=== PATIENT | male | born 1970 | race Caucasian/White ===

== ENCOUNTER 2016-09-19 15:25 | Emergency (ER) | payer SELFPAY ==
[2016-09-19 15:33] VITALS: BP 135/89; PULSE 105; RESP 18; TEMP 98.4
--- NOTE | 2016-09-19 15:42 | ED ---
General Adult HPI - General Chief complaint: Extremity Injury, Lower Stated complaint: Foot Pain Time Seen by Provider: 09/19/16 15:33 Source: patient, RN notes reviewed Mode of arrival: ambulatory Limitations: no limitations - History of Present Illness Initial comments: This is a 46-year-old male presents with right foot pain since yesterday. Patient states he was at work when a work lift ran over his right foot. Patient has been walking since the incident but states there is pain to the medial aspect of the right foot into the great toe. Patient denies any numbness /tingling or weakness. Patient is not on any anticoagulants.Patient denies any recent fever, chills, shortness breath, chest pain, abdominal pain, nausea/ vomiting/diarrhea, back pain,hematuria, headache, or visual changes, or any other complaints. - Related Data Previous Rx's Medication Instructions Recorded HYDROcodone/APAP 5-325MG [[place] 1 tab PO Q6HR #10 tab 09/19/16 5-325] Allergies Allergy/AdvReac Type Severity Reaction Status Date / Time No Known Allergies Allergy Verified 09/19/16 15:32 Review of Systems ROS Statement: Those systems with pertinent positive or pertinent negative responses have been documented in the HPI. ROS Other: All systems not noted in ROS Statement are negative. Past Medical History Past Medical History: No Reported History Additional Past Medical History / Comment(s): HEARING DIFFICULTY, alcohol abuse in the past, heart murmur History of Any Multi-Drug Resistant Organisms: None Reported Past Surgical History: Hernia Repair Additional Past Surgical History / Comment(s): MULTIPLE EAR SURGERIES Past Anesthesia/Blood Transfusion Reactions: No Reported Reaction Past Psychological History: No Psychological Hx Reported Smoking Status: Current every day smoker Past Alcohol Use History: Occasional Past Drug Use History: None Reported - Past Family History Son(s) Family Medical History: Diabetes Mellitus General Exam - General Exam Comments Initial Comments: General: The patient is awake and alert, in no distress, and does not appear acutely ill. Neck: The neck is supple, there is no tenderness or JVD. Cardiovascular: There is a regular rate and rhythm. No murmur, rub or gallop is appreciated. Respiratory: Lungs are clear to auscultation, respirations are non-labored, breath sounds are equal. No wheezes, stridor, rales, or rhonchi. Musculoskeletal: There is tenderness to palpation of the medial aspect of the right foot and over the MTP joint of the first digit on the right foot. There is mild swelling and mild erythema to these areas as well. No ecchymosis. Limited range of motion with flexion and extension of the right toes due to pain. No tenderness with palpation of the medial or lateral malleoli of the right ankle. Full range of motion of the right ankle. Strength 5/5 and Sensation intact. Posterior tibial and dorsalis pedis pulses 2+ bilaterally. Capillary refill is normal at less than 2 seconds. Neurological: A&O x 3. CN II-XII intact, There are no obvious motor or sensory deficits. Coordination appears grossly intact. Speech is normal. Skin: Skin is warm and dry and no rashes or lesions are noted. Psychiatric: Normal mood and affect. Limitations: no limitations Course Vital Signs 09/19/16 15:30 Temperature 98.4 F Pulse Rate 105 H Respiratory 18 Rate Blood Pressure 135/89 O2 Sat by Pulse 98 Oximetry Medical Decision Making - Medical Decision Making This is a 46-year-old male presents with right foot pain since yesterday after getting his foot run over by a forklift at work. On physical exam there is tenderness to palpation of the medial aspect of the right foot and over the MTP joint of the first digit on the right foot. There is mild swelling and mild erythema to these areas as well. No ecchymosis. Limited range of motion with flexion and extension of the right toes due to pain. Full range of motion of the right ankle. Strength 5/5 and Sensation intact. Posterior tibial and dorsalis pedis pulses 2+ bilaterally. Capillary refill is normal at less than 2 seconds. An x-ray of the right foot was done and reviewed showing: There is soft tissue swelling present. Bone mineralization, joint spaces and alignment are maintained. Lucency at medial first digit sesamoid bone could be indicative of fracture or normal variant, correlate for tenderness. No dislocation is evident. Follow-up is indicated. Report read by Dr. Wilkinson. I discussed the results with patient. A short leg posterior OCL splint to the right lower extremity was placed. Neurovascular was rechecked and is intact. Patient was instructed to stay non-weightbearing to the right lower extremity. Patient was instructed to rest, ice, elevate and keep splint on until follow-up with orthopedics. Patient has crutches at home. Discussed patient will be given a short course of [place] for breakthrough pain. Discussed over-the- counter Tylenol or Motrin as needed for pain as well. Discussed with patient to follow-up with orthopedics in the next 1-2 days. Discussed return parameters. Please return to the [facility] symptoms worsen or for any other concerns. Disposition Clinical Impression: Fracture of right foot Disposition: HOME SELF-CARE Condition: Good Instructions: Foot Fracture in Adults (ED) Additional Instructions: Please rest, ice, elevate, and use splint for support. Please stay nonweightbearing to the right lower extremity and use crutches. Please use over -the-counter Motrin and/or Tylenol for pain, may use norco for breakthrough pain. Please follow up with orthopedics tomorrow or as soon as possible. Please return to the [facility] for any worsening symptoms or for any further concerns. Prescriptions: HYDROcodone/APAP 5-325MG [[place] 5-325] 1 tab PO Q6HR #10 tab Referrals: Trino Ely MD [Primary Care Provider] - 1-2 days Logan Pickering MD [STAFF PHYSICIAN] - 1-2 days Time of Disposition: 16:22
--- NOTE | 2016-09-19 15:59 | XR ---
Right foot HISTORY: Trauma and pain 3 views of the right foot, no comparisons There is soft tissue swelling present. Bone mineralization, joint spaces and alignment are maintained . Lucency at medial first digit sesamoid bone could be indicative of fracture or normal variant, eliceo elate for tenderness. IMPRESSION: No dislocation is evident. Follow-up as indicated. Additional findings above.
== END 2016-09-19 16:32 | disposition home or self-care (01) ==
LOC: EC 15:25
DX: S92.901A Unspecified fracture of right foot, initial encounter for closed fracture (principal); V09.00XA Pedestrian injured in nontraffic accident involving unspecified motor vehicles, initial encounter; Y92.69 Other specified industrial and construction area as the place of occurrence of the external cause; Y99.0 Civilian activity done for income or pay; F17.200 Nicotine dependence, unspecified, uncomplicated
CPT/HCPCS: 29515; 99283

== ENCOUNTER 2016-11-28 14:02 | Emergency (ER) | payer OTHER ==
[2016-11-28 14:12] VITALS: RESP 18; TEMP 99.2
[2016-11-28] MEDS ORDERED: MORPHINE SULFATE 4 MG/ML SYRINGE IV STA (16:29)
[2016-11-28] MEDS ORDERED: SODIUM CHLORIDE 0.9% 500 ML IV STA (16:29)
[2016-11-28 17:00] LABS: Basophils # (A) 0.1 k/uL (0-0.2); Basophils % (A) 1 %; CH 32.3; CHCM 32.8; Eosinophils # (A) 0.1 k/uL (0-0.7); Eosinophils % (A) 2 %; HCT 47.3 % (39.0-53.0); HDW 2.17; HGB 15.5 gm/dL (13.0-17.5); Luc # (Auto) 0.23; Luc % (Auto) 3; Lymphocytes # (A) 1.4 k/uL (1.0-4.8); Lymphocytes % (A) 22 %; MCH 32.3 pg (25.0-35.0); MCHC 32.7 g/dL (31.0-37.0); MCV 98.9 fL (80.0-100.0); Monocytes # (A) 0.3 k/uL (0-1.0); Monocytes % (A) 5 %; Neutrophils # (A) 4.4 k/uL (1.3-7.7); Neutrophils % (A) 67 %; RBC 4.78 m/uL (4.30-5.90); RDW 13.1 % (11.5-15.5); WBC 6.6 k/uL (3.8-10.6); WBC (Perox) 6.67
--- NOTE | 2016-11-28 17:01 | XR ---
EXAMINATION TYPE: XR chest 2V DATE OF EXAM: 11/28/2016 4:58 PM COMPARISON: 05/19/2016 HISTORY: Chest pain TECHNIQUE: Frontal and lateral views of the chest are obtained. FINDINGS: There is no focal air space opacity. No evidence for pnuemothorax.No pleural effusion. The cardiac silhouette size is within normal limits. The osseous structures are grossly intact. IMPRESSION: 1. No acute cardiopulmonary process.
[2016-11-28 17:07] LABS: ALT 33 U/L (21-72); AST 29 U/L (17-59); Alkaline Phosphatase 92 U/L (38-126); Anion Gap 10 mmol/L; Blood Urea Nitrogen 10 mg/dL (9-20); Calcium 9.3 mg/dL (8.4-10.2); Carbon Dioxide 22 mmol/L (22-30); Chloride 104 mmol/L (98-107); Glucose 198 mg/dL (74-99); Non-African American GFR(MDRD) >60 (>60 ml/min/1.73 sqM); Potassium 4.2 mmol/L (3.5-5.1); Sodium 136 mmol/L (137-145); Total Bilirubin 0.7 mg/dL (0.2-1.3); Total Protein 7.7 g/dL (6.3-8.2)
[2016-11-28 17:17] LABS: Appearance,Urine Clear (Clear); Bilirubin,Urine Negative (Negative); Glucose,Urine (UA) 3+ (Negative); Ketones,Urine Negative (Negative); Leukocyte Esterase,Urine Negative (Negative); Nitrite,Urine Negative (Negative); Protein,Urine Negative (Negative); UA Billing (MACRO vs. MICRO) CHEM; Urobilinogen,Urine <2.0 mg/dL (<2.0)
--- NOTE | 2016-11-28 18:16 | CT ---
EXAMINATION TYPE: CT abdomen pelvis w con DATE OF EXAM: 11/28/2016 5:45 PM COMPARISON: 09/16/2015 HISTORY: Pt states of abdominal pain x1 week. CT DLP: 340.5 mGycm Automated exposure control for dose reduction was used. TECHNIQUE: Helical acquisition of images was performed from the lung bases through the pelvis. CONTRAST: Performed without Oral Contrast and with IV Contrast, patient injected with 100 mL of Omnipaque 300. FINDINGS: Lung bases are clear. There is no pleural effusion. Heart size is normal. Liver shows no focal defect . Spleen appears normal. There is no pancreatic mass. Gallbladder appears normal. Bile ducts are not dilated. There is no adrenal mass. Kidneys show satisfactory contrast opacification. There is no hydronephrosi s. There is no retroperitoneal adenopathy. There is no ascites. Bladder distends smoothly. There is n o sign of a pelvic mass. The bony structures appear intact. There are surgical clips at the gastroeso phageal junction. I see no intestinal wall thickening. There are some small bowel loops that measure up to 3.3 cm in diameter. I do not see evidence for a mechanical bowel obstruction however. There is fluid in the right colon. IMPRESSION: THERE IS EVIDENCE OF SMALL BOWEL ILEUS. THIS IS SIMILAR TO THE OLD CT SCAN OF 09/16/2015. NO EVIDENCE OF A BOWEL OBSTRUCTION.
--- NOTE | 2016-11-28 18:35 | ED ---
Abdominal Pain HPI - General Chief Complaint: Abdominal Pain Stated Complaint: chest & abdominal pain Time Seen by Provider: 11/28/16 15:56 Source: patient Mode of arrival: ambulatory Limitations: no limitations - History of Present Illness Initial Comments: Patient complains of belly pain, chest pain. The pain is in the left side. Nothing makes it better or worse. He has taken no medication for this. He was not doing anything when he began to feel this way. He has no lightheadedness or dizziness. He has no nausea or vomiting. He is tolerating oral intake. He has no neck pain or stiffness. He denies injuries. He has no pain or swelling the legs. He has no palpitations. - Related Data Home Medications Medication Instructions Recorded Confirmed Ibuprofen [Advil] 200 mg PO Q8HR PRN 11/28/16 11/28/16 Allergies Allergy/AdvReac Type Severity Reaction Status Date / Time No Known Allergies Allergy Verified 11/28/16 16:10 Review of Systems ROS Statement: Those systems with pertinent positive or pertinent negative responses have been documented in the HPI. ROS Other: All systems not noted in ROS Statement are negative. Past Medical History Past Medical History: No Reported History Additional Past Medical History / Comment(s): HEARING DIFFICULTY, alcohol abuse in the past, heart murmur History of Any Multi-Drug Resistant Organisms: None Reported Past Surgical History: Hernia Repair Additional Past Surgical History / Comment(s): MULTIPLE EAR SURGERIES Past Anesthesia/Blood Transfusion Reactions: No Reported Reaction Past Psychological History: No Psychological Hx Reported Smoking Status: Current every day smoker Past Alcohol Use History: Occasional Past Drug Use History: None Reported - Past Family History Son(s) Family Medical History: Diabetes Mellitus General Exam Limitations: no limitations General appearance: alert, in no apparent distress Head exam: Present: atraumatic, normocephalic, normal inspection Eye exam: Present: normal appearance, PERRL, EOMI. Absent: scleral icterus, conjunctival injection, periorbital swelling ENT exam: Present: normal exam, mucous membranes moist Neck exam: Present: normal inspection. Absent: tenderness, meningismus, lymphadenopathy Respiratory exam: Present: normal lung sounds bilaterally. Absent: respiratory distress, wheezes, rales, rhonchi, stridor Cardiovascular Exam: Present: regular rate, normal rhythm, normal heart sounds. Absent: systolic murmur, diastolic murmur, rubs, gallop, clicks GI/Abdominal exam: Present: soft, tenderness, normal bowel sounds. Absent: distended, guarding, rebound, rigid Extremities exam: Present: normal inspection, full ROM, normal capillary refill. Absent: tenderness, pedal edema, joint swelling, calf tenderness Back exam: Present: normal inspection Neurological exam: Present: alert, oriented X3, CN II-XII intact Psychiatric exam: Present: normal affect, normal mood Skin exam: Present: warm, dry, intact, normal color. Absent: rash Course Vital Signs 11/28/16 11/28/16 14:09 16:30 Temperature 99.2 F Pulse Rate 100 Pulse Rate [ 89 Apical] Respiratory 18 Rate Blood Pressure 138/88 O2 Sat by Pulse 97 Oximetry Medical Decision Making - Medical Decision Making Patient complains of abdominal pain and chest pain. His physical exam reveals abdominal tenderness. CAT scan reveals a mild ileus but no obstruction. He is tolerating oral intake. The rest of his labs are normal. There is no evidence of acute coronary syndrome. X-ray of the chest is negative. Patient is feeling better and is stable for discharge. - Lab Data Result diagrams: 11/28/16 16:46 11/28/16 16:46 Lab Results 11/28/16 11/28/16 11/28/16 Range/Units 16:46 16:46 16:46 WBC 6.6 (3.8-10.6) k/uL RBC 4.78 (4.30-5.90) m/uL Hgb 15.5 (13.0-17.5) gm/dL Hct 47.3 (39.0-53.0) % MCV 98.9 (80.0-100.0) fL MCH 32.3 (25.0-35.0) pg MCHC 32.7 (31.0-37.0) g/dL RDW 13.1 (11.5-15.5) % Plt Count 228 (150-450) k/uL Neutrophils % 67 % Lymphocytes % 22 % Monocytes % 5 % Eosinophils % 2 % Basophils % 1 % Neutrophils # 4.4 (1.3-7.7) k/uL Lymphocytes # 1.4 (1.0-4.8) k/uL Monocytes # 0.3 (0-1.0) k/uL Eosinophils # 0.1 (0-0.7) k/uL Basophils # 0.1 (0-0.2) k/uL Sodium 136 L (137-145) mmol/L Potassium 4.2 (3.5-5.1) mmol/L Chloride 104 (98-107) mmol/L Carbon Dioxide 22 (22-30) mmol/L Anion Gap 10 mmol/L BUN 10 (9-20) mg/dL Creatinine 0.60 L (0.66-1.25) mg/dL Est GFR (MDRD) Af Amer >60 (>60 ml/min/1.73 sqM) Est GFR (MDRD) Non-Af >60 (>60 ml/min/1.73 sqM) Glucose 198 H (74-99) mg/dL Calcium 9.3 (8.4-10.2) mg/dL Total Bilirubin 0.7 (0.2-1.3) mg/dL AST 29 (17-59) U/L ALT 33 (21-72) U/L Alkaline Phosphatase 92 (38-126) U/L Troponin I <0.012 (0.000-0.034) ng/mL Total Protein 7.7 (6.3-8.2) g/dL Albumin 3.9 (3.5-5.0) g/dL Lipase 105 (23-300) U/L Urine Color Urine Appearance (Clear) Urine pH (5.0-8.0) Ur Specific [place] (1.001-1.035) Urine Protein (Negative) Urine Glucose (UA) (Negative) Urine Ketones (Negative) Urine Blood (Negative) Urine Nitrite (Negative) Urine Bilirubin (Negative) Urine Urobilinogen (<2.0) mg/dL Ur Leukocyte Esterase (Negative) 11/28/16 Range/Units 17:02 WBC (3.8-10.6) k/uL RBC (4.30-5.90) m/uL Hgb (13.0-17.5) gm/dL Hct (39.0-53.0) % MCV (80.0-100.0) fL MCH (25.0-35.0) pg MCHC (31.0-37.0) g/dL RDW (11.5-15.5) % Plt Count (150-450) k/uL Neutrophils % % Lymphocytes % % Monocytes % % Eosinophils % % Basophils % % Neutrophils # (1.3-7.7) k/uL Lymphocytes # (1.0-4.8) k/uL Monocytes # (0-1.0) k/uL Eosinophils # (0-0.7) k/uL Basophils # (0-0.2) k/uL Sodium (137-145) mmol/L Potassium (3.5-5.1) mmol/L Chloride (98-107) mmol/L Carbon Dioxide (22-30) mmol/L Anion Gap mmol/L BUN (9-20) mg/dL Creatinine (0.66-1.25) mg/dL Est GFR (MDRD) Af Amer (>60 ml/min/1.73 sqM) Est GFR (MDRD) Non-Af (>60 ml/min/1.73 sqM) Glucose (74-99) mg/dL Calcium (8.4-10.2) mg/dL Total Bilirubin (0.2-1.3) mg/dL AST (17-59) U/L ALT (21-72) U/L Alkaline Phosphatase (38-126) U/L Troponin I (0.000-0.034) ng/mL Total Protein (6.3-8.2) g/dL Albumin (3.5-5.0) g/dL Lipase (23-300) U/L Urine Color Yellow Urine Appearance Clear (Clear) Urine pH 5.0 (5.0-8.0) Ur Specific [place] 1.010 (1.001-1.035) Urine Protein Negative (Negative) Urine Glucose (UA) 3+ H (Negative) Urine Ketones Negative (Negative) Urine Blood Negative (Negative) Urine Nitrite Negative (Negative) Urine Bilirubin Negative (Negative) Urine Urobilinogen <2.0 (<2.0) mg/dL Ur Leukocyte Esterase Negative (Negative) Disposition Clinical Impression: Chest pain Disposition: HOME SELF-CARE Condition: Good Instructions: Ileus (ED), Chest Pain (ED) Time of Disposition: 18:34
[2016-11-28 19:31] VITALS: BP 117/84; PULSE 67
== END 2016-11-28 19:31 | disposition home or self-care (01) ==
LOC: EC 14:02
DX: R07.9 Chest pain, unspecified (principal); K56.7 Ileus, unspecified; F17.200 Nicotine dependence, unspecified, uncomplicated
CPT/HCPCS: 36415; 93005; 80053; 83690; 84484; 85025; 81003; 71020; 74177; 99284; 96374; 96361 ×3; J2270; Q9967

== ENCOUNTER 2017-03-31 10:45 | Emergency (ER) | payer OTHER ==
[2017-03-31 10:55] VITALS: RESP 16
--- NOTE | 2017-03-31 11:07 | ED ---
Extremity Problem HPI - General Chief complaint: Extremity Problem,Nontraumatic Stated complaint: left middle finger infection Time Seen by Provider: 03/31/17 11:01 Source: patient, RN notes reviewed Mode of arrival: ambulatory Limitations: no limitations - History of Present Illness Initial comments: 46-year-old male presents emergency Department chief complaint of swelling to his left hand middle finger. Patient states that he started noticing or proximal one month ago but still much worse last week. Patient states it is painful and swollen. Patient complains of paresthesias of his hands states that is normal forearm that he uses hands quite often wakes up with them failure his hands are asleep. Denies any decreased function. Patient denies any fever or chills. He states his tetanus is up-to-date. Patient states he tried to poke a needle into the area swelling but nothing came out. - Related Data Home Medications Medication Instructions Recorded Confirmed Ibuprofen [Advil] 200 - 800 mg PO Q8HR PRN 11/28/16 03/31/17 Previous Rx's Medication Instructions Recorded Sulfamethox-Tmp 800-160Mg [Bactrim 1 each PO Q12HR #20 tab 03/31/17 Ds] Allergies Allergy/AdvReac Type Severity Reaction Status Date / Time No Known Allergies Allergy Verified 03/31/17 11:27 Review of Systems ROS Statement: Those systems with pertinent positive or pertinent negative responses have been documented in the HPI. ROS Other: All systems not noted in ROS Statement are negative. Past Medical History Past Medical History: No Reported History Additional Past Medical History / Comment(s): HEARING DIFFICULTY, alcohol abuse in the past, heart murmur hiatal hernia History of Any Multi-Drug Resistant Organisms: None Reported Past Surgical History: Hernia Repair Additional Past Surgical History / Comment(s): MULTIPLE EAR SURGERIES Past Anesthesia/Blood Transfusion Reactions: No Reported Reaction Past Psychological History: No Psychological Hx Reported Smoking Status: Current every day smoker Past Alcohol Use History: Occasional Past Drug Use History: None Reported - Past Family History Son(s) Family Medical History: Diabetes Mellitus General Exam Limitations: no limitations General appearance: alert, in no apparent distress Respiratory exam: Present: normal lung sounds bilaterally. Absent: respiratory distress, wheezes, rales, rhonchi, stridor Cardiovascular Exam: Present: regular rate, normal rhythm, normal heart sounds. Absent: systolic murmur, diastolic murmur, rubs, gallop, clicks Extremities exam: Present: other (Left hand third digit on medial aspect of the finger between the PIP and DIP there is a 2 cm area of swelling that is boggy or fluctuant slightly erythematous Refill less than 2 seconds patient's full range of motion) Skin exam: Present: warm, dry Course Vital Signs 03/31/17 10:52 Temperature 98.2 F Pulse Rate 87 Respiratory 16 Rate Blood Pressure 135/87 O2 Sat by Pulse 98 Oximetry Procedures - Incision & Drainage Consent Obtained: verbal consent Indication: Your abscess Site: hand (Left hand third digit) Size (cm): 2 Anesthetic Used: lidocaine 1%, without epi Amount (mLs): 3 I&D Cleaning Method: Alcohol Wipe Needle Aspiration Performed?: Yes I&D Drainage Obtained: Pus, Blood Patient Tolerated Procedure: well, no complications Medical Decision Making - Medical Decision Making 46-year-old male present emergency Department for finger swelling. Patient has no abscess which was open and drain. Wound culture was taken patient will be placed on antibiotics return parameters were discussed. Disposition Clinical Impression: Abscess of finger Disposition: HOME SELF-CARE Condition: Stable Instructions: Abscess (ED) Additional Instructions: Please return to the Emergency Department if symptoms worsen or any other concerns. Prescriptions: Sulfamethox-Tmp 800-160Mg [Bactrim Ds] 1 each PO Q12HR #20 tab Referrals: Trino Ely MD [Primary Care Provider] - 1-2 days Gildardo Alexander DO [Doctor of Osteopathic Medicine] - 1-2 days Time of Disposition: 11:49
--- NOTE | 2017-03-31 11:20 | XR ---
EXAMINATION TYPE: XR finger LT DATE OF EXAM: 03/31/2017 COMPARISON: NONE HISTORY: Third digit pain TECHNIQUE: 3 radiographic views of the left third digit were obtained. FINDINGS: There is asymmetric and eccentric swelling of the soft tissues overlying the ulnar aspect o f the middle phalanx of the third digit. No periosteal reaction or osseous fracture is identified. No erosions are seen. Osseous mineralization is unremarkable. Remainder the visualized left hand is als o unremarkable. IMPRESSION: Eccentric soft tissue swelling over the radial aspect of the mid third digit without unde rlying osseous abnormality.
[2017-03-31 12:15] VITALS: BP 142/97; PULSE 80; TEMP 98.8
== END 2017-03-31 12:15 | disposition home or self-care (01) ==
LOC: EC 10:45
DX: L02.512 Cutaneous abscess of left hand (principal); F17.200 Nicotine dependence, unspecified, uncomplicated
CPT/HCPCS: 10160; 87070; 87205; 99283

== ENCOUNTER 2017-10-14 17:04 | Emergency (ER) | payer SELFPAY ==
[2017-10-14] MEDS ORDERED: SODIUM CHLORIDE 0.9% 1,000 ML IV STA (20:05)
--- NOTE | 2017-10-14 20:29 | ED ---
Abdominal Pain HPI - General Chief Complaint: Abdominal Pain Stated Complaint: Chest pain Time Seen by Provider: 10/14/17 19:43 Source: patient, RN notes reviewed Mode of arrival: ambulatory Limitations: no limitations - History of Present Illness Initial Comments: This is a 47-year-old male who presents to the emergency department with chief complaint of chest and abdominal pain. Patient states that on Friday during work he began to have chest pain. He states the chest pain was central in location and "just hurt." He states that the pain is made worse when he takes a deep breath. He also complains of associated shortness of breath. Patient states he is a current every day smoker. He denies any recent surgeries or hospitalizations. Patient states that Friday morning he began having nausea and vomiting. He states that he is able to keep liquids down but cannot keep food down. He denies any sick contacts. He also complains of fevers and chills. Fevers have not been recorded. He did not receive the influenza vaccine this year. Patient states that yesterday he began to develop right- sided abdominal pain. This pain is intermittent, occurring every 2 hours and is sharp in nature. Patient denies any history of abdominal surgeries. - Related Data Home Medications Medication Instructions Recorded Confirmed Ibuprofen [Advil] 200 - 800 mg PO Q8HR PRN 11/28/16 10/14/17 Allergies Allergy/AdvReac Type Severity Reaction Status Date / Time No Known Allergies Allergy Verified 10/14/17 20:09 Review of Systems ROS Statement: Those systems with pertinent positive or pertinent negative responses have been documented in the HPI. ROS Other: All systems not noted in ROS Statement are negative. Past Medical History Past Medical History: No Reported History Additional Past Medical History / Comment(s): HEARING DIFFICULTY, alcohol abuse in the past, heart murmur hiatal hernia History of Any Multi-Drug Resistant Organisms: None Reported Past Surgical History: Hernia Repair Additional Past Surgical History / Comment(s): MULTIPLE EAR SURGERIES Past Anesthesia/Blood Transfusion Reactions: No Reported Reaction Past Psychological History: No Psychological Hx Reported Smoking Status: Current every day smoker Past Alcohol Use History: Occasional Past Drug Use History: None Reported - Past Family History Son(s) Family Medical History: Diabetes Mellitus General Exam - General Exam Comments Initial Comments: General: Awake and alert, well-developed; in no apparent distress. HEENT: Head atraumatic, normocephalic. Pupils are equal, round and reactive to light. Extraocular movements intact. Oropharynx moist without erythema or exudate. Neck: Supple. Normal ROM. Cardiovascular: Regular rate and rhythm. No murmurs, rubs or gallops. Chest symmetrical. Respiratory: Lungs clear to auscultation bilaterally. No wheezes, rales or rhonchi. Normal respiratory effort with no use of accessory muscles. Abdomen: Soft, non-tender, non-distended. No rigidity, rebound or guarding.Normal bowel sounds x 4 quadrants. Musculoskeletal: Normal ROM, no tenderness bilateral upper and lower extremities. Ambulating normally. Skin: [place], warm and dry without rashes or lesions. Neurological: Alert and oriented x3. CN II-XII grossly intact. Speech is fluent and answers are appropriate. No focal neuro deficits. Psychiatric: Normal mood and affect. No overt signs of depression or anxiety noted. Limitations: no limitations Course Vital Signs 10/14/17 10/14/17 17:48 22:34 Temperature 97.6 F 98.6 F Pulse Rate 92 88 Respiratory 20 18 Rate Blood Pressure 134/84 156/92 O2 Sat by Pulse 98 100 Oximetry Medical Decision Making - Medical Decision Making This is a 47-year-old male who presents to the emergency department for evaluation of chest pain and abdominal pain. CBC and CMP were within normal limits. UA was normal. Patient was given Pepcid and Zofran as well as GI cocktail in the emergency department. He states that he is no longer having abdominal or chest pain after receiving these medications. EKG revealed sinus rhythm with short HI. When compared to previous EKG there are no obvious changes. No ST elevation or depression noted. Troponin was negative. Discussed with patient admission as cardiac cause for his pain cannot be completely ruled out. Patient refuses, stating that he will follow up with his primary care physician tomorrow for treatment of acid reflux. Patient will be discharged home. Vital signs are stable and he is in no acute distress. Return parameters were discussed. All questions answered. - Lab Data Result diagrams: 10/14/17 20:19 10/14/17 20:19 Lab Results 10/14/17 10/14/17 10/14/17 Range/Units 20:19 20:19 20:19 WBC 6.4 (3.8-10.6) k/uL RBC 4.90 (4.30-5.90) m/uL Hgb 15.4 (13.0-17.5) gm/dL Hct 48.9 (39.0-53.0) % MCV 99.7 (80.0-100.0) fL MCH 31.4 (25.0-35.0) pg MCHC 31.5 (31.0-37.0) g/dL RDW 13.1 (11.5-15.5) % Plt Count 224 (150-450) k/uL Neutrophils % 55 % Lymphocytes % 31 % Monocytes % 6 % Eosinophils % 3 % Basophils % 1 % Neutrophils # 3.5 (1.3-7.7) k/uL Lymphocytes # 2.0 (1.0-4.8) k/uL Monocytes # 0.4 (0-1.0) k/uL Eosinophils # 0.2 (0-0.7) k/uL Basophils # 0.1 (0-0.2) k/uL PT (9.0-12.0) sec INR (<1.2) APTT (22.0-30.0) sec Sodium 140 (137-145) mmol/L Potassium 4.5 (3.5-5.1) mmol/L Chloride 105 (98-107) mmol/L Carbon Dioxide 22 (22-30) mmol/L Anion Gap 13 mmol/L BUN 6 L (9-20) mg/dL Creatinine 0.59 L (0.66-1.25) mg/dL Est GFR (MDRD) Af Amer >60 (>60 ml/min/1.73 sqM) Est GFR (MDRD) Non-Af >60 (>60 ml/min/1.73 sqM) Glucose 94 (74-99) mg/dL Calcium 9.6 (8.4-10.2) mg/dL Total Bilirubin 0.4 (0.2-1.3) mg/dL AST 30 (17-59) U/L ALT 29 (21-72) U/L Alkaline Phosphatase 104 (38-126) U/L Total Creatine Kinase 57 (55-170) U/L CK-MB (CK-2) 0.5 (0.0-2.4) ng/mL CK-MB (CK-2) Rel Index 0.9 Troponin I <0.012 (0.000-0.034) ng/mL Total Protein 8.2 (6.3-8.2) g/dL Albumin 4.3 (3.5-5.0) g/dL Amylase 96 (30-110) U/L Lipase 124 (23-300) U/L Urine Color Urine Appearance (Clear) Urine pH (5.0-8.0) Ur Specific Holden (1.001-1.035) Urine Protein (Negative) Urine Glucose (UA) (Negative) Urine Ketones (Negative) Urine Blood (Negative) Urine Nitrite (Negative) Urine Bilirubin (Negative) Urine Urobilinogen (<2.0) mg/dL Ur Leukocyte Esterase (Negative) 10/14/17 10/14/17 Range/Units 20:19 20:19 WBC (3.8-10.6) k/uL RBC (4.30-5.90) m/uL Hgb (13.0-17.5) gm/dL Hct (39.0-53.0) % MCV (80.0-100.0) fL MCH (25.0-35.0) pg MCHC (31.0-37.0) g/dL RDW (11.5-15.5) % Plt Count (150-450) k/uL Neutrophils % % Lymphocytes % % Monocytes % % Eosinophils % % Basophils % % Neutrophils # (1.3-7.7) k/uL Lymphocytes # (1.0-4.8) k/uL Monocytes # (0-1.0) k/uL Eosinophils # (0-0.7) k/uL Basophils # (0-0.2) k/uL PT 9.3 (9.0-12.0) sec INR 0.9 (<1.2) APTT 22.4 (22.0-30.0) sec Sodium (137-145) mmol/L Potassium (3.5-5.1) mmol/L Chloride (98-107) mmol/L Carbon Dioxide (22-30) mmol/L Anion Gap mmol/L BUN (9-20) mg/dL Creatinine (0.66-1.25) mg/dL Est GFR (MDRD) Af Amer (>60 ml/min/1.73 sqM) Est GFR (MDRD) Non-Af (>60 ml/min/1.73 sqM) Glucose (74-99) mg/dL Calcium (8.4-10.2) mg/dL Total Bilirubin (0.2-1.3) mg/dL AST (17-59) U/L ALT (21-72) U/L Alkaline Phosphatase (38-126) U/L Total Creatine Kinase (55-170) U/L CK-MB (CK-2) (0.0-2.4) ng/mL CK-MB (CK-2) Rel Index Troponin I (0.000-0.034) ng/mL Total Protein (6.3-8.2) g/dL Albumin (3.5-5.0) g/dL Amylase (30-110) U/L Lipase (23-300) U/L Urine Color Yellow Urine Appearance Clear (Clear) Urine pH 6.0 (5.0-8.0) Ur Specific Holden 1.006 (1.001-1.035) Urine Protein Negative (Negative) Urine Glucose (UA) Negative (Negative) Urine Ketones Negative (Negative) Urine Blood Negative (Negative) Urine Nitrite Negative (Negative) Urine Bilirubin Negative (Negative) Urine Urobilinogen <2.0 (<2.0) mg/dL Ur Leukocyte Esterase Negative (Negative) - EKG Data EKG Comments: EKG at 18:01:30. Sinus rhythm with short HI. Septal infarct, age undetermined. Ventricular rate 78 bpm, HI interval 110, QRS duration 86, QT/ QTC 356/405. No evidence of ST segment elevation or depression. - Radiology Data Radiology results: report reviewed X-ray KUB findings: There is no sign of intestinal instruction or pneumoperitoneum. Physical pattern is normal. There are no pathologic calcifications over the kidneys. Lung bases are clear consolidation. There is slight blunting of left costophrenic angle. Impression: Pleural diaphragmatic scarring of the left lung base without change. Nonacute abdomen. Disposition Clinical Impression: Atypical chest pain Disposition: HOME SELF-CARE Condition: Good Instructions: Chest Pain (ED), Gastroesophageal Reflux Disease (ED) Additional Instructions: Please follow up with your primary care physician tomorrow morning. Please follow up with primary care provider within 1-2 days. Return to emergency department if symptoms should worsen or any concerns arise. Referrals: Trino Ely MD [Primary Care Provider] - 1-2 days Time of Disposition: 22:15
[2017-10-14 20:36] LABS: Basophils # (A) 0.1 k/uL (0-0.2); Basophils % (A) 1 %; Eosinophils # (A) 0.2 k/uL (0-0.7); Eosinophils % (A) 3 %; HCT 48.9 % (39.0-53.0); HGB 15.4 gm/dL (13.0-17.5); Lymphocytes % (A) 31 %; MCH 31.4 pg (25.0-35.0); MCHC 31.5 g/dL (31.0-37.0); MCV 99.7 fL (80.0-100.0); Mean Platelet Volume 6.9; Monocytes # (A) 0.4 k/uL (0-1.0); Monocytes % (A) 6 %; Neutrophils # (A) 3.5 k/uL (1.3-7.7); Neutrophils % (A) 55 %; Platelet Count 224 k/uL (150-450); RDW 13.1 % (11.5-15.5); WBC 6.4 k/uL (3.8-10.6)
[2017-10-14] MEDS ORDERED: FAMOTIDINE 20 MG/2 ML VIAL IV STA (20:36)
[2017-10-14] MEDS ORDERED: ONDANSETRON 4 MG/2 ML VIAL IVP STA (20:36)
[2017-10-14 20:41] LABS: Appearance,Urine Clear (Clear); Bilirubin,Urine Negative (Negative); Blood,Urine Negative (Negative); Color,Urine Yellow; Glucose,Urine (UA) Negative (Negative); Ketones,Urine Negative (Negative); Leukocyte Esterase,Urine Negative (Negative); Nitrite,Urine Negative (Negative); Protein,Urine Negative (Negative); Specific Gravity,Urine 1.006 (1.001-1.035); Urobilinogen,Urine <2.0 mg/dL (<2.0)
[2017-10-14 20:48] LABS: INR 0.9 (<1.2); Partial Thromboplastin Time 22.4 sec (22.0-30.0); Prothrombin Time 9.3 sec (9.0-12.0)
--- NOTE | 2017-10-14 20:48 | XR ---
EXAMINATION TYPE: XR KUB DATE OF EXAM: 10/14/2017 COMPARISON: 09/17/2015 HISTORY: Abdominal pain TECHNIQUE: 2 views FINDINGS: There is no sign of intestinal obstruction or pneumoperitoneum. Fecal pattern is normal. Th ere are no pathologic calcifications over the kidneys. Lung bases are clear of consolidation. There i s slight blunting of left costophrenic angle. IMPRESSION: Pleural diaphragmatic scarring at the left lung base without change. Nonacute abdomen.
[2017-10-14 20:57] LABS: ALT 29 U/L (21-72); AST 30 U/L (17-59); Albumin 4.3 g/dL (3.5-5.0); Alkaline Phosphatase 104 U/L (38-126); Amylase 96 U/L (30-110); Anion Gap 13 mmol/L; Blood Urea Nitrogen 6 mg/dL (9-20); Calcium 9.6 mg/dL (8.4-10.2); Carbon Dioxide 22 mmol/L (22-30); Chloride 105 mmol/L (98-107); Glucose 94 mg/dL (74-99); Lipase 124 U/L (23-300); Potassium 4.5 mmol/L (3.5-5.1); Sodium 140 mmol/L (137-145); Total Bilirubin 0.4 mg/dL (0.2-1.3); Total Protein 8.2 g/dL (6.3-8.2)
[2017-10-14] MEDS ORDERED: MAG HYDROX/AL HYDROX/SIMETH 30 ML, HYOSCYAMINE ELIXIR 10 ML, CIMETIDINE HCL 300 MG, LID... PO STA ×4 (21:20)
[2017-10-14 21:33] LABS: Creatine Kinase 57 U/L (55-170)
[2017-10-14 21:46] LABS: Creatine Kinase MB 0.5 ng/mL (0.0-2.4); Troponin I <0.012 ng/mL (0.000-0.034)
[2017-10-14 22:35] VITALS: BP 156/92; PULSE 88; RESP 18; TEMP 98.6
== END 2017-10-14 22:34 | disposition home or self-care (01) ==
LOC: EC 17:04
DX: R07.89 Other chest pain (principal); R06.02 Shortness of breath; R11.2 Nausea with vomiting, unspecified; F17.200 Nicotine dependence, unspecified, uncomplicated
CPT/HCPCS: 99284; 96374; 96375; 96361; 36415; 93005; 80053; 82150; 82550; 82553; 83690; 84484; 85025; 85610; 85730; 81003; 87086; 74018; J2405

== ENCOUNTER 2017-10-21 15:06 | Emergency (ER) | payer SELFPAY ==
[2017-10-21 15:10] VITALS: RESP 18
[2017-10-21] MEDS ORDERED: SODIUM CHLORIDE 0.9% 1,000 ML IV STA (15:26)
[2017-10-21] MEDS ORDERED: methylPREDNISolone SOD SUCCI 125 MG/2 ML VIAL IV STA (15:26)
[2017-10-21] MEDS ORDERED: IPRATROPIUM-ALBUTEROL 3 ML NEB INHALATION STA (15:26)
[2017-10-21] MEDS ORDERED: LABETALOL 5 MG/ML VIAL MDV IVP STA (15:38)
--- NOTE | 2017-10-21 15:38 | ED ---
Chest Pain HPI - General Chief Complaint: Chest Pain Stated Complaint: chest pain Time Seen by Provider: 10/21/17 15:11 Source: patient, RN notes reviewed, old records reviewed Mode of arrival: ambulatory Limitations: no limitations - History of Present Illness Initial Comments: This patient is a 47-year-old male presents emergency department increased chest pain, shortness of breath and productive cough for the past few days. Patient reports that he was seen in the emergency department and was diagnosed with GERD and chest pain and was advised to follow-up with his primary care provider. Patient reports he has not followed up with primary care provider. He states that his symptoms are seeming to become worse. He reports that when he takes deep breath he has some pain on his right side of his lungs. Patient states that he is a smoker. Denies lower extremity swelling or pain. Patient also reports he's had intermittent fevers for the past 2 days. Patient denies any recent fever, chills, , back pain, abdominal pain, nausea vomiting, numbness or tingling, dysuria or hematuria, constipation or diarrhea, headaches or visual changes, or any other current symptoms - Related Data Home Medications Medication Instructions Recorded Confirmed Omeprazole 20 mg PO DAILY 10/21/17 10/21/17 Previous Rx's Medication Instructions Recorded Albuterol Inhaler [Ventolin Hfa 1 - 2 puff INHALATION Q6HR PRN #1 10/21/17 Inhaler] inhaler Levofloxacin [Levaquin] 750 mg PO DAILY #5 tab 10/21/17 predniSONE 50 mg PO DAILY #5 tablet 10/21/17 Allergies Allergy/AdvReac Type Severity Reaction Status Date / Time No Known Allergies Allergy Verified 10/21/17 15:54 Review of Systems ROS Statement: Those systems with pertinent positive or pertinent negative responses have been documented in the HPI. ROS Other: All systems not noted in ROS Statement are negative. EKG Findings - EKG Comments: EKG Findings:: EKG performed at 1517 shows sinus rhythm with short HI. Septal infarct age undetermined. Patient's is evidence of abnormal EKG. Ventricular rate of 77 bpm. HI interval 108 ms. QRS duration 84 ms. QT QTc is 354/400 ms. Past Medical History Past Medical History: GERD/Reflux Additional Past Medical History / Comment(s): HEARING DIFFICULTY, alcohol abuse in the past, heart murmur History of Any Multi-Drug Resistant Organisms: None Reported Past Surgical History: Hernia Repair Additional Past Surgical History / Comment(s): MULTIPLE EAR SURGERIES Past Anesthesia/Blood Transfusion Reactions: No Reported Reaction Past Psychological History: No Psychological Hx Reported Smoking Status: Current every day smoker Past Alcohol Use History: Occasional Past Drug Use History: None Reported - Past Family History Son(s) Family Medical History: Diabetes Mellitus General Exam - General Exam Comments Initial Comments: 47-year-old male. No acute distress. Limitations: no limitations General appearance: alert, in no apparent distress Head exam: Present: atraumatic, normocephalic, normal inspection Eye exam: Present: normal appearance, PERRL, EOMI. Absent: scleral icterus, conjunctival injection, periorbital swelling ENT exam: Present: normal exam, mucous membranes moist Neck exam: Present: normal inspection. Absent: tenderness, meningismus, lymphadenopathy Respiratory exam: Present: normal lung sounds bilaterally. Absent: respiratory distress, wheezes, rales, rhonchi, stridor Cardiovascular Exam: Present: regular rate, normal rhythm, normal heart sounds. Absent: systolic murmur, diastolic murmur, rubs, gallop, clicks GI/Abdominal exam: Present: soft, normal bowel sounds. Absent: distended, tenderness, guarding, rebound, rigid Neurological exam: Present: alert, oriented X3, CN II-XII intact Psychiatric exam: Present: normal affect, normal mood Course Vital Signs 10/21/17 10/21/17 10/21/17 15:07 15:52 15:54 Temperature 98.1 F Pulse Rate 83 74 Respiratory 18 Rate Blood Pressure 171/93 157/70 O2 Sat by Pulse 97 Oximetry 10/21/17 10/21/17 16:04 17:38 Temperature 97.9 F Pulse Rate 74 78 Respiratory 18 Rate Blood Pressure 160/86 O2 Sat by Pulse 97 Oximetry Chest Pain MDM - [facility] 47-year-old male with extensive smoking history and poor compliance presents with shortness of breath and cough. Low-grade fever's. He reports he's been having some chest pain as well. Patient's EKG was reviewed and she has no cute changes. Troponins are negative. Patient's lab work was reviewed and negative for any significant abnormalities. Just x-ray shows no events of pneumonia. Patient did have some wheezing have Surekha. He was given a breathing treatment IV steroids. Treated as COPD exacerbation. At this time patient reports that he feels well and would like to go home. I did discuss that he will be starting on steroids anabiotic's for COPD exacerbation. I discussed that he needs have very close follow up with primary care fighter. Also seems to have an a component of Gerd reflecting hisPain. Patient ports that has a very poorly compliant patient continues to smoke and will not follow the diet for Gerd. I just got a genius to do these things. I just got returned trailers. Patient agrees to treatment plan and will comply. Disposition Clinical Impression: COPD (chronic obstructive pulmonary disease) Disposition: HOME SELF-CARE Condition: Good Instructions: COPD (Chronic Obstructive Pulmonary Disease) (ED) Additional Instructions: Patient advised to follow-up with primary care physician. Take the medications as prescribed. Return to emergency department if any alarming signs or symptoms occur. Monitor diet and avoid any foods associated with GERD including acidic foods. Prescriptions: Albuterol Inhaler [Ventolin Hfa Inhaler] 1 - 2 puff INHALATION Q6HR PRN #1 inhaler PRN Reason: Shortness Of Breath Levofloxacin [Levaquin] 750 mg PO DAILY #5 tab predniSONE 50 mg PO DAILY #5 tablet Referrals: Trino Ely MD [Primary Care Provider] - 1-2 days Time of Disposition: 17:29
[2017-10-21 15:54] LABS: Basophils % (A) 1 %; Eosinophils # (A) 0.1 k/uL (0-0.7); Eosinophils % (A) 1 %; HCT 47.8 % (39.0-53.0); HGB 15.2 gm/dL (13.0-17.5); Lymphocytes # (A) 1.5 k/uL (1.0-4.8); Lymphocytes % (A) 26 %; MCH 31.6 pg (25.0-35.0); MCHC 31.8 g/dL (31.0-37.0); MCV 99.1 fL (80.0-100.0); Mean Platelet Volume 7.2; Monocytes # (A) 0.5 k/uL (0-1.0); Monocytes % (A) 10 %; Neutrophils # (A) 3.4 k/uL (1.3-7.7); Neutrophils % (A) 58 %; Platelet Count 211 k/uL (150-450); RBC 4.82 m/uL (4.30-5.90); RDW 13.1 % (11.5-15.5); WBC 5.8 k/uL (3.8-10.6)
[2017-10-21 15:59] LABS: ALT 17 U/L (21-72); AST 26 U/L (17-59); Albumin 4.1 g/dL (3.5-5.0); Alkaline Phosphatase 130 U/L (38-126); Anion Gap 10 mmol/L; Blood Urea Nitrogen 9 mg/dL (9-20); Calcium 9.5 mg/dL (8.4-10.2); Carbon Dioxide 24 mmol/L (22-30); Chloride 103 mmol/L (98-107); Glucose 149 mg/dL (74-99); Magnesium 2.1 mg/dL (1.6-2.3); Potassium 4.6 mmol/L (3.5-5.1); Sodium 137 mmol/L (137-145); Total Bilirubin 0.5 mg/dL (0.2-1.3); Total Protein 7.9 g/dL (6.3-8.2)
[2017-10-21 16:01] LABS: D-Dimer 0.5 mg/L FEU (<0.60); INR 0.9 (<1.2); Partial Thromboplastin Time 22.9 sec (22.0-30.0); Prothrombin Time 9.4 sec (9.0-12.0)
[2017-10-21 16:12] LABS: Creatine Kinase 50 U/L (55-170)
--- NOTE | 2017-10-21 16:24 | XR ---
EXAMINATION TYPE: XR chest 2V DATE OF EXAM: 10/21/2017 COMPARISON: Prior chest x-ray 11/28/2016 HISTORY: Difficulty breathing, shortness of breath TECHNIQUE: Frontal and lateral views of the chest are obtained. FINDINGS: There is no focal air space opacity, pleural effusion, or pneumothorax seen. The cardiac silhouette size is within normal limits. Prominent lung volumes again noted suggesting underlying [employer] D. Patient is rotated. The osseous structures are intact. IMPRESSION: No acute cardiopulmonary process.
[2017-10-21 16:25] LABS: Creatine Kinase MB 0.3 ng/mL (0.0-2.4); Troponin I <0.012 ng/mL (0.000-0.034)
[2017-10-21 17:40] VITALS: BP 160/86; PULSE 78; TEMP 97.9
== END 2017-10-21 17:40 | disposition home or self-care (01) ==
LOC: EC 15:06
DX: J44.9 Chronic obstructive pulmonary disease, unspecified (principal); K21.9 Gastro-esophageal reflux disease without esophagitis; F17.200 Nicotine dependence, unspecified, uncomplicated; Z79.899 Other long term (current) drug therapy
CPT/HCPCS: 99285; 96374; 96361; 36415; 94640; 93005; 85379; 83880; 80053; 82550; 82553; 83735; 84484; 85025; 85610; 85730; 87040; 71046; J2930

== ENCOUNTER 2018-03-15 12:06 | Emergency (ER) | payer BC ==
[2018-03-15 12:24] VITALS: BP 110/77; PULSE 88; RESP 18; TEMP 98.3
--- NOTE | 2018-03-15 12:37 | ED ---
ENT HPI - General Chief complaint: ENT Stated complaint: Ear laceration Time Seen by Provider: 03/15/18 12:25 Source: patient, RN notes reviewed Mode of arrival: ambulatory Limitations: no limitations - History of Present Illness Initial comments: This a 47-year-old male presents emergency Department with chief complaint of right ear laceration. He states that he was dismantling a pop-up camper and states that there was a spring holding the one site on states that when he removed it it shot off the campers striking his ear. He states that he did not lose consciousness that he complains of a headache at this time. Patient has a laceration of the top of his right ear and states he did not realize the extent of it until this morning. Patient had reconstructive surgery on his right TM in the past. Patient states his tetanus was updated 2 years ago denies any bleeding from his ear canal. - Related Data Previous Rx's Medication Instructions Recorded Albuterol Inhaler [Ventolin Hfa 1 - 2 puff INHALATION Q6HR PRN #1 10/21/17 Inhaler] inhaler Cephalexin [Keflex] 500 mg PO Q6HR #40 cap 03/15/18 Allergies Allergy/AdvReac Type Severity Reaction Status Date / Time No Known Allergies Allergy Verified 03/15/18 12:23 Review of Systems ROS Statement: Those systems with pertinent positive or pertinent negative responses have been documented in the HPI. ROS Other: All systems not noted in ROS Statement are negative. Past Medical History Past Medical History: GERD/Reflux Additional Past Medical History / Comment(s): HEARING DIFFICULTY, alcohol abuse in the past, heart murmur History of Any Multi-Drug Resistant Organisms: None Reported Past Surgical History: Hernia Repair Additional Past Surgical History / Comment(s): MULTIPLE EAR SURGERIES Past Anesthesia/Blood Transfusion Reactions: No Reported Reaction Past Psychological History: No Psychological Hx Reported Smoking Status: Current every day smoker Past Alcohol Use History: Occasional Past Drug Use History: Marijuana - Past Family History Son(s) Family Medical History: Diabetes Mellitus General Exam Limitations: no limitations General appearance: alert, in no apparent distress Head exam: Present: atraumatic, normocephalic, normal inspection Eye exam: Present: normal appearance, PERRL, EOMI. Absent: scleral icterus, conjunctival injection, periorbital swelling ENT exam: Present: normal oropharynx, mucous membranes moist, TM's normal bilaterally. Absent: normal external ear exam (There is a laceration at the helix of the right ear it is through and through no active bleeding) Neck exam: Present: normal inspection, full ROM. Absent: tenderness, meningismus, lymphadenopathy Respiratory exam: Present: normal lung sounds bilaterally. Absent: respiratory distress, wheezes, rales, rhonchi, stridor Cardiovascular Exam: Present: regular rate, normal rhythm, normal heart sounds. Absent: systolic murmur, diastolic murmur, rubs, gallop, clicks Neurological exam: Present: alert, oriented X3, CN II-XII intact, reflexes normal. Absent: motor sensory deficit Skin exam: Present: warm, dry, intact, normal color. Absent: rash Course Vital Signs 03/15/18 12:21 Temperature 98.3 F Pulse Rate 88 Respiratory 18 Rate Blood Pressure 110/77 O2 Sat by Pulse 97 Oximetry Medical Decision Making - Medical Decision Making 47-year-old male presented from for right ear laceration. Patient's laceration is over 18 hours old. There will be no closure at this time he'll be started on antibiotics. He did have a CT of his brain which showed no abnormality. Patient will follow-up with on-call ENT Dr. Murillo. Return parameters were discussed. Disposition Clinical Impression: Head injury, Laceration of ear Disposition: HOME SELF-CARE Condition: Stable Instructions: Laceration (ED) Additional Instructions: Please return to the Emergency Department if symptoms worsen or any other concerns. Prescriptions: Cephalexin [Keflex] 500 mg PO Q6HR #40 cap Is patient prescribed a controlled substance at d/c from ED?: No Referrals: Trino Ely MD [Primary Care Provider] - 1-2 days Cole Murillo MD [STAFF PHYSICIAN] - 1-2 days Time of Disposition: 13:19
--- NOTE | 2018-03-15 13:13 | CT ---
EXAMINATION TYPE: CT brain wo con DATE OF EXAM: 03/15/2018 COMPARISON: Previous study dated 05/19/2016. HISTORY: Hit in right ear with pipe CT DLP: 1121 mGycm Automated exposure control for dose reduction was used. FINDINGS: Central structures are midline. There is no evidence of hydrocephalus. No acute focal lesion, mass ef fect or midline shift is seen. I do not see evidence of intracranial blood. There is chronic mucoperiosteal thickening involving the ethmoid sinuses bilaterally. There is undera eration of the mastoid air cells. This may be due to chronic mastoiditis. IMPRESSION: 1. NO ACUTE INTRACRANIAL ABNORMALITY. 2. CHRONIC ETHMOIDAL SINUS MUCOSAL DISEASE. 3. UNDERAERATION OF THE MASTOIDS MAY BE DUE TO CHRONIC MASTOID DISEASE.
[2018-03-15] MEDS ORDERED: KETOROLAC 60 MG/2 ML VIAL IM STA (13:21)
== END 2018-03-15 13:41 | disposition home or self-care (01) ==
LOC: EC 12:06
DX: S01.311A Laceration without foreign body of right ear, initial encounter (principal); S09.90XA Unspecified injury of head, initial encounter; F17.200 Nicotine dependence, unspecified, uncomplicated; W22.8XXA Striking against or struck by other objects, initial encounter
CPT/HCPCS: 70450; 99283; 96372; J1885

== ENCOUNTER 2018-03-23 09:16 | Day surgery (SDC) | payer BC ==
[2018-03-20 08:58] VITALS: BMI 20.3
--- NOTE | 2018-03-22 19:07 | HP ---
HISTORY AND PHYSICAL CHIEF COMPLAINT: Right ear trauma. HISTORY OF PRESENT ILLNESS: This patient is a 47-year-old male who was recently referred to my office via the [facility] Emergency Room for evaluation following trauma to the right ear. The patient presented to the emergency room on 03/15/2018 with a complaint of having been struck on the right side of his head while trying to assemble a pop-up camper. The patient states that he did not lose consciousness. However, there was significant bleeding. He was seen in the emergency room and a CT scan of the head and brain did not reveal any evidence of any concussion or intracranial lesions. However, the patient sustained a significant laceration to the right ear. I was notified of the patient's injury and advised them to refer him to my office and also placed him on oral antibiotics. At the time that the patient was seen in my office the patient stated that he smokes approximately a pack of cigarettes per day and was advised to quit for obvious health reasons. In addition, this clinical examination of the ear revealed that there was a significant laceration through the skin and cartilage located at the superior helix of the patient's right ear. In addition to this, there appeared to be some excoriation of some of the skin at the superior helix of the right ear. There was a question whether or not there was a small island of skin present. The ear was extremely tender and therefore was extremely difficult to examine the patient in the office. It was recommended the patient undergo repair of traumatic laceration to the right ear under general anesthetic. It was advised to the patient at that time that the decision would be made whether or not a skin graft from the right postauricular area would be appropriate for his injury. PAST MEDICAL HISTORY: Reveals he has no known allergies to medications. He is generally not on any prescription medications. His only current medication is Keflex 500 mg p.o. b.i.d., which was prescribed by the [facility] Emergency Room. There is no history of asthma, diabetes mellitus or hypertension. REVIEW OF SYSTEMS: Completely unremarkable. PHYSICAL EXAMINATION: The patient is a pleasant 47-year-old male who was alert and cooperative. HEENT EXAMINATION: Patient is normocephalic. Tympanic membrane, middle ear spaces are free of any fluid or blood. Examination of the right ear/auricle reveals a through and through laceration of the skin and cartilage located at the superior helix of the right ear. In addition to this, in an area adjacent to the laceration, there appears to be excoriation of some of the skin from the superior helix. It is difficult at this time to determine whether or not bare cartilage is exposed. Examination of the left ear is unremarkable. No other suspicious lesions are noted of the patient's scalp. Pupils are equal, round, reactive to light and accommodation. Extraocular movements within normal limits. Intranasal examination reveals moderate to severe septal deviation with compensatory hypertrophy of the inferior turbinates and a moderate amount of mucus on the mucous membranes draining down the posterior pharynx. Examination of oropharynx, cranial nerves 2 through 12 and remainder of the head and neck exam all within normal limits. CHEST/CARDIOVASCULAR: Both lung judd are clear to percussion and auscultation. Lung sounds are somewhat distant. The patient does admit that he apparently has updraft treatment machine at home which uses albuterol on a p.r.n. basis. The patient states he uses it rarely. The patient is in regular sinus rhythm. S1 and S2 are present. No murmurs S3s or S4s. Peripheral pulses are bilaterally symmetrical. ABDOMEN: There is no evidence the masses, megaly or tenderness. The abdomen is soft. Skin is unremarkable. Musculoskeletal and neurological are within normal limits. The rectal exam is deferred at this time because the patient has done on a regular basis at his family physician's office. The remainder of physical exam is essentially unremarkable. DIAGNOSTIC IMPRESSION: Trauma to the left ear/auricle including excoriation of skin and laceration of the superior helix. PLAN: The patient is scheduled undergo repair/reconstruction of the laceration of the superior helix of the right ear and also a possible postauricular skin graft to an area of excoriation of skin of the superior helix of the right ear under general anesthesia. Attention RNs: I have ordered the following medications with this patient to receive in the pre-surgical area, namely, Ancef 2 grams IV x1 and also 1000 mg of Ofirmev IV, both of these medications are to be given once an intravenous line has been established. I have not ordered any other pre surgical prophylactic antibiotics for this patient. If the pharmacy department sends any other pre-surgical prophylactic antibiotics to the pre-surgical area for this patient, that order should be cancelled and the medication returned to the Pharmacy Department. Also please make sure that the patient's account is credited appropriately. I have discussed the risks, benefits and alternative therapies for the above-mentioned procedure and for both sedation/analgesia as well as necessary blood product administration, if indicated, as they pertain to this patient. The patient has indicated his or her understanding and acceptance of the risks and procedures discussed. SUSHMA / SAVANNA: [id number] /
[~2018-03-23 09:16] MED LIST: DEXAMETHASONE SOD PHOSPHATE 10 MG/ML 1 ML VIAL IV ONE; LACTATED RINGERS 1,000 ML IV SCH; LIDOCAINE 1% 20 ML VIAL (10MG/ML) FOR IV START INTRADERMA PRN; MIDAZOLAM 2 MG/2 ML VIAL IV PRN; ONDANSETRON 4 MG/2 ML VIAL IVP ONE; fentaNYL (PF) 50 MCG/ML 2 ML AMP IV PRN
[2018-03-23 09:52] VITALS: RESP 16
[2018-03-23] MEDS ORDERED: ceFAZolin IN SWFI 2 GM/20 ML SYRINGE IVP ONE (10:00)
[2018-03-23] MEDS ORDERED: ACETAMINOPHEN IV (For NPO) 1,000 MG in EMPTY BAG 1 BAG IVPB ONE (10:35)
[2018-03-23] MEDS ORDERED: LIDOCAINE 1% INJ 10MG/ML (20 ML MDV) ONE (11:25)
[2018-03-23] MEDS ORDERED: fentaNYL (PF) 50 MCG/ML 2 ML AMP ONE (11:25)
[2018-03-23] MEDS ORDERED: ePHEDrine SULFATE/0.9% NACL/PF 50 MG/5 ML SYRINGE IV ONE (11:25)
[2018-03-23] MEDS ORDERED: SUCCINYLCHOLINE CHLORIDE 100 MG/5 ML SYR IV ONE (11:25)
[2018-03-23] MEDS ORDERED: MIDAZOLAM 2 MG/2 ML VIAL ONE (11:25)
[2018-03-23] MEDS ORDERED: PROPOFOL 10 MG/ML 20 ML VIAL IV ONE (11:25)
[2018-03-23] MEDS ORDERED: BACITRACIN 500 UNIT/GM OINT 28.4 GM TUBE TOPICAL ONE (11:58)
[2018-03-23 12:54] VITALS: TEMP 98.8
[2018-03-23] MEDS ORDERED: LACTATED RINGERS 1,000 ML IV ONE (13:15)
[2018-03-23 14:07] VITALS: BP 110/70; PULSE 75
--- NOTE | 2018-03-23 17:29 | OP ---
OPERATIVE REPORT DATE OF SURGERY: 03/23/2018 PREOPERATIVE DIAGNOSES: Through and through laceration of the superior helix of the right auricle/ear with excoriation of approximately 7 mm of skin of the superior helix of the right ear. POSTOPERATIVE DIAGNOSES: Through and through laceration of the superior helix of the right auricle/ear with excoriation of approximately 7 mm of the skin of the superior helix of the right ear. ANESTHESIA: General anesthesia. OPERATIVE PROCEDURE: Wedge excision of laceration of the right ear along with area of skin that was excoriated and complex closure using burrows triangle. Size of area excised was approximately 1.5 cm. SURGEON: Dr. Murillo. COMPLICATIONS: None. ESTIMATED BLOOD LOSS: Less than less than 15 mL. OPERATIVE PROCEDURE: The patient was placed on the operating table in supine position. After uneventful induction and endotracheal intubation, satisfactory general anesthesia was obtained. Next, the patient's right ear was prepped and draped in the usual and customary fashion. Closer examination of the patient's right ear while on anesthesia revealed that not only was there a through and through laceration encompassing the superior helix and extending down towards the antihelix of the right ear, there was also approximately a 7 mm area of excoriation of the skin with exposed cartilage at the superior helix of the right ear. Therefore, it was decided that the best way to repair this area would be to do a wedge excision, which included the area of the laceration along with area of excoriated skin. This was done in the usual fashion by outlining the proposed wedge excision using a Codman marking pen with care being taken to save as much of the normal tissue as possible. Areas where the skin was excoriated were included and the wedged that was excised. Next, using a #11 scalpel blade, the wedge area was excised in the usual and customary fashion. Hemostasis was obtained using electrocautery. Next, josh's triangles were made at the inferior aspect of the wedge in an effort to relieve some of the tension caused by the cartilage on the wound defect. The wound defect was closed in 3 layers using 5-0 rapid absorbing Vicryl suture in an interrupted fashion to approximate the edges of the cartilage, beginning at the apex and working superiorly working towards the superior aspect of the ear. Next, the subcutaneous tissue was carefully approximated using 5-0 interrupted suture in a buried fashion. Finally, the skin edges were carefully approximated using 4-0 rapid absorbing Vicryl and interrupted buried and also in an interrupted simple fashion beginning anteriorly and working posteriorly on the ear. The ear was closed with minimal tension on the wound by using the josh's triangles to complete this complex closure. At this point, the procedure was terminated. There were no intraoperative complications. A small dab of Dermabond was applied at 1 area of the skin edges posteriorly to further approximate and hold the skin edges together. At this point, the procedure was terminated. There were no intraoperative complications. Patient tolerated procedure well. Estimated blood loss less than 15 mL. The patient was returned to the recovery room in satisfactory condition. MMODL / IJN: [id number] /
== END 2018-03-23 14:28 | disposition home or self-care (01) ==
LOC: OR 09:16
PROVIDERS: ATTEND Otolaryngology
DX: S01.311A Laceration without foreign body of right ear, initial encounter (principal); W22.8XXA Striking against or struck by other objects, initial encounter; Y93.89 Activity, other specified; K21.9 Gastro-esophageal reflux disease without esophagitis; F17.210 Nicotine dependence, cigarettes, uncomplicated; Z79.891 Long term (current) use of opiate analgesic; Z79.51 Long term (current) use of inhaled steroids
CPT/HCPCS: 13151; J2250; J1100; J2405; J2001; J3010; J0131; J0330; J2704; J0690

== ENCOUNTER 2018-08-26 11:41 | Observation (INO) | payer BC ==
[2018-08-26] MEDS ORDERED: IPRATROPIUM-ALBUTEROL 3 ML NEB INHALATION STA (12:08)
--- NOTE | 2018-08-26 12:10 | ED ---
Chest Pain HPI - General Chief Complaint: Chest Pain Stated Complaint: chest pain Time Seen by Provider: 08/26/18 11:55 Source: patient, family, RN notes reviewed Mode of arrival: wheelchair Limitations: no limitations - History of Present Illness Initial Comments: This is a 48-year-old male with a history of COPD who does still smoke who states he's had 4 days of right-sided chest pain sharp in nature which gets worse with breathing and movement and now is radiating to the left side. He has had a cough with yellow phlegm he's had 2 days of fever no overt chills or sweats no other modifying factors at this time. MD Complaint: chest pain, other - Related Data Home Medications Medication Instructions Recorded Confirmed Ibuprofen [Motrin Ib] 800 mg PO Q6H PRN 08/26/18 08/26/18 Allergies Allergy/AdvReac Type Severity Reaction Status Date / Time No Known Allergies Allergy Verified 08/26/18 11:55 Review of Systems ROS Statement: Those systems with pertinent positive or pertinent negative responses have been documented in the HPI. ROS Other: All systems not noted in ROS Statement are negative. EKG Findings - EKG Results: EKG: interpreted by RAYMUNDO, sinus rhythm (Sinus rhythm with short AZ interval the rate was 88 AZ interval 110 QRS duration 70 QT since QTC 346/418 nonspecific septal changes.) Past Medical History Past Medical History: COPD, GERD/Reflux Additional Past Medical History / Comment(s): traumatic tear rt ear(seen in ER for injury on 03-15-18 stated. " was hit on side of head with steel pipe from tearing down a trailer")stated "was told by had a concussion",HEARING DIFFICULTY,heart murmur,left ear-[place] hearing aid,rt ear [place] History of Any Multi-Drug Resistant Organisms: None Reported Past Surgical History: Hernia Repair Additional Past Surgical History / Comment(s): MULTIPLE EAR SURGERIES Past Anesthesia/Blood Transfusion Reactions: No Reported Reaction Additional Past Anesthesia/Blood Transfusion Reaction / Comment(s): no hx blood transfusion Past Psychological History: No Psychological Hx Reported Smoking Status: Current every day smoker Past Alcohol Use History: Daily Past Drug Use History: Marijuana - Past Family History Son(s) Family Medical History: Diabetes Mellitus General Exam - General Exam Comments Initial Comments: This is a well-developed asthenic appearing awake alert oriented times female Limitations: no limitations General appearance: alert, in no apparent distress Head exam: Present: atraumatic, normocephalic, normal inspection Eye exam: Present: normal appearance, PERRL, EOMI. Absent: scleral icterus, conjunctival injection, periorbital swelling ENT exam: Present: mucous membranes dry Neck exam: Present: normal inspection, other. Absent: tenderness, meningismus, lymphadenopathy Respiratory exam: Present: wheezes, decreased breath sounds. Absent: respiratory distress, rales, rhonchi, stridor Cardiovascular Exam: Present: regular rate, normal rhythm, normal heart sounds. Absent: systolic murmur, diastolic murmur, rubs, gallop, clicks GI/Abdominal exam: Present: soft, normal bowel sounds. Absent: distended, tenderness, guarding, rebound, rigid, bruit, pulsatile mass Extremities exam: Present: normal inspection, full ROM, normal capillary refill. Absent: tenderness, pedal edema, joint swelling, calf tenderness Back exam: Present: normal inspection Neurological exam: Present: alert, oriented X3, CN II-XII intact Psychiatric exam: Present: normal affect, normal mood Skin exam: Present: warm, dry, intact, normal color. Absent: rash Course Vital Signs 08/26/18 08/26/18 08/26/18 11:46 12:17 12:26 Temperature 98.2 F Pulse Rate 96 82 Respiratory 18 20 Rate Blood Pressure 140/92 O2 Sat by Pulse 99 Oximetry 08/26/18 08/26/18 08/26/18 12:36 13:57 14:27 Temperature Pulse Rate 80 80 96 Respiratory 16 16 Rate Blood Pressure 141/76 125/88 O2 Sat by Pulse 98 97 Oximetry 08/26/18 08/26/18 15:39 16:10 Temperature Pulse Rate 82 79 Respiratory 15 16 Rate Blood Pressure 139/92 121/89 O2 Sat by Pulse 98 96 Oximetry Chest Pain MDM - MDM Patient had some recurrence of his chest pain. He did have a CAT scan done which showed no evidence of pulmonary embolism. I did discuss the findings with patient family as well as Dr. Ely. Patient be admitted consultation Dr. Caity Palacios Clinical Impression: Chest pain, Elevated d-dimer Disposition: ADMITTED IP TO THIS [facility] Condition: Stable Referrals: Trino Ely MD [Primary Care Provider] - 1-2 days
[2018-08-26 13:05] LABS: Basophils % (A) 0 %; Eosinophils # (A) 0.1 k/uL (0-0.7); Eosinophils % (A) 2 %; HCT 51.6 % (39.0-53.0); HGB 16.7 gm/dL (13.0-17.5); Lymphocytes # (A) 1.4 k/uL (1.0-4.8); Lymphocytes % (A) 19 %; MCH 31.7 pg (25.0-35.0); MCHC 32.3 g/dL (31.0-37.0); Mean Platelet Volume 7.2; Monocytes # (A) 0.6 k/uL (0-1.0); Monocytes % (A) 7 %; Neutrophils # (A) 5.3 k/uL (1.3-7.7); Neutrophils % (A) 70 %; Platelet Count 240 k/uL (150-450); RBC 5.26 m/uL (4.30-5.90); RDW 13.3 % (11.5-15.5); WBC 7.6 k/uL (3.8-10.6)
[2018-08-26 13:24] LABS: INR 0.8 (<1.2); Partial Thromboplastin Time 23.9 sec (22.0-30.0); Prothrombin Time 9.4 sec (9.0-12.0)
[2018-08-26 13:33] LABS: ALT 40 U/L (21-72); AST 60 U/L (17-59); Albumin 4.5 g/dL (3.5-5.0); Alkaline Phosphatase 102 U/L (38-126); Anion Gap 9 mmol/L; Blood Urea Nitrogen 12 mg/dL (9-20); Calcium 9.7 mg/dL (8.4-10.2); Carbon Dioxide 26 mmol/L (22-30); Chloride 102 mmol/L (98-107); Glucose 84 mg/dL (74-99); Magnesium 2.2 mg/dL (1.6-2.3); Potassium 5.4 mmol/L (3.5-5.1); Sodium 137 mmol/L (137-145); Total Bilirubin 0.7 mg/dL (0.2-1.3); Total Protein 9.1 g/dL (6.3-8.2)
--- NOTE | 2018-08-26 13:35 | XR ---
EXAMINATION TYPE: XR chest 2V DATE OF EXAM: 08/26/2018 COMPARISON: Chest x-ray October 21, 2017 HISTORY: Chest pain for 4 days. TECHNIQUE: Frontal and lateral views of the chest are obtained. FINDINGS: Overlying EKG leads are seen. Background chronic emphysematous changes redemonstrated. The re is stable small left pleural effusion or pleural thickening. Right lung is clear. The cardiac quinten houette size is within normal limits. The osseous structures are intact. IMPRESSION: Chronic emphysematous change without new acute pulmonary process.
[2018-08-26 13:36] LABS: D-Dimer 1.21 mg/L FEU (<0.60)
[2018-08-26 13:37] LABS: Creatine Kinase 49 U/L (55-170)
[2018-08-26 13:50] LABS: Creatine Kinase MB 0.5 ng/mL (0.0-2.4); Troponin I <0.012 ng/mL (0.000-0.034)
[2018-08-26] MEDS ORDERED: ASPIRIN 81 MG PO STA (14:01)
[2018-08-26] MEDS ORDERED: NITROGLYCERIN SL TABS 0.4 MG TAB SUBLINGUAL STA (14:02)
--- NOTE | 2018-08-26 15:18 | CT ---
EXAMINATION TYPE: CT angio chest DATE OF EXAM: 08/26/2018 COMPARISON: None HISTORY: Diffuse chest pain and difficulty breathing. CT DLP: 221.3 mGycm CONTRAST: CT chest with contrast and 3D reconstruction with MIP imaging is performed with IV Contrast, patient injected with 70 mL of Isovue 370. Contrast-enhanced CT of the chest was performed through the course of the pulmonary arteries with angelique g and mediastinal window settings submitted. 3D reconstruction with MIP imaging was also performed. PULMONARY ARTERIES: The pulmonary arteries and their major tributaries are patent. I do not see juanito dence for sizable filling defect to suggest pulmonary embolic process. LUNGS: Upper lobe emphysematous changes noted. The lungs are clear and free of infiltrate. No evidenc e for atelectasis. No pulmonary nodule or mass is detected. No pleural effusion. MEDIASTINUM: Thoracic aorta is of normal caliber,however, evaluation is limited given timing of the contrast bolus. If there is concern for thoracic aortic pathology consider KIMBERLY. Correlate clinicall y . The heart is not enlarged. No evidence for mediastinal mass. No mediastinal lymph nodes greater than 1cm. HILAR STRUCTURES: No evidence for mass. No hilar lymph nodes greater than 1 cm. UPPER ABDOMEN: No significant abnormality is seen. IMPRESSION: 1. No evidence for Pulmonary embolism at this time.
[2018-08-26] MEDS ORDERED: NITROGLYCERIN SL TABS 0.4 MG TAB SUBLINGUAL PRN (16:23)
[2018-08-26] MEDS ORDERED: HEPARIN SODIUM,PORCINE 5,000 UNIT/ML 1 ML VIAL IV ONE (16:23)
--- NOTE | 2018-08-26 16:23 | ED ---
Medical Decision Making - Lab Data Result diagrams: 08/26/18 12:10 08/26/18 12:10 Lab Results 08/26/18 08/26/18 08/26/18 Range/Units 12:10 12:10 12:10 WBC 7.6 (3.8-10.6) k/uL RBC 5.26 (4.30-5.90) m/uL Hgb 16.7 (13.0-17.5) gm/dL Hct 51.6 (39.0-53.0) % MCV 98.0 (80.0-100.0) fL MCH 31.7 (25.0-35.0) pg MCHC 32.3 (31.0-37.0) g/dL RDW 13.3 (11.5-15.5) % Plt Count 240 (150-450) k/uL Neutrophils % 70 % Lymphocytes % 19 % Monocytes % 7 % Eosinophils % 2 % Basophils % 0 % Neutrophils # 5.3 (1.3-7.7) k/uL Lymphocytes # 1.4 (1.0-4.8) k/uL Monocytes # 0.6 (0-1.0) k/uL Eosinophils # 0.1 (0-0.7) k/uL Basophils # 0.0 (0-0.2) k/uL PT (9.0-12.0) sec INR (<1.2) APTT (22.0-30.0) sec D-Dimer (<0.60) mg/L FEU Sodium 137 (137-145) mmol/L Potassium 5.4 H (3.5-5.1) mmol/L Chloride 102 (98-107) mmol/L Carbon Dioxide 26 (22-30) mmol/L Anion Gap 9 mmol/L BUN 12 (9-20) mg/dL Creatinine 0.62 L (0.66-1.25) mg/dL Est GFR (CKD-EPI)AfAm >90 (>60 ml/min/1.73 sqM) Est GFR (CKD-EPI)NonAf >90 (>60 ml/min/1.73 sqM) Glucose 84 (74-99) mg/dL Calcium 9.7 (8.4-10.2) mg/dL Magnesium 2.2 (1.6-2.3) mg/dL Total Bilirubin 0.7 (0.2-1.3) mg/dL AST 60 H (17-59) U/L ALT 40 (21-72) U/L Alkaline Phosphatase 102 (38-126) U/L Total Creatine Kinase 49 L (55-170) U/L CK-MB (CK-2) 0.5 (0.0-2.4) ng/mL CK-MB (CK-2) Rel Index 1.0 Troponin I <0.012 (0.000-0.034) ng/mL NT-Pro-B Natriuret Pep pg/mL Total Protein 9.1 H (6.3-8.2) g/dL Albumin 4.5 (3.5-5.0) g/dL 08/26/18 08/26/18 Range/Units 12:10 12:10 WBC (3.8-10.6) k/uL RBC (4.30-5.90) m/uL Hgb (13.0-17.5) gm/dL Hct (39.0-53.0) % MCV (80.0-100.0) fL MCH (25.0-35.0) pg MCHC (31.0-37.0) g/dL RDW (11.5-15.5) % Plt Count (150-450) k/uL Neutrophils % % Lymphocytes % % Monocytes % % Eosinophils % % Basophils % % Neutrophils # (1.3-7.7) k/uL Lymphocytes # (1.0-4.8) k/uL Monocytes # (0-1.0) k/uL Eosinophils # (0-0.7) k/uL Basophils # (0-0.2) k/uL PT 9.4 (9.0-12.0) sec INR 0.8 (<1.2) APTT 23.9 (22.0-30.0) sec D-Dimer 1.21 H (<0.60) mg/L FEU Sodium (137-145) mmol/L Potassium (3.5-5.1) mmol/L Chloride (98-107) mmol/L Carbon Dioxide (22-30) mmol/L Anion Gap mmol/L BUN (9-20) mg/dL Creatinine (0.66-1.25) mg/dL Est GFR (CKD-EPI)AfAm (>60 ml/min/1.73 sqM) Est GFR (CKD-EPI)NonAf (>60 ml/min/1.73 sqM) Glucose (74-99) mg/dL Calcium (8.4-10.2) mg/dL Magnesium (1.6-2.3) mg/dL Total Bilirubin (0.2-1.3) mg/dL AST (17-59) U/L ALT (21-72) U/L Alkaline Phosphatase (38-126) U/L Total Creatine Kinase (55-170) U/L CK-MB (CK-2) (0.0-2.4) ng/mL CK-MB (CK-2) Rel Index Troponin I (0.000-0.034) ng/mL NT-Pro-B Natriuret Pep 58 pg/mL Total Protein (6.3-8.2) g/dL Albumin (3.5-5.0) g/dL Disposition Clinical Impression: Chest pain, Elevated d-dimer, Bronchitis Disposition: ADMITTED IP TO THIS HOSP Condition: Stable Referrals: Trino Ely MD [Primary Care Provider] - 1-2 days
[2018-08-26] MEDS ORDERED: HEPARIN SOD,PORK IN 0.45% NACL 25,000 UNIT in 0.45% NACL 1 250ML.BAG IV SCH (16:30)
[2018-08-26 18:57] LABS: Creatine Kinase 36 U/L (55-170)
[2018-08-26 19:11] LABS: Creatine Kinase MB 0.3 ng/mL (0.0-2.4); Troponin I <0.012 ng/mL (0.000-0.034)
[2018-08-26] MEDS: IPRATROPIUM-ALBUTEROL 3 ML NEB INHALATION SCH (19:48)
[2018-08-26 20:52] VITALS: BMI 20.9
[2018-08-26] MEDS: NITROGLYCERIN OINT 1 INCH/GM PACKET TOPICAL SCH (20:53)
[2018-08-26] MEDS: NICOTINE 21MG/24HR PATCH TRANSDERM SCH (22:03)
[2018-08-27] MEDS: NITROGLYCERIN OINT 1 INCH/GM PACKET TOPICAL SCH ×3 (00:20→11:49)
[2018-08-27] MEDS ORDERED: ACETAMINOPHEN TAB 325 MG TAB PO PRN (00:31)
[2018-08-27] MEDS: IPRATROPIUM-ALBUTEROL 3 ML NEB INHALATION SCH ×4 (00:52→18:48)
[2018-08-27 01:19] LABS: Cholesterol 184 mg/dL (<200); HDL Cholesterol 110 mg/dL (40-60); LDL Cholesterol,Calculated 62 mg/dL (0-99); Triglycerides 60 mg/dL (<150)
[2018-08-27 01:46] LABS: Creatine Kinase 36 U/L (55-170)
[2018-08-27 02:00] LABS: Creatine Kinase MB 0.3 ng/mL (0.0-2.4); Troponin I <0.012 ng/mL (0.000-0.034)
[2018-08-27] MEDS: ASPIRIN 325 MG TAB PO SCH (09:01)
[2018-08-27] MEDS: NICOTINE 21MG/24HR PATCH TRANSDERM SCH (09:01)
--- NOTE | 2018-08-27 15:07 | P.CRDCN ---
History of Present Illness History of present illness: This is a pleasant 48-year-old male past medical history significant for chronic nicotine dependence. He denies history of coronary artery disease, diabetes mellitus or dyslipidemia. He states in the past he was told he has high blood pressure however he was unable to tolerate the medication due to causing dizziness so he stopped taking it. He is currently not on any anti- hypertensive medications. We have been asked to see him in consultation for chest pain. He states for the past week he has been having intermittent symptoms of pain in his chest. Sometimes the pain is on the right anterior chest wall, sometimes on the left. It moves around frequently. There is some radiation through to the back at times as well. The pain is worse when he is moving around his torso, coughing or when he takes a deep breath. He also has some associated shortness of breath, however he states he always has a level of exertional shortness of breath. He denies dizziness, nausea, vomiting, diaphoresis or palpitations. He has been started on heparin infusion, breathing treatments and nitropaste. EKG reveals sinus mechanism with peaked T waves anteriorly, poor R-wave progression and short MD interval. Chest x-ray reveals chronic emphysematous changes with no acute cardiopulmonary process. CT angiogram chest negative for pulmonary embolism normal thoracic aorta. Laboratory data reviewed, WBC 7.6, hemoglobin 16.7, platelets 240, d-dimer 1.21 , sodium 137, potassium 5.4, creatinine 0.62, magnesium 2.2, cardiac enzymes negative 3, LDL 62, HDL 110, and T proBNP 58. He takes no daily cardiac medications. At the time of my exam: CONSTITUTIONAL: Denies fever. Denies chills. EYES: Denies blurred vision. Denies vision changes. Denies eye pain. EARS, NOSE, MOUTH & THROAT: Denies headache. Denies sore throat. Denies ear pain. CARDIOVASCULAR: Denies chest pain. Denies shortness of breath. Denies orthopnea. Denies PND. Denies palpitations. RESPIRATORY: Complains of chronic cough. GASTROINTESTINAL: Denies abdominal pain. Denies diarrhea. Denies constipation. Denies nausea. Denies vomiting. MUSCULOSKELETAL: Denies myalgias. INTEGUMENTARY: Denies pruitis. Denies rash. NEUROLOGIC: Denies numbness. Denies tingling. Denies weakness. PSYCHIATRIC: Denies anxiety. Denies depression. ENDOCRINE: Denies fatigue. Denies weight change. Denies polydipsia. Denies polyurina. GENITOURINARY: Denies burning, hematuria or urgency with micturation. HEMATOLOGIC: Denies history of anemia. Denies bleeding. Blood pressure 119/86 heart rate 74 afebrile maintaining oxygen saturation on room air GENERAL: This is a 48-year-old male in no apparent distress at the time of my examination. HEENT: Head is atraumatic, normocephalic. Pupils are equal, round. Sclerae anicteric. Conjunctivae are clear. Mucous membranes of the mouth are moist. Neck is supple. There is no jugular venous distention. No carotid bruit is heard. LUNGS: Clear to auscultation no wheezes, rales or rhonchi. No chest wall tenderness is noted on palpation or with deep breathing. HEART: Regular rate and rhythm without murmurs, rubs or gallops. S1 and S2 heard. ABDOMEN: Soft, nontender. Bowel sounds are heard. No organomegaly noted. EXTREMITIES: No evidence of peripheral edema and no calf tenderness noted. VASCULAR: Radial and dorsalis pedis pulses palpated, no evidence of clubbing. NEUROLOGIC: Patient is awake, alert and oriented x3. ASSESSMENT Chest pain, atypical. Patient is very pleuritic and most likely related to musculoskeletal strain due to coughing. COPD Chronic nicotine dependence Chronic daily alcohol use PLAN An acute coronary event has been ruled out with no EKG evidence of ischemia and negative cardiac enzymes. Obtain 2-D echocardiogram and Doppler study to assess cardiac structure and function. Increase activity and assess for ongoing symptoms of exertional chest discomfort. Continue to observe for another 24 hours and will consider possible stress testing if warranted. Tobacco cessation discussed and recommended. Thank you kindly for this consultation. Nurse Practitioner note has been reviewed, I agree with a documented findings and plan of care. Patient was seen and examined. Past Medical History Past Medical History: COPD, GERD/Reflux Additional Past Medical History / Comment(s): traumatic tear rt ear(seen in ER for injury on 03-15-18 stated. " was hit on side of head with steel pipe from tearing down a trailer")stated "was told by Dr had a concussion",heart murmur, left ear-[place]- hearing aid,rt ear elem History of Any Multi-Drug Resistant Organisms: None Reported Past Surgical History: Hernia Repair Additional Past Surgical History / Comment(s): MULTIPLE EAR SURGERIES Past Anesthesia/Blood Transfusion Reactions: No Reported Reaction Additional Past Anesthesia/Blood Transfusion Reaction / Comment(s): no hx blood transfusion Past Psychological History: No Psychological Hx Reported Smoking Status: Current every day smoker Past Alcohol Use History: Daily Additional Past Alcohol Use History / Comment(s): started smoking at age 16,1 ppd. pt states he drinks 2 beers a day after work. denies ever going thru with withdrawl. last drink 08/26 Past Drug Use History: Marijuana Additional Drug Use History / Comment(s): uses marijuana every 6 mos - Past Family History Son(s) Family Medical History: Diabetes Mellitus Medications and Allergies Home Medications Medication Instructions Recorded Confirmed Type Ibuprofen [Motrin Ib] 800 mg PO Q6H PRN 08/26/18 08/26/18 History Allergies Allergy/AdvReac Type Severity Reaction Status Date / Time No Known Allergies Allergy Verified 08/26/18 11:55 Physical Exam Vitals: Vital Signs Temp Pulse Pulse Resp BP BP Pulse Ox 08/27/18 14:23 72 08/27/18 14:11 76 08/27/18 11:33 98.1 F 80 18 116/79 98 08/27/18 07:25 74 08/27/18 07:20 98.1 F 74 18 119/86 98 08/27/18 07:12 72 08/27/18 04:00 97.9 F 92 18 129/84 98 08/27/18 01:02 72 08/27/18 00:53 69 08/27/18 00:00 18 08/26/18 23:07 98.2 F 85 18 134/83 97 08/26/18 20:02 98.6 F 91 18 125/98 100 08/26/18 20:00 98.2 F 74 71 18 154/89 96 08/26/18 19:48 72 08/26/18 19:00 90 16 142/98 97 08/26/18 18:00 76 16 126/79 98 08/26/18 17:00 70 18 139/92 98 08/26/18 16:10 79 16 121/89 96 08/26/18 16:01 66 11 L 139/92 98 08/26/18 15:39 82 15 139/92 98 08/26/18 15:00 132/88 Intake and Output 08/26/18 08/27/18 08/27/18 22:59 06:59 14:59 Intake Total 351.499 Balance 351.499 Intake: Intake, IV Titration 129.499 Amount Heparin Sod,Pork in 0.45% 129.499 NaCl 25,000 unit In 0.45 % NaCl 1 250ml.bag @ 12 UNITS/KG/HR 7.07 mls/hr IV .Q24H [facility] Rx#: [id number] Oral 222 Other: # Voids 2 Weight 58.967 kg Results 08/26/18 12:10 08/26/18 12:10 Cardiac Enzymes 08/26/18 08/27/18 Range/Units 18:10 00:20 CK-MB (CK-2) 0.3 0.3 (0.0-2.4) ng/mL Troponin I <0.012 <0.012 (0.000-0.034) ng/mL Coagulation 08/27/18 08/27/18 Range/Units 00:20 11:22 APTT 29.7 27.7 (22.0-30.0) sec Lipids 08/27/18 Range/Units 00:20 Triglycerides 60 (<150) mg/dL Cholesterol 184 (<200) mg/dL HDL Cholesterol 110 H (40-60) mg/dL Current Medications Generic Name Dose Route Start Last Admin Trade Name Freq PRN Reason Stop Dose Admin Acetaminophen 650 mg 08/27/18 00:31 08/27/18 00:41 Tylenol Tab PO 650 mg Q4HR PRN Administration Fever and/ or Pain Albuterol/Ipratropium 3 ml 08/26/18 20:00 08/27/18 14:11 Duoneb 0.5 Mg-3 Mg/3 Ml Soln INHALATION 3 ml RT-Q6H RACHNA Administration Aspirin 325 mg 08/27/18 09:00 08/27/18 09:01 Aspirin PO 325 mg DAILY [facility] Administration Nicotine 1 patch 08/26/18 21:00 08/27/18 09:01 Habitrol 21mg/24hr Patch TRANSDERM 1 patch DAILY RACHNA Administration Nitroglycerin 1 inch 08/26/18 18:00 08/27/18 11:49 Nitro-Bid Oint TOPICAL Not Given Q6HR [facility] Nitroglycerin 0.4 mg 08/26/18 16:23 Nitrostat SUBLINGUAL Q5M PRN Chest Pain Intake and Output 08/26/18 08/27/18 08/27/18 22:59 06:59 14:59 Intake Total 351.499 Balance 351.499 Intake: Intake, IV Titration 129.499 Amount Heparin Sod,Pork in 0.45% 129.499 NaCl 25,000 unit In 0.45 % NaCl 1 250ml.bag @ 12 UNITS/KG/HR 7.07 mls/hr IV .Q24H [facility] Rx#: [id number] Oral 222 Other: # Voids 2 Weight 58.967 kg 08/26/18 12:10 08/26/18 12:10
--- NOTE | 2018-08-27 18:23 | P.HPIM ---
History of Present Illness H&P Date: 08/27/18 Chief Complaint: Right-sided chest pain going on for 1 week no shifting towards left 48-year-old male active history of smoking and nicotine use extremely hard of hearing patient presented into the hospital with problems associated with one- week history of chest pain predominantly on the right side [facility] [place] however lately shifting towards the left side came into the hospital for further evaluation has been evaluated by cardiovascular services, patient had mildly elevated d-dimer however computed tomography scan of the chest and have been negative for pulmonary embolism patient the is been scheduled for a stress test tomorrow, patient does have ongoing history of intermittent dry cough but denies any sputum production patient to denies any nocturnal awakening does have cough mostly in the morning, denies any seizure-like activity loss of consciousness), denies any bowel or bladder problem, patient does carry risk factors for coronary artery disease extensive smoking however denies any problems associated with prior episode diabetes or dyslipidemia he does have a issues related to blood pressure however Review of Systems All systems: negative Past Medical History Past Medical History: COPD, GERD/Reflux Additional Past Medical History / Comment(s): traumatic tear rt ear(seen in ER for injury on 03-15-18 stated. " was hit on side of head with steel pipe from tearing down a trailer")stated "was told by had a concussion",heart murmur, [place] ear[place] hearing aid[place] ear [place] History of Any Multi-Drug Resistant Organisms: None Reported Past Surgical History: Hernia Repair Additional Past Surgical History / Comment(s): MULTIPLE EAR SURGERIES Past Anesthesia/Blood Transfusion Reactions: No Reported Reaction Additional Past Anesthesia/Blood Transfusion Reaction / Comment(s): no hx blood transfusion Past Psychological History: No Psychological Hx Reported Smoking Status: Current every day smoker Past Alcohol Use History: Daily Additional Past Alcohol Use History / Comment(s): started smoking at age 16,1 ppd. pt states he drinks 2 beers a day after work. denies ever going thru with withdrawl. last drink 08/26 Past Drug Use History: Marijuana Additional Drug Use History / Comment(s): uses marijuana every 6 mos - Past Family History Son(s) Family Medical History: Diabetes Mellitus Medications and Allergies Home Medications Medication Instructions Recorded Confirmed Type Ibuprofen [Motrin Ib] 800 mg PO Q6H PRN 08/26/18 08/26/18 History Allergies Allergy/AdvReac Type Severity Reaction Status Date / Time No Known Allergies Allergy Verified 08/26/18 11:55 Physical Exam Vitals: Vital Signs Temp Pulse Pulse Resp BP BP Pulse Ox 08/27/18 15:53 98.5 F 76 18 112/73 98 08/27/18 14:23 72 08/27/18 14:11 76 08/27/18 11:33 98.1 F 80 18 116/79 98 08/27/18 07:25 74 08/27/18 07:20 98.1 F 74 18 119/86 98 08/27/18 07:12 72 08/27/18 04:00 97.9 F 92 18 129/84 98 08/27/18 01:02 72 08/27/18 00:53 69 08/27/18 00:00 18 08/26/18 23:07 98.2 F 85 18 134/83 97 08/26/18 20:02 98.6 F 91 18 125/98 100 08/26/18 20:00 98.2 F 74 71 18 154/89 96 08/26/18 19:48 72 08/26/18 19:00 90 16 142/98 97 Intake and Output 08/27/18 08/27/18 08/27/18 06:59 14:59 22:59 Intake Total 351.499 200 Balance 351.499 200 Intake: Intake, IV Titration 129.499 Amount Heparin Sod,Pork in 0.45% 129.499 NaCl 25,000 unit In 0.45 % NaCl 1 250ml.bag @ 12 UNITS/KG/HR 7.07 mls/hr IV .Q24H [facility] Rx#: [id number] Oral 222 200 Other: # Voids 2 2 GENERAL: This is a 48-year-old male in no apparent distress at the time of my examination. HEENT: Head is atraumatic, normocephalic. Pupils are equal, round. Sclerae anicteric. Conjunctivae are clear. Mucous membranes of the mouth are moist. Neck is supple. There is no jugular venous distention. No carotid bruit is heard. LUNGS: Clear to auscultation no wheezes, rales or rhonchi. No chest wall tenderness is noted on palpation or with deep breathing. HEART: Regular rate and rhythm without murmurs, rubs or gallops. S1 and S2 heard. ABDOMEN: Soft, nontender. Bowel sounds are heard. No organomegaly noted. EXTREMITIES: No evidence of peripheral edema and no calf tenderness noted. VASCULAR: Radial and dorsalis pedis pulses palpated, no evidence of clubbing. NEUROLOGIC: Patient is awake, alert and oriented x3. Results CBC & Chem 7: 08/26/18 12:10 08/26/18 12:10 Labs: Abnormal Lab Results - Last 24 Hours (Table) 08/26/18 08/27/18 08/27/18 Range/Units 18:10 00:20 00:20 Total Creatine Kinase 36 L 36 L (55-170) U/L HDL Cholesterol 110 H (40-60) mg/dL Microbiology - Last 24 Hours (Table) 08/26/18 12:30 Blood Culture - Preliminary Blood No Growth after 24 hours Abdominal x-ray: report reviewed, image reviewed (Chest x-ray as well as CAT scan consistent with COPD and emphysema) CT scan - chest: report reviewed, image reviewed Thrombosis Risk Factor Assmnt - Choose All That Apply Each Factor Represents 1 point: Abnormal pulmonary function (COPD), Age 41-60 years Thrombosis Risk Factor Assessment Total Risk Factor Score: 2 Thrombosis Risk Factor Assessment Level: Low Risk Assessment and Plan Assessment: Chest pain possible coronary artery disease cannot be excluded with rest factors smoking Extensive smoking and nicotine use possible baseline COPD cannot be excluded Suspect component of COPD exacerbation will put patient on IV steroids and breathing treatments
[2018-08-27] MEDS: BUDESONIDE 0.5 MG/2 ML NEBU INHALATION SCH (18:47)
--- NOTE | 2018-08-27 19:40 | ECHOF ---
Referral Reason:cp MEASUREMENTS -------- HEIGHT: 165.1 cm WEIGHT: 5.9 kg BP: IVSd: 1.0 cm (0.6 - 1.1) LVIDd: 3.7 cm (3.9 - 5.3) LVPWd: 1.2 cm (0.6 - 1.1) IVSs: 1.4 cm LVIDs: 2.6 cm LVPWs: 1.1 cm Ao Diam: 3.5 cm (2.0 - 3.7) AV Cusp: 1.6 cm (1.5 - 2.6) LA Diam: 3.3 cm (2.7 - 3.8) MV EXCURSION: 16.312 mm (> 18.000) MV EF SLOPE: 90 mm/s (70 - 150) EPSS: 1.0 cm MV E Paul: 0.60 m/s MV DecT: 237 ms MV A Paul: 0.71 m/s MV E/A Ratio: 0.85 RAP: 5.00 mmHg FINDINGS -------- Sinus rhythm. This was a technically adequate study. LV size, wall thickness and systolic function are normal, with an EF greater than 55%. The left balwinder tricular size is normal. The right ventricle is normal in size. The left atrial size is normal. The right atrial size is normal. The aortic valve is trileaflet, and appears structurally normal. No aortic stenosis or regurgitation. Mild mitral regurgitation is present. Mild tricuspid regurgitation present. There is no evidence of pulmonary hypertension. The right v entricular systolic pressure, as measured by Doppler, is {RVSP}. There is no pulmonic regurgitation present. The aortic root size is normal. Echo free space represents a pericardial fat pad. CONCLUSIONS -------- 1. LV size, wall thickness and systolic function are normal, with an EF greater than 55%. 2. The left ventricular size is normal. 3. The right ventricle is normal in size. 4. The left atrial size is normal. 5. The right atrial size is normal. 6. The aortic valve is trileaflet, and appears structurally normal. No aortic stenosis or regurgitati on. 7. Mild mitral regurgitation is present. 8. Mild tricuspid regurgitation present. 9. There is no evidence of pulmonary hypertension. 10. The right ventricular systolic pressure, as measured by Doppler, is {RVSP}. 11. There is no pulmonic regurgitation present. 12. The aortic root size is normal. 13. Echo free space represents a pericardial fat pad. PSYCHOLOGIST RESEARCH ASSISTANT: Junie Lenz RDCS
[2018-08-27] MEDS: methylPREDNISolone SOD SUCCI 40 MG/ML 1 ML VIAL IV SCH (20:21)
[2018-08-28] MEDS: IPRATROPIUM-ALBUTEROL 3 ML NEB INHALATION SCH ×2 (07:09→12:51)
[2018-08-28] MEDS: BUDESONIDE 0.5 MG/2 ML NEBU INHALATION SCH (07:09)
[2018-08-28 08:01] VITALS: RESP 18
[2018-08-28] MEDS ORDERED: DOBUTamine DRIP for NUC MED 500 MG in DEXTROSE/WATER 1 250ML.BAG IV ONE (09:20)
--- NOTE | 2018-08-28 10:25 | P.PN ---
Subjective This is a pleasant 48-year-old male past medical history significant for chronic nicotine dependence. He denies history of coronary artery disease, diabetes mellitus or dyslipidemia. He states in the past he was told he has high blood pressure however he was unable to tolerate the medication due to causing dizziness so he stopped taking it. He is currently not on any anti- hypertensive medications. We have been asked to see him in consultation for chest pain. Echocardiogram obtained yesterday revealed preserved LV systolic function. He states he has been up and walking around with no further symptoms of chest discomfort. Blood pressure 133/90 herat rate 95 afebrile and maintaining oxygen saturation on room air. GENERAL: This is a 48-year-old male in no apparent distress at the time of my examination. HEENT: Head is atraumatic, normocephalic. Pupils are equal, round. Sclerae anicteric. Conjunctivae are clear. Mucous membranes of the mouth are moist. Neck is supple. There is no jugular venous distention. No carotid bruit is heard. LUNGS: Clear to auscultation no wheezes, rales or rhonchi. No chest wall tenderness is noted on palpation or with deep breathing. HEART: Regular rate and rhythm without murmurs, rubs or gallops. S1 and S2 heard. EXTREMITIES: No evidence of peripheral edema and no calf tenderness noted. ASSESSMENT Chest pain, atypical. Patient is very pleuritic and most likely related to musculoskeletal strain due to coughing. COPD Chronic nicotine dependence Chronic daily alcohol use PLAN Perform dobutamine stress echocardiogram to assess for stress induced ischemia. If stress test is normal he is stable from a cardiac perspective. Smoke cessation discussed and recommended. Follow up with Dr. Burnett in 2-3 weeks. Nurse Practitioner note has been reviewed, I agree with a documented findings and plan of care. Patient was seen and examined. Objective - Vital Signs Vital signs: Vital Signs Temp 97.8 F 08/28/18 07:20 Pulse 96 08/28/18 07:25 Resp 18 08/28/18 07:20 BP 133/90 08/28/18 07:20 Pulse Ox 99 08/28/18 07:20 Intake & Output 08/27/18 08/28/18 08/28/18 18:59 06:59 18:59 Intake Total 551.499 Balance 551.499 Intake: Intake, IV Titration 129.499 Amount Heparin Sod,Pork in 0.45% 129.499 NaCl 25,000 unit In 0.45 % NaCl 1 250ml.bag @ 12 UNITS/KG/HR 7.07 mls/hr IV .Q24H [facility] Rx#: [id number] Oral 422 Other: Voiding Method Toilet Toilet # Voids 2 - Labs CBC & Chem 7: 08/26/18 12:10 08/26/18 12:10 Labs: Microbiology - Last 24 Hours (Table) 08/26/18 12:30 Blood Culture - Preliminary Blood No Growth after 24 hours
[2018-08-28 11:35] VITALS: BP 126/81; TEMP 98
[2018-08-28] MEDS: methylPREDNISolone SOD SUCCI 40 MG/ML 1 ML VIAL IV SCH (12:27)
[2018-08-28] MEDS: NICOTINE 21MG/24HR PATCH TRANSDERM SCH (12:27)
[2018-08-28] MEDS: ASPIRIN 325 MG TAB PO SCH (12:27)
--- NOTE | 2018-08-28 12:44 | P.STRESS ---
- Stress Test Note Stress Test Results/Findings: Exam Performed: dobutamine stress echo Exam Date: 08/28/18 Reason for Exam: CHEST PAIN Height: 5 ft 6 in Weight: 58.967 kg Protocol: DOBUTAMINE Stage: na Duration of Exercise: na Resting Heart Rate: 75 Resting Blood Pressure: 115/69 Maximum Achieved Heart Rate: 149 Maximum Achieved Blood Pressure: 154/65 85% PMHR: 145 100% PMHR: 171 METS: NA Technologist Comment: Stress Test Results/Findings: This is a 48-year-old gentleman was admitted to the hospital with chest pain. Patient has history of hypertension and also smoking and COPD. Stress data Baseline EKG showed sinus rhythm with normal SC interval and QRS duration. Blood pressure at rest is 115/69, pulse rate of 75. A standard dose of dobutamine was initiated at 10 mics and was titrated to 30 mics, achieving a maximum heart rate of 149 with a blood pressure of 148/69. Patient did not express any chest pain. This then EKG showed sinus rhythm. EKGs taken during and after the dobutamine infusion did not reveal any changes of ischemia. Echo data Echo data: Baseline echo images show normal wall motion and thickening. Exercise echo images showed augmentation of wall motion and thickening in all the segments. Final impression: #1. Negative dobutamine stress test #2. Negative dobutamine stress echo
[2018-08-28 12:55] VITALS: PULSE 84
--- NOTE | 2018-08-28 14:34 | P.PN ---
Subjective Progress Note Date: 08/28/18 Principal diagnosis: Acute COPD exacerbation, chest pain, atypical in nature, history of stents extensive smoking and nicotine use alcohol consumption, 08/28/2018, patient seen eval examined during the rounds clinically has been doing slightly better cough congestion shortness breath is improved, patient is status post stress test which is negative, patient feels better after breathing treatments and IV steroids prescription has been provided for tapering steroids as well as antibiotics likely will be discharged later on today, patient has been consult educated about smoking cessation and alcohol consumption 48-year-old male active history of smoking and nicotine use extremely hard of hearing patient presented into the hospital with problems associated with one- week history of chest pain predominantly on the right side [place] however lately shifting towards the left side came into the hospital for further evaluation has been evaluated by cardiovascular services, patient had mildly elevated d-dimer however computed tomography scan of the chest and have been negative for pulmonary embolism patient the is been scheduled for a stress test tomorrow, patient does have ongoing history of intermittent dry cough but denies any sputum production patient to denies any nocturnal awakening does have cough mostly in the morning, denies any seizure-like activity loss of consciousness), denies any bowel or bladder problem, patient does carry risk factors for coronary artery disease extensive smoking however denies any problems associated with prior episode diabetes or dyslipidemia he does have a issues related to blood pressure however Objective - Vital Signs Vital signs: Vital Signs Temp 98.0 F 08/28/18 11:35 Pulse 84 08/28/18 13:03 Resp 18 08/28/18 11:35 BP 126/81 08/28/18 11:35 Pulse Ox 97 08/28/18 11:35 Intake & Output 08/27/18 08/28/18 08/28/18 18:59 06:59 18:59 Intake Total 551.499 200 Balance 551.499 200 Weight 58.967 kg Intake: Intake, IV Titration 129.499 Amount Heparin Sod,Pork in 0.45% 129.499 NaCl 25,000 unit In 0.45 % NaCl 1 250ml.bag @ 12 UNITS/KG/HR 7.07 mls/hr IV .Q24H [facility] Rx#: [id number] Oral 422 200 Other: Voiding Method Toilet Toilet # Voids 2 - Exam GENERAL: This is a 48-year-old male in no apparent distress at the time of my examination. HEENT: Head is atraumatic, normocephalic. Pupils are equal, round. Sclerae anicteric. Conjunctivae are clear. Mucous membranes of the mouth are moist. Neck is supple. There is no jugular venous distention. No carotid bruit is heard. LUNGS: Clear to auscultation no wheezes, rales or rhonchi. No chest wall tenderness is noted on palpation or with deep breathing. HEART: Regular rate and rhythm without murmurs, rubs or gallops. S1 and S2 heard. ABDOMEN: Soft, nontender. Bowel sounds are heard. No organomegaly noted. EXTREMITIES: No evidence of peripheral edema and no calf tenderness noted. VASCULAR: Radial and dorsalis pedis pulses palpated, no evidence of clubbing. NEUROLOGIC: Patient is awake, alert and oriented x3. - Labs CBC & Chem 7: 08/26/18 12:10 08/26/18 12:10 Labs: Microbiology - Last 24 Hours (Table) 08/26/18 12:30 Blood Culture - Preliminary Blood No Growth after 24 hours Assessment and Plan Assessment: Chest pain possible coronary artery disease cannot be excluded with rest factors smoking Extensive smoking and nicotine use possible baseline COPD cannot be excluded Suspect component of COPD exacerbation will put patient on IV steroids and breathing treatments Plan: Care plan discussed with cardiovascular services likely will be discharged later on today his prescription for oral tapering steroids as well as antibiotics have been provided patient has been also counseled and educated about alcohol and smoking cessation Time with Patient: Greater than 30
--- NOTE | 2018-08-28 14:44 | P.DS ---
Providers Date of admission: 08/26/18 16:28 Expected date of discharge: 08/28/18 Attending physician: Trino Ely Consults: 08/26/18 16:23 Consult Physician Routine Consulting Provider: Memo Carolina Consult Reason/Comments: Chest pain, cough and fever Do you want consulting provider notified?: Yes 08/27/18 10:48 Consult Physician Routine Consulting Provider: Marjan Burnett Consult Reason/Comments: chest pain Do you want consulting provider notified?: Yes Primary care physician: [facility] Course: Acute COPD exacerbation, chest pain, atypical in nature, history of stents extensive smoking and nicotine use alcohol consumption, 08/28/2018, patient seen eval examined during the rounds clinically has been doing slightly better cough congestion shortness breath is improved, patient is status post stress test which is negative, patient feels better after breathing treatments and IV steroids prescription has been provided for tapering steroids as well as antibiotics likely will be discharged later on today, patient has been consult educated about smoking cessation and alcohol consumption 48-year-old male active history of smoking and nicotine use extremely hard of hearing patient presented into the hospital with problems associated with one- week history of chest pain predominantly on the right side major in Center however lately shifting towards the left side came into the hospital for further evaluation has been evaluated by cardiovascular services, patient had mildly elevated d-dimer however computed tomography scan of the chest and have been negative for pulmonary embolism patient the is been scheduled for a stress test tomorrow, patient does have ongoing history of intermittent dry cough but denies any sputum production patient to denies any nocturnal awakening does have cough mostly in the morning, denies any seizure-like activity loss of consciousness), denies any bowel or bladder problem, patient does carry risk factors for coronary artery disease extensive smoking however denies any problems associated with prior episode diabetes or dyslipidemia he does have a issues related to blood pressure however Objective - Vital Signs Vital signs: Vital Signs Temp 98.0 F 08/28/18 11:35 Pulse 84 08/28/18 13:03 Resp 18 08/28/18 11:35 BP 126/81 08/28/18 11:35 Pulse Ox 97 08/28/18 11:35 Intake & Output 08/27/18 08/28/18 08/28/18 18:59 06:59 18:59 Intake Total 551.499 200 Balance 551.499 200 Weight 58.967 kg Intake: Intake, IV Titration 129.499 Amount Heparin Sod,Pork in 0.45% 129.499 NaCl 25,000 unit In 0.45 % NaCl 1 250ml.bag @ 12 UNITS/KG/HR 7.07 mls/hr IV .Q24H RACHNA Rx#: [id number] Oral 422 200 Other: Voiding Method Toilet Toilet # Voids 2 - Exam GENERAL: This is a 48-year-old male in no apparent distress at the time of my examination. HEENT: Head is atraumatic, normocephalic. Pupils are equal, round. Sclerae anicteric. Conjunctivae are clear. Mucous membranes of the mouth are moist. Neck is supple. There is no jugular venous distention. No carotid bruit is heard. LUNGS: Clear to auscultation no wheezes, rales or rhonchi. No chest wall tenderness is noted on palpation or with deep breathing. HEART: Regular rate and rhythm without murmurs, rubs or gallops. S1 and S2 heard. ABDOMEN: Soft, nontender. Bowel sounds are heard. No organomegaly noted. EXTREMITIES: No evidence of peripheral edema and no calf tenderness noted. VASCULAR: Radial and dorsalis pedis pulses palpated, no evidence of clubbing. NEUROLOGIC: Patient is awake, alert and oriented x3. - Labs CBC & Chem 7: 08/26/18 12:10 08/26/18 12:10 Labs: Microbiology - Last 24 Hours (Table) 08/26/18 12:30 Blood Culture - Preliminary Blood No Growth after 24 hours Assessment and Plan Assessment: Chest pain possible coronary artery disease cannot be excluded with rest factors smoking Extensive smoking and nicotine use possible baseline COPD cannot be excluded Suspect component of COPD exacerbation will put patient on IV steroids and breathing treatments Plan: Care plan discussed with cardiovascular services likely will be discharged later on today his prescription for oral tapering steroids as well as antibiotics have been provided patient has been also counseled and educated about alcohol and smoking cessation Pertinent Studies: Stress test Patient Condition at Discharge: Good Plan - Discharge Summary New Discharge Prescriptions: No Action Ibuprofen [Motrin Ib] 800 mg PO Q6H PRN PRN Reason: Pain Discharge Medication List Ibuprofen [Motrin Ib] 800 mg PO Q6H PRN 08/26/18 [History] Follow up Appointment(s)/Referral(s): Trino Ely MD [Primary Care Provider] - 1-2 days Memo Carolina MD [STAFF PHYSICIAN] - 1 Week
--- NOTE | 2018-09-03 16:29 | ECHOS ---
Stress Test Results/Findings: Exam Performed: dobutamine stress echo Exam Date: 08/28/18 Reason for Exam: CHEST PAIN Height: 5 ft 6 in Weight: 58.967 kg Protocol: DOBUTAMINE Stage: na Duration of Exercise: na Resting Heart Rate: 75 Resting Blood Pressure: 115/69 Maximum Achieved Heart Rate: 149 Maximum Achieved Blood Pressure: 154/65 85% PMHR: 145 100% PMHR: 171 METS: NA Technologist Comment: Stress Test Results/Findings: This is a 48-year-old gentleman was admitted to the hospital with chest pain. Patient has history of hypertension and also smoking and COPD. Stress data Baseline EKG showed sinus rhythm with normal CT interval and QRS duration. Blood pressure at rest is 115/69, pulse rate of 75. A standard dose of dobutamine was initiated at 10 mics and was titrated to 30 mics, achieving a maximum heart rate of 149 with a blood pressure of 148/69. Patient did not express any chest pain. This then EKG showed sinus rhythm. EKGs taken during and after the dobutamine infusion did not reveal any changes of ischemia. Echo data Echo data: Baseline echo images show normal wall motion and thickening. Exercise echo images showed augmentation of wall motion and thickening in all the segments. Final impression: #1. Negative dobutamine stress test #2. Negative dobutamine stress echo MTDD
== END 2018-08-28 15:15 | disposition home or self-care (01) ==
LOC: EC 11:41 → 1SOBS 16:28
PROVIDERS: ADMIT Family Medicine; ATTEND Family Medicine
DX: J44.1 Chronic obstructive pulmonary disease with (acute) exacerbation (principal); R07.89 Other chest pain; R79.1 Abnormal coagulation profile; K21.9 Gastro-esophageal reflux disease without esophagitis; Z72.89 Other problems related to lifestyle; F17.210 Nicotine dependence, cigarettes, uncomplicated; H91.90 Unspecified hearing loss, unspecified ear; Z71.41 Alcohol abuse counseling and surveillance of alcoholic; Z71.6 Tobacco abuse counseling; Z97.4 Presence of external hearing-aid; Z83.3 Family history of diabetes mellitus
CPT/HCPCS: 96366 ×3; 96375; 96376; 96365; 99285; 36415; 94640 ×4; 94760; 93005; 93306; 93351; 85379; 83880; 80061; 80053; 82550 ×2; 82553 ×2; 83735; 84484 ×2; 85025; 85610; 85730 ×2; 87040; 71046; 71275; G0378 ×3; S4990 ×2; J1250; J1644 ×2; J2920 ×2; Q9967

== ENCOUNTER 2018-12-16 13:38 | Emergency (ER) | payer BC, OTHER ==
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
--- NOTE | 2018-12-16 14:43 | XR ---
EXAMINATION TYPE: XR foot complete RT DATE OF EXAM: 12/16/2018 COMPARISON: 09/19/2016 HISTORY: Crush injury TECHNIQUE: Three-view right foot FINDINGS: No acute fractures are evident. Joint spaces are preserved. Soft tissues are normal. Mild h allux valgus deformity is present. IMPRESSION: 1. Normal three-view right foot
[2018-12-16 16:17] VITALS: BP 117/85; PULSE 76; RESP 20; TEMP 97.3
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
== END 2018-12-16 16:25 | disposition home or self-care (01) ==
LOC: EC 13:38
DX: S93.601A Unspecified sprain of right foot, initial encounter (principal); F17.200 Nicotine dependence, unspecified, uncomplicated; Z98.890 Other specified postprocedural states; W23.0XXA Caught, crushed, jammed, or pinched between moving objects, initial encounter; Y92.69 Other specified industrial and construction area as the place of occurrence of the external cause; Y99.0 Civilian activity done for income or pay
CPT/HCPCS: 29515; 99284

== ENCOUNTER 2019-02-03 21:38 | Emergency (ER) | payer OTHER ==
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
--- NOTE | 2019-02-03 23:12 | XR ---
EXAM: XR Left Wrist Complete, 3 or More Views CLINICAL HISTORY: ITS.REASON XR Reason: Pain TECHNIQUE: Frontal, lateral and oblique views of the left wrist. COMPARISON: No relevant prior studies available. FINDINGS: Bones/joints: Unremarkable. No acute fracture. No dislocation. Soft tissues: Unremarkable. No radiopaque foreign body. IMPRESSION: Normal left wrist x-rays.
--- NOTE | 2019-02-03 23:19 | XR ---
EXAM: XR Left Hand Complete, 3 or More Views CLINICAL HISTORY: ITS.REASON XR Reason: Pain TECHNIQUE: Frontal, lateral and oblique views of the left hand. COMPARISON: No relevant prior studies available. FINDINGS: Bones/joints: Unremarkable. No acute fracture. No dislocation. Soft tissues: Unremarkable. No radiopaque foreign body. IMPRESSION: Normal left hand x-rays.
--- NOTE | 2019-02-03 23:32 | XR ---
EXAM: XR Chest, 2 Views CLINICAL HISTORY: ITS.REASON XR Reason: Pain TECHNIQUE: Frontal and lateral views of the chest. COMPARISON: 08/26/18 chest radiography FINDINGS: Lungs: Unremarkable. No consolidation. Pleural space: Left pleural-parenchymal scarring. No pneumothorax. Heart: Unremarkable. No cardiomegaly. Mediastinum: Unremarkable. Bones/joints: Unremarkable. IMPRESSION: No acute cardiopulmonary disease.
[2019-02-03] MEDS ORDERED: ACET/COD 300 MG/30 MG STARTER PACK 6 TAB BTL PO STA (23:51)
[2019-02-04 00:01] VITALS: BP 121/80; PULSE 75; RESP 18; TEMP 97.5
== END 2019-02-04 00:05 | disposition home or self-care (01) ==
LOC: EC 21:38
DX: S52.502A Unspecified fracture of the lower end of left radius, initial encounter for closed fracture (principal); F17.200 Nicotine dependence, unspecified, uncomplicated; W11.XXXA Fall on and from ladder, initial encounter
CPT/HCPCS: 29125; 71046; 82075; 99283

== ENCOUNTER 2019-05-13 21:30 | Emergency (ER) | payer OTHER ==
[2019-05-13 21:54] VITALS: BP 116/74; PULSE 77; RESP 16; TEMP 98.9
[2019-05-13] MEDS ORDERED: LIDOCAINE 1% INJ 10MG/ML (20 ML MDV) SQ ONE (22:21)
[2019-05-13] MEDS ORDERED: SULFAMETH-TMP DS STARTER PACK 2 TAB BTL PO STA (23:21)
--- NOTE | 2019-05-13 23:24 | ED ---
General Adult HPI - General Chief complaint: Skin/Abscess/Foreign Body Stated complaint: Swollen finger, needs to be drained Time Seen by Provider: 05/13/19 21:40 Source: patient, RN notes reviewed Mode of arrival: ambulatory Limitations: no limitations - History of Present Illness Initial comments: 49-year-old male presents to the emergency department for swelling of the left third digit. Patient states this has been ongoing intermittently for years. States he has been seen here several times to have this drained. States it started swelling again over a month ago. Patient states he was told to follow- up with primary care because they may need to remove a capsule but he has not done so. Denies fevers or chills. Denies streaking redness up the finger. Denies difficulty bending his finger.Patient has no other complaints at this time including shortness of breath, chest pain, abdominal pain, nausea or vomiting, headache, or visual changes. - Related Data Home Medications Medication Instructions Recorded Confirmed Ibuprofen [Motrin Ib] 800 mg PO Q6H PRN 08/26/18 08/26/18 Previous Rx's Medication Instructions Recorded Sulfamethoxazole/Trimethoprim 1 each PO BID 7 Days #14 tablet 05/13/19 [Bactrim DS 800-160 mg] Allergies Allergy/AdvReac Type Severity Reaction Status Date / Time No Known Allergies Allergy Verified 05/13/19 21:54 Review of Systems ROS Statement: Those systems with pertinent positive or pertinent negative responses have been documented in the HPI. ROS Other: All systems not noted in ROS Statement are negative. Past Medical History Past Medical History: COPD, GERD/Reflux Additional Past Medical History / Comment(s): traumatic tear rt ear(seen in ER for injury on 03-15-18 stated. " was hit on side of head with steel pipe from tearing down a trailer")stated "was told by had a concussion",heart murmur,left ear-[place]- hearing aid,rt ear [place], History of Any Multi-Drug Resistant Organisms: None Reported Past Surgical History: Hernia Repair Additional Past Surgical History / Comment(s): MULTIPLE EAR SURGERIES, Past Anesthesia/Blood Transfusion Reactions: No Reported Reaction Additional Past Anesthesia/Blood Transfusion Reaction / Comment(s): no hx blood transfusion Past Psychological History: No Psychological Hx Reported Smoking Status: Current every day smoker Past Alcohol Use History: Daily Past Drug Use History: None Reported - Past Family History Son(s) Family Medical History: Diabetes Mellitus General Exam Limitations: no limitations General appearance: alert, in no apparent distress Head exam: Present: atraumatic, normocephalic, normal inspection Eye exam: Present: normal appearance, PERRL, EOMI. Absent: scleral icterus, conjunctival injection, periorbital swelling ENT exam: Present: normal exam, mucous membranes moist Neck exam: Present: normal inspection, full ROM. Absent: tenderness, meningis mus, lymphadenopathy Respiratory exam: Present: normal lung sounds bilaterally. Absent: respiratory distress, wheezes, rales, rhonchi, stridor Cardiovascular Exam: Present: regular rate, normal rhythm, normal heart sounds. Absent: systolic murmur, diastolic murmur, rubs, gallop, clicks Extremities exam: Present: full ROM (Full range motion of the left third digit.), tenderness (Tenderness noted to the swollen area of the left third digit.), normal capillary refill (Capillary refill less than for no fingers of the left upper extremity.), other (Patient has edema noted to the ulnar aspect of the left third digit middle phalanx that is fluctuant and likely sebaceous cyst abscess.) Course Vital Signs 05/13/19 05/13/19 21:51 23:26 Temperature 98.9 F 98.9 F Pulse Rate 77 77 Respiratory 16 16 Rate Blood Pressure 116/74 116/74 O2 Sat by Pulse 98 98 Oximetry Procedures - Incision & Drainage Consent Obtained: verbal consent Size (cm): 1 Anesthetic Used: lidocaine 1% Amount (mLs): 4 I&D Cleaning Method: Chloroprep Sterile Field Used?: Yes I&D Drainage Obtained: Pus Medical Decision Making - Medical Decision Making 49-year-old male presents to the emergency department for swelling of the left third digit. Patient has edema noted along the ulnar aspect of the middle phalanx of the left third digit. This is fluctuant in nature. Nonerythematous. Likely an infected sebaceous cyst. Patient refuses to remove rings from left fourth digit and is aware that if swollen this could be due to loss of circulation and loss of finger. I&D was performed and. Material was expelled. Patient was started on Bactrim. Patient recommended to return if he has any worsening symptoms or develops pain with flexion of the finger. Recommended he follow up with primary care as he will likely need this cyst removed or will likely be recurrent. Disposition Clinical Impression: Abscess Disposition: HOME SELF-CARE Condition: Good Instructions (If sedation given, give patient instructions): Abscess Incision and Drainage (ED), Abscess (ED) Additional Instructions: Please do warm soapy soaks. Take antibiotics as directed. Return to the emergency department if you have any worsening symptoms Prescriptions: Sulfamethoxazole/Trimethoprim [Bactrim DS 800-160 mg] 1 each PO BID 7 Days #14 tablet Is patient prescribed a controlled substance at d/c from ED?: No Referrals: Trino Ely MD [Primary Care Provider] - 1-2 days Time of Disposition: 23:22
== END 2019-05-13 23:27 | disposition home or self-care (01) ==
LOC: EC 21:30
DX: L02.512 Cutaneous abscess of left hand (principal); H91.93 Unspecified hearing loss, bilateral; F17.200 Nicotine dependence, unspecified, uncomplicated; Z97.4 Presence of external hearing-aid
CPT/HCPCS: 99283; 10060; J2001

== ENCOUNTER 2019-07-05 05:19 | Observation (INO) | payer OTHER ==
[2019-07-05] MEDS ORDERED: IPRATROPIUM-ALBUTEROL 3 ML NEB INHALATION STA (05:49)
[2019-07-05] MEDS ORDERED: predniSONE 20 MG TAB PO STA (05:49)
[2019-07-05] MEDS ORDERED: ALBUTEROL NEBULIZED 2.5 MG/3 ML INHALATION STA (05:49)
--- NOTE | 2019-07-05 05:51 | ED ---
SOB HPI - General Chief Complaint: Shortness of Breath Stated Complaint: SOB Time Seen by Provider: 07/05/19 05:43 Source: patient Mode of arrival: ambulatory Limitations: no limitations - History of Present Illness Initial Comments: This patient is a 49-year-old man with history of COPD who presents with complaint that he feels more short of breath than his usual going on for about the past day. Patient also has a cough, stating that it is a chronic cough but is having a little more yellow sputum and then usually. Patient denies chest pain. No change in urination or bowel movements. In relation to bowel movements, patient states that he does occasionally have blood with bowel movements that he thinks may be related to hemorrhoids. This issue has been going on intermittently for approximately 2 years. No dark tarry stools. No abdominal pain. MD Complaint: shortness of breath, cough Onset/Timin -: days(s) Consistency: constant Improves With: nothing Worsens With: nothing Known History Of: COPD Associated Symptoms: cough, sputum production Treatments Prior to Arrival: bronchodilator - Related Data Home Oxygen Therapy: No Allergies Allergy/AdvReac Type Severity Reaction Status Date / Time No Known Allergies Allergy Verified 05/13/19 21:54 Review of Systems ROS Statement: Those systems with pertinent positive or pertinent negative responses have been documented in the HPI. ROS Other: All systems not noted in ROS Statement are negative. Constitutional: Denies: fever, chills Respiratory: Reports: as per HPI, cough, dyspnea, wheezes. Denies: hemoptysis Cardiovascular: Reports: dyspnea on exertion. Denies: chest pain, palpitations, orthopnea, edema, syncope Gastrointestinal: Reports: as per HPI. Denies: abdominal pain, nausea, vomiting, diarrhea, constipation, hematemesis, melena, hematochezia Genitourinary: Denies: dysuria, hematuria Musculoskeletal: Denies: back pain Skin: Denies: rash Neurological: Denies: headache, weakness, numbness Past Medical History Past Medical History: COPD, GERD/Reflux Additional Past Medical History / Comment(s): traumatic tear rt ear(seen in ER for injury on 03-15-18 stated. " was hit on side of head with steel pipe from tearing down a trailer")stated "was told by Dr had a concussion",heart murmur,left ear[place]- hearing aid,rt ear [place], History of Any Multi-Drug Resistant Organisms: None Reported Past Surgical History: Hernia Repair Additional Past Surgical History / Comment(s): MULTIPLE EAR SURGERIES, Past Anesthesia/Blood Transfusion Reactions: No Reported Reaction Additional Past Anesthesia/Blood Transfusion Reaction / Comment(s): no hx blood transfusion Past Psychological History: No Psychological Hx Reported Smoking Status: Current every day smoker Past Alcohol Use History: Daily Past Drug Use History: Marijuana - Past Family History Son(s) Family Medical History: Diabetes Mellitus General Exam Limitations: no limitations General appearance: alert, in no apparent distress Head exam: Present: atraumatic, normocephalic Eye exam: Present: normal appearance. Absent: scleral icterus, conjunctival injection ENT exam: Present: normal oropharynx Neck exam: Present: normal inspection Respiratory exam: Present: wheezes. Absent: respiratory distress, rales, rhonc hi, stridor, accessory muscle use, decreased breath sounds, prolonged expiratory Cardiovascular Exam: Present: regular rate, normal rhythm, normal heart sounds. Absent: systolic murmur, diastolic murmur, rubs, gallop GI/Abdominal exam: Present: soft. Absent: distended, tenderness, guarding, rebound, rigid, mass Extremities exam: Present: normal inspection, normal capillary refill. Absent: pedal edema, calf tenderness Back exam: Present: normal inspection. Absent: CVA tenderness (R), CVA tend erness (L) Neurological exam: Present: alert Skin exam: Present: warm, dry, intact, normal color. Absent: rash Course Vital Signs 07/05/19 07/05/19 07/05/19 05:24 06:06 06:20 Temperature 97.7 F Pulse Rate 86 81 82 Respiratory 20 Rate O2 Sat by Pulse 97 Oximetry Medical Decision Making - Lab Data Result diagrams: 07/05/19 06:08 07/05/19 06:08 Lab Results 07/05/19 07/05/19 07/05/19 Range/Units 06:08 06:08 06:08 WBC 7.5 (3.8-10.6) k/uL RBC 4.49 (4.30-5.90) m/uL Hgb 14.7 (13.0-17.5) gm/dL Hct 43.7 (39.0-53.0) % MCV 97.4 (80.0-100.0) fL MCH 32.8 (25.0-35.0) pg MCHC 33.7 (31.0-37.0) g/dL RDW 13.1 (11.5-15.5) % Plt Count 238 (150-450) k/uL Neutrophils % (Manual) 48 % Lymphocytes % (Manual) 25 % Monocytes % (Manual) 20 % Eosinophils % (Manual) 7 % Neutrophils # (Manual) 3.60 (1.3-7.7) k/uL Lymphocytes # (Manual) 1.88 (1.0-4.8) k/uL Monocytes # (Manual) 1.50 H (0-1.0) k/uL Eosinophils # (Manual) 0.53 (0-0.7) k/uL Nucleated RBCs 0 (0-0) /100 WBC Manual Slide Review Performed PT 9.4 (9.0-12.0) sec INR 0.9 (<1.2) APTT 23.4 (22.0-30.0) sec Sodium 145 (137-145) mmol/L Potassium 4.4 (3.5-5.1) mmol/L Chloride 111 H (98-107) mmol/L Carbon Dioxide 23 (22-30) mmol/L Anion Gap 11 mmol/L BUN 9 (9-20) mg/dL Creatinine 0.51 L (0.66-1.25) mg/dL Est GFR (CKD-EPI)AfAm >90 (>60 ml/min/1.73 sqM) Est GFR (CKD-EPI)NonAf >90 (>60 ml/min/1.73 sqM) Glucose 112 H (74-99) mg/dL Calcium 9.3 (8.4-10.2) mg/dL Total Bilirubin 0.2 (0.2-1.3) mg/dL AST 26 (17-59) U/L ALT 21 (21-72) U/L Alkaline Phosphatase 117 (38-126) U/L Troponin I (0.000-0.034) ng/mL Total Protein 7.8 (6.3-8.2) g/dL Albumin 4.2 (3.5-5.0) g/dL 07/05/19 Range/Units 06:08 WBC (3.8-10.6) k/uL RBC (4.30-5.90) m/uL Hgb (13.0-17.5) gm/dL Hct (39.0-53.0) % MCV (80.0-100.0) fL MCH (25.0-35.0) pg MCHC (31.0-37.0) g/dL RDW (11.5-15.5) % Plt Count (150-450) k/uL Neutrophils % (Manual) % Lymphocytes % (Manual) % Monocytes % (Manual) % Eosinophils % (Manual) % Neutrophils # (Manual) (1.3-7.7) k/uL Lymphocytes # (Manual) (1.0-4.8) k/uL Monocytes # (Manual) (0-1.0) k/uL Eosinophils # (Manual) (0-0.7) k/uL Nucleated RBCs (0-0) /100 WBC Manual Slide Review PT (9.0-12.0) sec INR (<1.2) APTT (22.0-30.0) sec Sodium (137-145) mmol/L Potassium (3.5-5.1) mmol/L Chloride (98-107) mmol/L Carbon Dioxide (22-30) mmol/L Anion Gap mmol/L BUN (9-20) mg/dL Creatinine (0.66-1.25) mg/dL Est GFR (CKD-EPI)AfAm (>60 ml/min/1.73 sqM) Est GFR (CKD-EPI)NonAf (>60 ml/min/1.73 sqM) Glucose (74-99) mg/dL Calcium (8.4-10.2) mg/dL Total Bilirubin (0.2-1.3) mg/dL AST (17-59) U/L ALT (21-72) U/L Alkaline Phosphatase (38-126) U/L Troponin I <0.012 (0.000-0.034) ng/mL Total Protein (6.3-8.2) g/dL Albumin (3.5-5.0) g/dL - EKG Data -: EKG Interpreted by Ct EKG shows normal: sinus rhythm, axis (Normal), intervals (ER interval 112 ms, QTC 446 ms, both normal. QRS duration 124 ms, prolonged consistent with the bundle-branch block.), QRS complexes (Right bundle-branch block.), ST-T waves ( Normal) Rate: normal (Rate 82 bpm) Disposition Clinical Impression: COPD exacerbation Disposition: ADMITTED IP TO THIS HOSP Condition: Good Referrals: Trino Ely MD [Primary Care Provider] - 1-2 days
[2019-07-05 06:26] LABS: HCT 43.7 % (39.0-53.0); HGB 14.7 gm/dL (13.0-17.5); MCH 32.8 pg (25.0-35.0); MCHC 33.7 g/dL (31.0-37.0); MCV 97.4 fL (80.0-100.0); Mean Platelet Volume 5.8; Platelet Count 238 k/uL (150-450); RBC 4.49 m/uL (4.30-5.90); RDW 13.1 % (11.5-15.5); WBC 7.5 k/uL (3.8-10.6)
[2019-07-05 06:32] LABS: ALT 21 U/L (21-72); AST 26 U/L (17-59); African American GFR (CKD) >90 (>60 ml/min/1.73 sqM); Albumin 4.2 g/dL (3.5-5.0); Alkaline Phosphatase 117 U/L (38-126); Anion Gap 11 mmol/L; Blood Urea Nitrogen 9 mg/dL (9-20); Calcium 9.3 mg/dL (8.4-10.2); Carbon Dioxide 23 mmol/L (22-30); Chloride 111 mmol/L (98-107); Glucose 112 mg/dL (74-99); Non-African American GFR(CKD) >90 (>60 ml/min/1.73 sqM); Potassium 4.4 mmol/L (3.5-5.1); Sodium 145 mmol/L (137-145); Total Bilirubin 0.2 mg/dL (0.2-1.3); Total Protein 7.8 g/dL (6.3-8.2)
[2019-07-05 06:39] LABS: INR 0.9 (<1.2); Partial Thromboplastin Time 23.4 sec (22.0-30.0); Prothrombin Time 9.4 sec (9.0-12.0)
[2019-07-05 06:48] LABS: Eosinophils # (M) 0.53 k/uL (0-0.7); Lymphocytes # (M) 1.88 k/uL (1.0-4.8); Neutrophils % (M) 48 %; Nucleated Red Blood Cells 0 /100 WBC (0-0); Total Cells Counted 100
--- NOTE | 2019-07-05 06:54 | XR ---
EXAMINATION TYPE: XR chest 2V DATE OF EXAM: 07/05/2019 COMPARISON: NONE HISTORY: Difficulty breathing TECHNIQUE: Frontal and lateral views of the chest are obtained. FINDINGS: Heart is normal. Lungs are clear of consolidation. There is slight blunting left costophre carlos a angle. There are no hilar masses. Bony thorax is intact. IMPRESSION: Minimal pleural diaphragmatic scarring left lung base. No change. Normal heart.
[2019-07-05] MEDS ORDERED: ALBUTEROL NEBULIZED 2.5 MG/3 ML INHALATION PRN (07:17)
[2019-07-05] MEDS: AZITHROMYCIN 500 MG TAB PO SCH (09:23)
[2019-07-05] MEDS: IPRATROPIUM-ALBUTEROL 3 ML NEB INHALATION SCH ×3 (11:02→20:09)
[2019-07-05] MEDS: BUDESONIDE 0.5 MG/2 ML NEBU INHALATION SCH ×2 (11:02→20:12)
--- NOTE | 2019-07-05 13:25 | P.GSCN ---
History of Present Illness Consult date: 07/05/19 Reason for Consult: rectal bleeding Requesting physician: Irena Vyas History of present illness: CHIEF COMPLAINT: Rectal bleeding HISTORY OF PRESENT ILLNESS: 49-year-old male who was admitted to the hospital secondary to COPD exacerbation. General surgery was consulted to evaluate rectal bleeding. Patient states he has been having episodes of rectal bleeding when he has a bowel movement approximately twice a month. He states this has been going on for the past few years. He reports having a colonoscopy approximately 5 years ago and believes it was normal to his knowledge. He denies abdominal pain. Denies nausea or vomiting. PAST MEDICAL HISTORY: See list. PAST SURGICAL HISTORY: See list. SOCIAL HISTORY: No illicit drug use. REVIEW OF SYSTEMS: CONSTITUTIONAL: Denies fever or chills. HEENT: Denies blurred vision, vision changes, or eye pain. Denies hemoptysis CARDIOVASCULAR: Denies chest pain or pressure. RESPIRATORY: No shortness of breath. GASTROINTESTINAL: Refer to HPI for pertinent findings HEMATOLOGIC: Denies bleeding disorders. GENITOURINARY: Denies any blood in urine. SKIN: Denies pruitis. Denies rash. PHYSICAL EXAM: VITAL SIGNS: Reviewed. GENERAL: Well-developed in no acute distress. HEENT: No sclera icterus. Extraocular movements grossly intact. Moist buccal mucosa. Head is atraumatic, normocephalic. ABDOMEN: Soft. Nondistended. Nontender. NEUROLOGIC: Alert and oriented. Cranial nerves II through XII grossly intact. LABORATORY DATA: WBC 7.5. Hemoglobin 14.7. ASSESSMENT: 1. Intermittent rectal bleeding 2 years PLAN: No need for inpatient endoscopy at this time. Continue to monitor hemoglobin Patient may follow up outpatient with Dr. Centeno post discharge to schedule outpatient colonoscopy Nurse practitioner note has been reviewed by physician. Signing provider agrees with the documented findings, assessment, and plan of care. Past Medical History Past Medical History: Chest Pain / Angina, COPD, GERD/Reflux, Hearing Disorder / Deafness, Hypertension Additional Past Medical History / Comment(s): Heart murmur, frequent diarrhea, daily gerd, bilateral [place]-wears L hearing aide. History of Any Multi-Drug Resistant Organisms: None Reported Past Surgical History: Ear Surgery, Hernia Repair Additional Past Surgical History / Comment(s): Isac fundloplication, EGD, colonoscopy, multiple bilateral ear surgeries/tubes and eardrum reconstructions. Past Anesthesia/Blood Transfusion Reactions: No Reported Reaction Additional Past Anesthesia/Blood Transfusion Reaction / Comm: no hx blood transfusion Smoking Status: Current every day smoker - Past Family History Son(s) Family Medical History: Diabetes Mellitus Father Family Medical History: COPD, Pneumonia Medications and Allergies Home Medications Medication Instructions Recorded Confirmed Type Ibuprofen [Advil] 800 mg PO Q6HR PRN 07/05/19 07/05/19 History Allergies Allergy/AdvReac Type Severity Reaction Status Date / Time No Known Allergies Allergy Verified 07/05/19 07:34 Surgical - Exam Vital Signs Temp Pulse Resp Pulse Ox 97.7 F 86 20 97 07/05/19 05:24 07/05/19 05:24 07/05/19 05:24 07/05/19 05:24 Results - Labs 07/05/19 06:08 07/05/19 06:08 Abnormal Lab Results - Last 24 Hours (Table) 07/05/19 07/05/19 Range/Units 06:08 06:08 Monocytes # (Manual) 1.50 H (0-1.0) k/uL Chloride 111 H (98-107) mmol/L Creatinine 0.51 L (0.66-1.25) mg/dL Glucose 112 H (74-99) mg/dL Diabetes panel 07/05/19 Range/Units 06:08 Sodium 145 (137-145) mmol/L Potassium 4.4 (3.5-5.1) mmol/L Chloride 111 H (98-107) mmol/L Carbon Dioxide 23 (22-30) mmol/L BUN 9 (9-20) mg/dL Creatinine 0.51 L (0.66-1.25) mg/dL Glucose 112 H (74-99) mg/dL Calcium 9.3 (8.4-10.2) mg/dL AST 26 (17-59) U/L ALT 21 (21-72) U/L Alkaline Phosphatase 117 (38-126) U/L Total Protein 7.8 (6.3-8.2) g/dL Albumin 4.2 (3.5-5.0) g/dL Calcium panel 07/05/19 Range/Units 06:08 Calcium 9.3 (8.4-10.2) mg/dL Albumin 4.2 (3.5-5.0) g/dL Pituitary panel 07/05/19 Range/Units 06:08 Sodium 145 (137-145) mmol/L Potassium 4.4 (3.5-5.1) mmol/L Chloride 111 H (98-107) mmol/L Carbon Dioxide 23 (22-30) mmol/L BUN 9 (9-20) mg/dL Creatinine 0.51 L (0.66-1.25) mg/dL Glucose 112 H (74-99) mg/dL Calcium 9.3 (8.4-10.2) mg/dL Adrenal panel 07/05/19 Range/Units 06:08 Sodium 145 (137-145) mmol/L Potassium 4.4 (3.5-5.1) mmol/L Chloride 111 H (98-107) mmol/L Carbon Dioxide 23 (22-30) mmol/L BUN 9 (9-20) mg/dL Creatinine 0.51 L (0.66-1.25) mg/dL Glucose 112 H (74-99) mg/dL Calcium 9.3 (8.4-10.2) mg/dL Total Bilirubin 0.2 (0.2-1.3) mg/dL AST 26 (17-59) U/L ALT 21 (21-72) U/L Alkaline Phosphatase 117 (38-126) U/L Total Protein 7.8 (6.3-8.2) g/dL Albumin 4.2 (3.5-5.0) g/dL
--- NOTE | 2019-07-05 15:55 | P.HPIM ---
History of Present Illness H&P Date: 07/05/19 This is a 49-year-old gentleman with history of ongoing nicotine and alcohol dependence, occasional marijuana use, chest pain, COPD, gastroesophageal reflux disease, hypertension, hard of hearingwears hearing aid and multiple other medical issues. Presented to the ER with difficulty breathing, increased shortness of breath with accompanying cough ,occasional pale yellow sputum production. Patient also reports that for the last 2 years he has been having blood with bowel movements twice weekly-reports bright red when he has diarrhea. Denies black stools. Denies abdominal pain. Denies nausea, vomiting. Reports he had a normal EGD /colonoscopy approximately 4-[address] Robert ambrose.hemoglobin 14.7 .Denies chest pain, palpitations, lightheadedness, dizziness. Chest x-ray reporting minimal pleural diaphragmatic scarring left lung base, no change. EKG reporting normal sinus rhythm, sinus arrhythmia, right bundle branch block. Troponin negative 1 Afebrile, normal WBC. Review of Systems ROS Statement: Those systems with pertinent positive or pertinent negative responses have been documented in the HPI. ROS Other: All systems not noted in ROS Statement are negative. Past Medical History Past Medical History: Chest Pain / Angina, COPD, GERD/Reflux, Hearing Disorder / Deafness, Hypertension Additional Past Medical History / Comment(s): Heart murmur, frequent diarrhea, daily gerd, bilateral [place]-wears L hearing aide. History of Any Multi-Drug Resistant Organisms: None Reported Past Surgical History: Ear Surgery, Hernia Repair Additional Past Surgical History / Comment(s): Isac fundloplication, EGD, colonoscopy, multiple bilateral ear surgeries/tubes and eardrum reconstructions. Past Anesthesia/Blood Transfusion Reactions: No Reported Reaction Additional Past Anesthesia/Blood Transfusion Reaction / Comment(s): no hx blood transfusion Smoking Status: Current every day smoker - Past Family History Son(s) Family Medical History: Diabetes Mellitus Father Family Medical History: COPD, Pneumonia Medications and Allergies Home Medications Medication Instructions Recorded Confirmed Type Ibuprofen [Advil] 800 mg PO Q6HR PRN 07/05/19 07/05/19 History Allergies Allergy/AdvReac Type Severity Reaction Status Date / Time No Known Allergies Allergy Verified 07/05/19 07:34 Physical Exam Vitals: Vital Signs Temp Pulse Pulse Resp BP BP Pulse Ox 07/05/19 11:05 89 99 07/05/19 08:51 98.3 F 74 16 131/83 98 07/05/19 07:33 98.6 F 83 18 126/95 94 L 07/05/19 06:20 82 07/05/19 06:06 81 07/05/19 05:24 97.7 F 86 20 97 Intake and Output 07/04/19 07/05/19 07/05/19 22:59 06:59 14:59 Other: Weight 58.967 kg GENERAL: Sitting up in bed, alert and oriented 3, no acute distress HEENT: Head is atraumatic, normocephalic. Pupils are equal, round. Sclerae anicteric. Conjunctivae are clear. Oral Mucous membranes moist ,Neck is supple. There is no jugular venous distention. No carotid bruit. LUNGS: Clear to auscultation no rhonchi, or crackles. Positive expiratory wheezing. HEART: Regular rate and rhythm without murmurs, rubs or gallops. S1 and S2 heard. ABDOMEN: Soft, nontender. Nondistended. Positive Bowel sounds. No organomegaly noted. No guarding. EXTREMITIES: No peripheral edema, no calf tenderness. No clubbing, no cyanosis. NEUROLOGIC: No focal deficits Results CBC & Chem 7: 07/05/19 06:08 07/05/19 06:08 Labs: Abnormal Lab Results - Last 24 Hours (Table) 07/05/19 07/05/19 Range/Units 06:08 06:08 Monocytes # (Manual) 1.50 H (0-1.0) k/uL Chloride 111 H (98-107) mmol/L Creatinine 0.51 L (0.66-1.25) mg/dL Glucose 112 H (74-99) mg/dL Thrombosis Risk Factor Assmnt - Choose All That Apply Any of the Below Risk Factors Present?: Yes Each Factor Represents 1 point: Abnormal pulmonary function (COPD), Age 41-60 years Other Risk Factors: No Other congenital or acquired thrombophilia - If yes, enter type in comment: No Thrombosis Risk Factor Assessment Total Risk Factor Score: 2 Thrombosis Risk Factor Assessment Level: Low Risk Assessment and Plan Assessment: -Acute COPD exacerbation -Chronic intermittent, painless Rectal bleeding reported, twice weekly 2 years, in a patient who states normal colonoscopy 4-5 years ago. -Unclean nicotine dependence -Ongoing alcohol abuse Plan: Continue on current medication regime ,monitoring and symptomatic treatment. Maintain nebulized bronchodilators, steroids, antibiotics. Surgery consulted regarding potential GI bleed. Close monitoring of hemoglobin with repeat labs ordered. Smoking and alcohol cessation reinforced. Home meds have been reviewed and resumed accordingly. Further recommendations to follow. The impression and plan of care has been dictated as directed. : I performed a history and examination of this patient, discussed the same with the dictator. I agree with the dictator's note ,documented as a scribe. Any additional findings or plans will be noted.
[2019-07-05] MEDS ORDERED: IBUPROFEN 800 MG TAB PO PRN (16:09)
[2019-07-05 23:28] VITALS: TEMP 97.9
[2019-07-06 05:28] VITALS: BP 144/88; RESP 20
[2019-07-06] MEDS: BUDESONIDE 0.5 MG/2 ML NEBU INHALATION SCH (08:45)
[2019-07-06] MEDS: IPRATROPIUM-ALBUTEROL 3 ML NEB INHALATION SCH (08:45)
[2019-07-06 09:00] VITALS: PULSE 74
[2019-07-06] MEDS ORDERED: predniSONE 20 MG TAB PO SCH (09:00)
[2019-07-06] MEDS: AZITHROMYCIN 500 MG TAB PO SCH (09:04)
[2019-07-06 09:12] LABS: Basophils # (A) 0.1 k/uL (0-0.2); Basophils % (A) 1 %; Eosinophils # (A) 0.1 k/uL (0-0.7); Eosinophils % (A) 2 %; HCT 44.2 % (39.0-53.0); HGB 14.5 gm/dL (13.0-17.5); Lymphocytes # (A) 1.7 k/uL (1.0-4.8); Lymphocytes % (A) 24 %; MCH 32.4 pg (25.0-35.0); MCHC 32.9 g/dL (31.0-37.0); MCV 98.5 fL (80.0-100.0); Mean Platelet Volume 6.3; Monocytes # (A) 0.4 k/uL (0-1.0); Monocytes % (A) 6 %; Neutrophils # (A) 4.4 k/uL (1.3-7.7); Neutrophils % (A) 64 %; Platelet Count 246 k/uL (150-450); RBC 4.49 m/uL (4.30-5.90); RDW 13.1 % (11.5-15.5); WBC 6.9 k/uL (3.8-10.6)
[2019-07-06 09:22] LABS: African American GFR (CKD) >90 (>60 ml/min/1.73 sqM); Anion Gap 7 mmol/L; Blood Urea Nitrogen 17 mg/dL (9-20); Calcium 9.4 mg/dL (8.4-10.2); Carbon Dioxide 25 mmol/L (22-30); Chloride 105 mmol/L (98-107); Glucose 150 mg/dL (74-99); Non-African American GFR(CKD) >90 (>60 ml/min/1.73 sqM); Potassium 4.7 mmol/L (3.5-5.1); Sodium 137 mmol/L (137-145)
--- NOTE | 2019-07-06 15:08 | P.DS ---
Providers Date of admission: 07/05/19 07:17 Expected date of discharge: 07/06/19 Attending physician: Trino Ely Consults: 07/05/19 11:08 Consult Physician Routine Consulting Provider: Jhon Centeno Consult Reason/Comments: rectal bleeding Do you want consulting provider notified?: Yes Primary care physician: Trino [facility] Course: Final Diagnoses: -Acute COPD exacerbation -Chronic intermittent, painless Rectal bleeding reported, twice weekly 2 years, in a patient who states normal colonoscopy 4-5 years ago. Follow up outpatient with Dr. Centeno. -Ongoing nicotine dependence -Ongoing alcohol abuse Hospital course:This is a 49-year-old gentleman with history of ongoing nicotine and alcohol dependence, occasional marijuana use, chest pain, COPD, gastr oesophageal reflux disease, hypertension, hard of hearingwears hearing aid and multiple other medical issues. Presented to the ER with difficulty breathing, increased shortness of breath with accompanying cough ,occasional pale yellow sputum production. Patient also reports that for the last 2 years he has been having blood with bowel movements twice weekly-reports bright red when he has diarrhea. Denies black stools. Denies abdominal pain. Denies nausea, vomiting. Reports he had a normal EGD /colonoscopy approximately 4-[address] Centeno.hemoglobin 14.7 .Denies chest pain, palpitations, lightheadedness, dizziness. Chest x-ray reporting minimal pleural diaphragmatic scarring left lung base, no change. EKG reporting normal sinus rhythm, sinus arrhythmia, right bundle branch block. Troponin negative 1 Afebrile, normal WBC. Significant clinical improvement. Patient is being discharged home in a stable condition with fair prognosis. Hemoglobin stable, 14.5. Evaluated by surgery no endoscopy procedure recommended at this time but patient is advised to follow up outpatient. Patient is being discharged home in stable condition with guarded prognosis. GENERAL: alert and oriented 3, no acute distress LUNGS: Clear to auscultation no rhonchi, or crackles. HEART: Regular rate and rhythm without murmurs, rubs or gallops. S1 and S2 heard. ABDOMEN: Soft, nontender. Nondistended. Positive Bowel sounds. No organomegaly noted. No guarding. NEUROLOGIC: No focal deficits The impression and plan of care has been dictated as directed. : I performed a history and examination of this patient, discussed the same with the dictator. I agree with the dictator's note ,documented as a scribe. Any additional findings or plans will be noted. Patient Condition at Discharge: Stable Plan - Discharge Summary Discharge Rx Participant: No New Discharge Prescriptions: New predniSONE 10 mg PO DIRECTED #30 tab Azithromycin [Zithromax] 500 mg PO DAILY #5 tab Albuterol Sulfate [Ventolin HFA] 2 puff INHALATION QID #1 inhaler Mometasone/Formoterol [Dulera 100 Mcg/5 Mcg Inhaler] 2 puff INHALATION BID #1 inhaler Omeprazole [PriLOSEC] 20 mg PO AC-BRKFST #15 cap Continue Ibuprofen [Advil] 800 mg PO Q6HR PRN PRN Reason: Pain Discharge Medication List Ibuprofen [Advil] 800 mg PO Q6HR PRN 07/05/19 [History] Albuterol Sulfate [Ventolin HFA] 2 puff INHALATION QID #1 inhaler 07/06/19 [Rx] Azithromycin [Zithromax] 500 mg PO DAILY #5 tab 07/06/19 [Rx] Mometasone/Formoterol [Dulera 100 Mcg/5 Mcg Inhaler] 2 puff INHALATION BID #1 inhaler 07/06/19 [Rx] Omeprazole [PriLOSEC] 20 mg PO AC-BRKFST #15 cap 07/06/19 [Rx] predniSONE 10 mg PO DIRECTED #30 tab 07/06/19 [Rx] Follow up Appointment(s)/Referral(s): Trino Ely MD [Primary Care Provider] - 07/08/19 2:30 pm Jhon Centeno MD [STAFF PHYSICIAN] - 07/13/19 2:00 pm () Ambulatory/Diagnostic Orders: Complete Blood Count w/diff [LAB.AMB] Time Frame: 3 Days, Location: None Selected Patient Instructions/Handouts: Rectal Bleeding (DC), COPD (Chronic Obstructive Pulmonary Disease) (DC) Activity/Diet/Wound Care/Special Instructions: Activity as tolerated Discharge Disposition: HOME SELF-CARE
== END 2019-07-06 11:46 | disposition home or self-care (01) ==
LOC: EC 05:19 → 4MS4W 07:17
PROVIDERS: ADMIT Family Medicine; ATTEND Family Medicine
DX: J44.1 Chronic obstructive pulmonary disease with (acute) exacerbation (principal); K62.5 Hemorrhage of anus and rectum; I45.10 Unspecified right bundle-branch block; I10 Essential (primary) hypertension; K21.9 Gastro-esophageal reflux disease without esophagitis; H91.91 Unspecified hearing loss, right ear; F10.20 Alcohol dependence, uncomplicated; F17.200 Nicotine dependence, unspecified, uncomplicated; Z97.4 Presence of external hearing-aid; Z87.19 Personal history of other diseases of the digestive system; Z83.3 Family history of diabetes mellitus; Z82.5 Family history of asthma and other chronic lower respiratory diseases
CPT/HCPCS: 99285; 36415; 94640 ×3; 94760; 93005; 80053; 80048; 84484; 85025 ×2; 85610; 85730; 71046; G0378 ×2; J7512 ×2

== ENCOUNTER 2019-10-05 10:57 | Emergency (ER) | payer BC, OTHER ==
[2019-10-05 11:03] VITALS: BP 147/88; PULSE 81; RESP 18; TEMP 97.9
[2019-10-05] MEDS ORDERED: ACET/COD 300 MG/30 MG STARTER PACK 6 TAB BTL PO STA (11:19)
--- NOTE | 2019-10-05 11:19 | ED ---
ENT HPI - General Chief complaint: ENT Stated complaint: Fever/face swelling Time Seen by Provider: 10/05/19 11:10 Source: patient, RN notes reviewed Mode of arrival: ambulatory Limitations: no limitations - History of Present Illness Initial comments: 49-year-old male presents emergency Department chief complaint of right-sided facial swelling. Patient states this started last 24 hours. Patient states that this in the past in which she stated it was an infected gland. Patient states he took any medicine cleared up. He has no dentition states he has dentures. He reports a fever today but states he took Advil has noticed every day. No tobacco swelling. No headache, dizziness or neck stiffness. Patient states he has some pressure in front of his right ear. - Related Data Home Medications Medication Instructions Recorded Confirmed Ibuprofen [Advil] 800 mg PO Q6HR PRN 07/05/19 07/05/19 Previous Rx's Medication Instructions Recorded Albuterol Sulfate [Ventolin HFA] 2 puff INHALATION QID #1 inhaler 07/06/19 Azithromycin [Zithromax] 500 mg PO DAILY #5 tab 07/06/19 Mometasone/Formoterol [Dulera 100 2 puff INHALATION BID #1 inhaler 07/06/19 Mcg/5 Mcg Inhaler] Omeprazole [PriLOSEC] 20 mg PO AC-BRKFST #15 cap 07/06/19 predniSONE 10 mg PO DIRECTED #30 tab 07/06/19 Amoxicillin/Potassium Clav 1 tab PO Q12HR #20 tab 10/05/19 [Augmentin 875-125 Tablet] Allergies Allergy/AdvReac Type Severity Reaction Status Date / Time No Known Allergies Allergy Verified 10/05/19 11:02 Review of Systems ROS Statement: Those systems with pertinent positive or pertinent negative responses have been documented in the HPI. ROS Other: All systems not noted in ROS Statement are negative. Past Medical History Past Medical History: Chest Pain / Angina, COPD, GERD/Reflux, Hearing Disorder / Deafness, Hypertension Additional Past Medical History / Comment(s): Heart murmur, frequent diarrhea, daily gerd, bilateral HUSLIA-wears L hearing aide. History of Any Multi-Drug Resistant Organisms: None Reported Past Surgical History: Ear Surgery, Hernia Repair Additional Past Surgical History / Comment(s): Isac fundloplication, EGD, colonoscopy, multiple bilateral ear surgeries/tubes and eardrum reconstructions. Past Anesthesia/Blood Transfusion Reactions: No Reported Reaction Additional Past Anesthesia/Blood Transfusion Reaction / Comment(s): no hx blood transfusion Past Psychological History: No Psychological Hx Reported Smoking Status: Current every day smoker Past Alcohol Use History: Occasional Past Drug Use History: Marijuana - Past Family History Son(s) Family Medical History: Diabetes Mellitus Father Family Medical History: COPD, Pneumonia General Exam Limitations: no limitations General appearance: alert, in no apparent distress Head exam: Present: atraumatic, normocephalic, normal inspection Eye exam: Present: normal appearance, PERRL, EOMI. Absent: scleral icterus, conjunctival injection, periorbital swelling ENT exam: Present: mucous membranes moist, TM's normal bilaterally, normal external ear exam, other (Swelling noted on the right mandibular angle region and over the parotid gland region). Absent: normal exam (No dentition noted, no oral swelling no erythema noted), normal oropharynx Neck exam: Present: normal inspection, full ROM. Absent: tenderness, meningismus, lymphadenopathy Respiratory exam: Present: normal lung sounds bilaterally. Absent: respiratory distress, wheezes, rales, rhonchi, stridor Cardiovascular Exam: Present: regular rate, normal rhythm, normal heart sounds. Absent: systolic murmur, diastolic murmur, rubs, gallop, clicks GI/Abdominal exam: Present: soft, normal bowel sounds. Absent: distended, tenderness, guarding, rebound, rigid Course Vital Signs 10/05/19 11:00 Temperature 97.9 F Pulse Rate 81 Respiratory 18 Rate Blood Pressure 147/88 O2 Sat by Pulse 98 Oximetry Medical Decision Making - Medical Decision Making Patient has swelling on the right side of the face, this does not seem to be consistent with any dental infection as he has no oral dentition. He does seem consistent with inflammation, infection of his parotid gland. Patient will be given Augmentin at this time advised follow-up with ENT and return for any worsening symptoms. Disposition Clinical Impression: Parotitis, acute Disposition: HOME SELF-CARE Condition: Stable Instructions (If sedation given, give patient instructions): Sialoadenitis (ED) Additional Instructions: Please return to the Emergency Department if symptoms worsen or any other concerns. Prescriptions: Amoxicillin/Potassium Clav [Augmentin 875-125 Tablet] 1 tab PO Q12HR #20 tab Is patient prescribed a controlled substance at d/c from ED?: No Referrals: Trnio Ely MD [Primary Care Provider] - 1-2 days Tab Waters MD [STAFF PHYSICIAN] - 1-2 days Time of Disposition: 11:18
== END 2019-10-05 11:27 | disposition home or self-care (01) ==
LOC: EC 10:57
DX: K11.21 Acute sialoadenitis (principal); H91.93 Unspecified hearing loss, bilateral; F17.200 Nicotine dependence, unspecified, uncomplicated; Z97.4 Presence of external hearing-aid; Z97.2 Presence of dental prosthetic device (complete) (partial)
CPT/HCPCS: 99283

== ENCOUNTER 2019-10-25 14:54 | Observation (INO) | payer BC ==
[2019-10-25 17:07] LABS: HCT 44.8 % (39.0-53.0); MCH 32.2 pg (25.0-35.0); MCHC 33.4 g/dL (31.0-37.0); MCV 96.4 fL (80.0-100.0); Platelet Count 219 k/uL (150-450); RBC 4.65 m/uL (4.30-5.90); RDW 12.6 % (11.5-15.5); WBC 5.3 k/uL (3.8-10.6)
[2019-10-25 17:19] LABS: ALT 18 U/L (4-49); AST 31 U/L (17-59); African American GFR (CKD) >90 (>60 ml/min/1.73 sqM); Albumin 4.5 g/dL (3.5-5.0); Alkaline Phosphatase 104 U/L (38-126); Anion Gap 11 mmol/L; Blood Urea Nitrogen 9 mg/dL (9-20); Calcium 9.2 mg/dL (8.4-10.2); Carbon Dioxide 23 mmol/L (22-30); Chloride 98 mmol/L (98-107); Glucose 95 mg/dL (74-99); Non-African American GFR(CKD) >90 (>60 ml/min/1.73 sqM); Potassium 4.3 mmol/L (3.5-5.1); Sodium 132 mmol/L (137-145); Total Bilirubin 0.2 mg/dL (0.2-1.3); Total Protein 8.1 g/dL (6.3-8.2)
[2019-10-25 17:37] LABS: Lymphocytes # (M) 0.74 k/uL (1.0-4.8); Neutrophils # (M) 3.66 k/uL (1.3-7.7); Neutrophils % (M) 69 %; Nucleated Red Blood Cells 0 /100 WBC (0-0); Total Cells Counted 100
[2019-10-25 17:38] LABS: Toxic Granulation Present; Toxic Vacuolation Present
[2019-10-25] MEDS ORDERED: ALBUTEROL NEBULIZED 2.5 MG/3 ML INHALATION PRN ×2 (18:00→18:07)
[2019-10-25 19:29] LABS: Appearance,Urine Clear (Clear); Bilirubin,Urine Negative (Negative); Blood,Urine Negative (Negative); Color,Urine Yellow; Glucose,Urine (UA) Negative (Negative); Ketones,Urine Trace (Negative); Leukocyte Esterase,Urine Negative (Negative); Nitrite,Urine Negative (Negative); Protein,Urine Negative (Negative); Specific Gravity,Urine 1.012 (1.001-1.035); Urobilinogen,Urine <2.0 mg/dL (<2.0)
[2019-10-25] MEDS: SYMBICORT 80-4.5 MCG INHALER INHALATION SCH (20:42)
[2019-10-25] MEDS: SODIUM CHLORIDE 0.9% 1,000 ML IV SCH (20:54)
[2019-10-26] MEDS: SODIUM CHLORIDE 0.9% 1,000 ML IV SCH ×2 (05:36→15:45)
[2019-10-26] MEDS: IOPAMIDOL CONTRAST (ORAL USE) VIAL PO PRN ×2 (07:45→09:05)
[2019-10-26] MEDS: SYMBICORT 80-4.5 MCG INHALER INHALATION SCH ×2 (09:16→19:46)
--- NOTE | 2019-10-26 10:47 | CT ---
EXAMINATION TYPE: CT abdomen pelvis wo/w con DATE OF EXAM: 10/26/2019 COMPARISON: 11/28/2016 HISTORY: 49 year-old male abdominal pain TECHNIQUE: Contiguous axial scanning of the abdomen and pelvis before and after administration of 100 ml Isovue 300 IV contrast. Delayed images through the kidneys and coronal/sagittal reconstructions performed. CT DLP: 1054 mGycm Automated exposure control for dose reduction was used. FINDINGS: LUNG BASES: Some emphysematous change in strandy atelectasis/scarring at the lung bases. Status post Isac fundoplication. LIVER/GB: No significant abnormality is appreciated. PANCREAS: No significant abnormality is seen. SPLEEN: No significant abnormality is seen. ADRENALS: No significant abnormality is seen. KIDNEYS: Tiny subcortical hypodensity lateral left kidney too small for accurate CT characterization, present in 2017 compatible with a tiny cyst. LYMPH NODES: Scattered mild to moderate atherosclerotic calcifications infrarenal abdominal aorta and iliac arteries without aneurysm. No mesenteric or retroperitoneal lymphadenopathy. REPRODUCTIVE ORGANS: Prostate gland mildly prominent at 4.1 cm wide with some central calcifications. Bladder collapsed with mild circumferential wall thickening. No abnormal fluid collection in the pel vis or pelvic lymphadenopathy. BOWEL: There may be some generalized gastric fold thickening. No dilated small bowel, free fluid, or free air. No significant stool burden. No pericolonic inflammatory change. BONES: Mild degenerative change of the hips. Mild degenerative disc disease throughout the lumbar spi ne. Facet arthropathy with grade 1 retrolisthesis at L2-L3. IMPRESSION: 1. MILD CIRCUMFERENTIAL BLADDER WALL THICKENING COULD REFLECT CHRONIC BLADDER WALL HYPERTROPHY. CORRE LATE TO EXCLUDE CYSTITIS. 2. SOME GENERALIZED GASTRIC FOLD THICKENING CAN BE SEEN WITH CHRONIC GASTRITIS. CLINICALLY CORRELATE.
[2019-10-26] MEDS ORDERED: PEG 3350-NA SULF,BICARB,CL/KCL 4,000 ML BOTTLE PO ONE (12:54)
[2019-10-26 13:11] VITALS: BMI 19.8
--- NOTE | 2019-10-26 14:17 | P.GSCN ---
History of Present Illness Consult date: 10/26/19 Reason for Consult: Diarrhea Requesting physician: Trino Ely History of present illness: CHIEF COMPLAINT: Diarrhea HISTORY OF PRESENT ILLNESS: 49-year-old male who is admitted to the hospital secondary to diarrhea. Patient examined at the bedside with Dr. Centeno. Carmen bailey reports having diarrhea for the last 3 weeks. He reports bilateral lower quadrant abdominal pain. He denies nausea or vomiting. Denies fever or chills. He reports having an EGD and colonoscopy approximately [address] Centeno. Patient believes they were normal at that time. Patient reported to his nurse yesterday that he takes Aleve 800mg three times a day and drinks multiple beers a day as well. PAST MEDICAL HISTORY: See list. PAST SURGICAL HISTORY: See list. SOCIAL HISTORY: Reports daily alcohol use REVIEW OF SYSTEMS: CONSTITUTIONAL: Denies fever or chills. HEENT: Denies blurred vision, vision changes, or eye pain. Denies hemoptysis CARDIOVASCULAR: Denies chest pain or pressure. RESPIRATORY: No shortness of breath. GASTROINTESTINAL: Refer to HPI for pertinent findings HEMATOLOGIC: Denies bleeding disorders. GENITOURINARY: Denies any blood in urine. SKIN: Denies pruitis. Denies rash. PHYSICAL EXAM: VITAL SIGNS: Reviewed. GENERAL: Well-developed in no acute distress. HEENT: No sclera icterus. Extraocular movements grossly intact. Moist buccal mucosa. Head is atraumatic, normocephalic. ABDOMEN: Soft. Nondistended. Mild tenderness with palpation to lower abdomen. NEUROLOGIC: Alert and oriented. Cranial nerves II through XII grossly intact. LABORATORY DATA: WBC 5.3. Hemoglobin 15.0. Platelet count 219. IMAGING: CT abdomen and pelvis: Mild circumferential bladder wall thickening could reflect chronic bladder wall hypertrophy. Some generalized gastric fold thickening can be seen with chronic gastritis. ASSESSMENT: 1. Diarrhea 2. Possible gastritis 3. Daily alcohol use 4. Daily NSAID use PLAN: Clear liquid diet. NPO at midnight Protonix 40mg IV BID GoLYTELY bowel prep Will proceed with EGD and colonoscopy tomorrow with Dr. Centeno Nurse practitioner note has been reviewed by physician. Signing provider agrees with the documented findings, assessment, and plan of care. Past Medical History Past Medical History: Chest Pain / Angina, COPD, GERD/Reflux, Hearing Disorder / Deafness, Hypertension Additional Past Medical History / Comment(s): Heart murmur, frequent diarrhea, daily gerd, bilateral CHEFORNAK-wears L hearing aide. History of Any Multi-Drug Resistant Organisms: None Reported Past Surgical History: Ear Surgery, Hernia Repair Additional Past Surgical History / Comment(s): Isac fundloplication, EGD, colonoscopy, multiple bilateral ear surgeries/tubes and eardrum reconstructions. Past Anesthesia/Blood Transfusion Reactions: No Reported Reaction Additional Past Anesthesia/Blood Transfusion Reaction / Comm: no hx blood transfusion Past Psychological History: No Psychological Hx Reported Additional Psychological History / Comment(s): Pt resides with his spouse. He is independent. Smoking Status: Current every day smoker Past Alcohol Use History: Occasional Additional Past Alcohol Use History / Comment(s): Pt started smoking in 1985 and smokes 1.5 ppd. He drinks 5 20 oz beers a day. Past Drug Use History: Marijuana Additional Drug Use History / Comment(s): uses marijuana occasionally - Past Family History Son(s) Family Medical History: Diabetes Mellitus Father Family Medical History: COPD, Pneumonia Medications and Allergies Home Medications Medication Instructions Recorded Confirmed Type Ibuprofen [Advil] 800 mg PO TID PRN 07/05/19 10/25/19 History Albuterol Inhaler [Ventolin Hfa 2 puff INHALATION RT-Q6H PRN 10/25/19 10/25/19 History Inhaler] Allergies Allergy/AdvReac Type Severity Reaction Status Date / Time No Known Allergies Allergy Verified 10/25/19 19:33 Surgical - Exam Vital Signs Temp Pulse Resp BP Pulse Ox 98.8 F 100 18 143/87 98 10/25/19 16:15 10/25/19 16:15 10/25/19 16:15 10/25/19 16:15 10/25/19 16:15 Results - Labs 10/25/19 16:40 10/25/19 16:40 Abnormal Lab Results - Last 24 Hours (Table) 10/25/19 10/25/19 10/25/19 Range/Units 16:40 16:40 19:10 Lymphocytes # (Manual) 0.74 L (1.0-4.8) k/uL Sodium 132 L (137-145) mmol/L Creatinine 0.62 L (0.66-1.25) mg/dL Urine Ketones Trace H (Negative) Microbiology - Last 24 Hours (Table) 10/26/19 07:00 Stool Culture - Preliminary Stool Diabetes panel 10/25/19 Range/Units 16:40 Sodium 132 L (137-145) mmol/L Potassium 4.3 (3.5-5.1) mmol/L Chloride 98 (98-107) mmol/L Carbon Dioxide 23 (22-30) mmol/L BUN 9 (9-20) mg/dL Creatinine 0.62 L (0.66-1.25) mg/dL Glucose 95 (74-99) mg/dL Calcium 9.2 (8.4-10.2) mg/dL AST 31 (17-59) U/L ALT 18 (4-49) U/L Alkaline Phosphatase 104 (38-126) U/L Total Protein 8.1 (6.3-8.2) g/dL Albumin 4.5 (3.5-5.0) g/dL Calcium panel 10/25/19 Range/Units 16:40 Calcium 9.2 (8.4-10.2) mg/dL Albumin 4.5 (3.5-5.0) g/dL Pituitary panel 10/25/19 Range/Units 16:40 Sodium 132 L (137-145) mmol/L Potassium 4.3 (3.5-5.1) mmol/L Chloride 98 (98-107) mmol/L Carbon Dioxide 23 (22-30) mmol/L BUN 9 (9-20) mg/dL Creatinine 0.62 L (0.66-1.25) mg/dL Glucose 95 (74-99) mg/dL Calcium 9.2 (8.4-10.2) mg/dL Adrenal panel 10/25/19 Range/Units 16:40 Sodium 132 L (137-145) mmol/L Potassium 4.3 (3.5-5.1) mmol/L Chloride 98 (98-107) mmol/L Carbon Dioxide 23 (22-30) mmol/L BUN 9 (9-20) mg/dL Creatinine 0.62 L (0.66-1.25) mg/dL Glucose 95 (74-99) mg/dL Calcium 9.2 (8.4-10.2) mg/dL Total Bilirubin 0.2 (0.2-1.3) mg/dL AST 31 (17-59) U/L ALT 18 (4-49) U/L Alkaline Phosphatase 104 (38-126) U/L Total Protein 8.1 (6.3-8.2) g/dL Albumin 4.5 (3.5-5.0) g/dL
[2019-10-26] MEDS ORDERED: ACETAMINOPHEN TAB 325 MG TAB PO PRN (21:15)
[2019-10-26 21:42] LABS: HCT 44.7 % (39.0-53.0); HGB 14.8 gm/dL (13.0-17.5); MCH 31.9 pg (25.0-35.0); MCV 96.6 fL (80.0-100.0); Mean Platelet Volume 7.9; Platelet Count 189 k/uL (150-450); RBC 4.63 m/uL (4.30-5.90); RDW 12.5 % (11.5-15.5)
[2019-10-26 21:57] LABS: ALT 19 U/L (4-49); AST 33 U/L (17-59); African American GFR (CKD) >90 (>60 ml/min/1.73 sqM); Alkaline Phosphatase 87 U/L (38-126); Anion Gap 9 mmol/L; Blood Urea Nitrogen 7 mg/dL (9-20); Carbon Dioxide 23 mmol/L (22-30); Chloride 101 mmol/L (98-107); Glucose 100 mg/dL (74-99); Non-African American GFR(CKD) >90 (>60 ml/min/1.73 sqM); Potassium 4.1 mmol/L (3.5-5.1); Sodium 133 mmol/L (137-145); Total Bilirubin 0.2 mg/dL (0.2-1.3); Total Protein 7.5 g/dL (6.3-8.2)
[2019-10-26 22:00] LABS: Band Neutrophils % 1 %; Neutrophils % (M) 54 %; Nucleated Red Blood Cells 0 /100 WBC (0-0); Total Cells Counted 100
--- NOTE | 2019-10-26 22:08 | HP ---
HISTORY AND PHYSICAL CHIEF COMPLAINT: This patient is a 49-year-old white male who was admitted with severe diarrhea 8-10 times in the last day, abdominal pain. He is scheduled for EGD and colonoscopy in the morning. He takes Aleve 800 mg t.i.d. and drinks multiple beers a day as well. He is waiting for colonoscopy and EGD in the morning. For past medical history, see old chart. Social history as mentioned above. Fourteen- point review of systems: Chronic diarrhea, nausea, vomiting and abdominal pain. PHYSICAL EXAMINATION: Vital signs are stable. Afebrile. CARDIOVASCULAR: S1, S2. LUNGS: Transmitted upper airway sounds. Wheezes at the bases. HEMATOLOGY: Negative Homans. PSYCH: Fair mood and affect. GI: Soft, nontender. Increased bowel sounds x4. Cranial nerves are intact. White count 5.3, hemoglobin 15, platelet count 219. CT of the abdomen shows bladder wall thickening, chronic bladder white hypertrophy, possible chronic gastritis. ASSESSMENT: 1. Diarrhea. Possible gastritis. 2. Daily alcohol use. 3. Daily usage of non-steroidal anti-inflammatories. Clear liquid diet, n.p.o. at midnight. Continue with IV Protonix 40 b.i.d., GoLYTELY. EGD, colonoscopy, possible discharge after this. MMODL / IJN: [id number] /
[2019-10-27] MEDS: SODIUM CHLORIDE 0.9% 1,000 ML IV SCH ×4 (00:29→08:20)
[2019-10-27 04:33] LABS: Amorphous Sediment,Urine Rare /hpf; Appearance,Urine Turbid (Clear); Bacteria,Urine Occasional /hpf; Bilirubin,Urine 1+ (Negative); Blood,Urine Small (Negative); Color,Urine Yellow; Glucose,Urine (UA) Negative (Negative); Ketones,Urine Negative (Negative); Leukocyte Esterase,Urine Large (Negative); Mucus,Urine Rare /hpf; Nitrite,Urine Negative (Negative); PH, Urine 8.5 (5.0-8.0); Protein,Urine 1+ (Negative); RBC,Urine 9 /hpf (0-5); Specific Gravity,Urine 1.036 (1.001-1.035); Squamous Epithelial Cell,Urine 1 /hpf (0-4); Urobilinogen,Urine <2.0 mg/dL (<2.0); WBC,Urine 9 /hpf (0-5)
[2019-10-27] MEDS: SYMBICORT 80-4.5 MCG INHALER INHALATION SCH (07:47)
[2019-10-27] MEDS ORDERED: PANTOPRAZOLE 40 MG/10 ML VIAL IVP SCH (09:00)
[2019-10-27] MEDS ORDERED: IV FLUID CONTINUATION 200 ML IV ONE (13:36)
[2019-10-27] MEDS ORDERED: LIDOCAINE 1% INJ 10MG/ML (20 ML MDV) ONE (13:36)
[2019-10-27] MEDS ORDERED: PROPOFOL 10 MG/ML 20 ML VIAL IV ONE (13:36)
[2019-10-27] MEDS ORDERED: SODIUM CHLORIDE 0.9% 500 ML IV ONE (13:54)
--- NOTE | 2019-10-27 13:59 | P.OP ---
Date of Procedure: 10/27/19 Preoperative Diagnosis: GI bleed Postoperative Diagnosis: Duodenitis Antral gastritis Sliding hiatal hernia Esophagitis Procedure(s) Performed: EGD Colonoscopy Anesthesia: MAC Surgeon: Jhon Centeno Pathology: other (Antrum, duodenum, esophagus) Condition: stable Disposition: PACU Description of Procedure: The patient's placed on the endoscopy table in the lateral position. He received IV sedation. The gastroscope placed oropharynx passed in the esophagus into the stomach. Scope was then placed through the pylorus. The first and second portion of duodenum was examined. There appeared to be inflammation of the duodenum. The duodenal biopsies performed in the first portion duodenum. S cope was then brought back the antrum and this was mildly inflamed. A biopsies performed. Scope was then retroflexed and the patient was noted to have a sliding hiatal hernia. The GE junction was at 38 cm. The distal esophagus appeared inflamed there is evidence of significant esophagitis. A biopsies performed. The proximal esophagus appeared normal. Scope was withdrawn for patient. Next digital rectal exam performed. There was external hemorrhoids noted. The flexible colonoscope was then placed patient anus and passed through the colon. The ileocecal valve was visualized secondary to tortuosity valve. Scope was withdrawn the remainder of the ascending colon, Vinicius colon, descending colon appeared normal. Sigmoid colon and rectum appeared normal. Scope was withdrawn from the patient's anus and there were external hemorrhoids noted. There is no evidence of any GI bleed. It is presumed the patient's bleeding may be due to hemorrhoids or the significant erosive esophagitis.
[2019-10-27 14:41] VITALS: BP 107/69; PULSE 89; RESP 14; TEMP 98.2
== END 2019-10-27 17:43 | disposition home or self-care (01) ==
LOC: 6NMEDSUR 16:03
PROVIDERS: ADMIT Family Medicine; ATTEND Family Medicine
DX: K29.80 Duodenitis without bleeding (principal); K29.50 Unspecified chronic gastritis without bleeding; K44.9 Diaphragmatic hernia without obstruction or gangrene; K21.0 Gastro-esophageal reflux disease with esophagitis; Z72.89 Other problems related to lifestyle; J44.9 Chronic obstructive pulmonary disease, unspecified; I10 Essential (primary) hypertension; H91.90 Unspecified hearing loss, unspecified ear; I20.9 Angina pectoris, unspecified; R01.1 Cardiac murmur, unspecified; K52.9 Noninfective gastroenteritis and colitis, unspecified; F17.200 Nicotine dependence, unspecified, uncomplicated; Z83.3 Family history of diabetes mellitus; Z82.5 Family history of asthma and other chronic lower respiratory diseases; Z79.899 Other long term (current) drug therapy; Z79.1 Long term (current) use of non-steroidal anti-inflammatories (NSAID)
CPT/HCPCS: 96360; 96361; 94640 ×4; 88305; 80053 ×2; 83690; 85025 ×2; 82272; 81003; 81001; 88312; 87040; 87045; 87046; 74178; 45378; 43239; G0379; G0378 ×3; C9113; Q9967

== ENCOUNTER 2020-03-06 04:30 | Emergency (ER) | payer BC, OTHER ==
--- NOTE | 2020-03-06 04:58 | ED ---
SOB HPI - General Chief Complaint: Shortness of Breath Stated Complaint: NILDA Time Seen by Provider: 03/06/20 04:56 Source: patient Mode of arrival: ambulatory Limitations: no limitations - History of Present Illness MD Complaint: shortness of breath, cough Onset/Timin -: days(s) Consistency: constant Improves With: nothing Known History Of: COPD Associated Symptoms: cough Treatments Prior to Arrival: bronchodilator - Related Data Home Oxygen Therapy: No Home Medications Medication Instructions Recorded Confirmed Ibuprofen [Advil] 800 mg PO TID PRN 07/05/19 10/25/19 Albuterol Inhaler (Mhu) [Ventolin 2 puff INHALATION RT-Q6H PRN 10/25/19 10/25/19 Hfa Inhaler] Previous Rx's Medication Instructions Recorded predniSONE 60 mg PO DAILY #30 tab 03/06/20 Allergies Allergy/AdvReac Type Severity Reaction Status Date / Time No Known Allergies Allergy Verified 03/06/20 04:36 Review of Systems ROS Statement: Those systems with pertinent positive or pertinent negative responses have been documented in the HPI. ROS Other: All systems not noted in ROS Statement are negative. Constitutional: Denies: fever, chills ENT: Reports: throat pain, congestion Respiratory: Reports: cough, dyspnea, wheezes Cardiovascular: Denies: chest pain, palpitations, edema, syncope Gastrointestinal: Denies: abdominal pain, vomiting, diarrhea, melena, hematochezia Genitourinary: Denies: dysuria, hematuria Musculoskeletal: Denies: back pain Skin: Denies: rash Neurological: Denies: headache Past Medical History Past Medical History: Chest Pain / Angina, COPD, GERD/Reflux, Hearing Disorder / Deafness, Hypertension Additional Past Medical History / Comment(s): Heart murmur, frequent diarrhea, daily gerd, bilateral [employer]-wears L hearing aide. History of Any Multi-Drug Resistant Organisms: None Reported Past Surgical History: Ear Surgery, Hernia Repair Additional Past Surgical History / Comment(s): Isac fundloplication, EGD, colonoscopy, multiple bilateral ear surgeries/tubes and eardrum reconstructions. Past Anesthesia/Blood Transfusion Reactions: No Reported Reaction Additional Past Anesthesia/Blood Transfusion Reaction / Comment(s): no hx blood transfusion Past Psychological History: No Psychological Hx Reported Smoking Status: Current every day smoker Past Alcohol Use History: Occasional Past Drug Use History: Marijuana - Past Family History Son(s) Family Medical History: Diabetes Mellitus Father Family Medical History: COPD, Pneumonia General Exam Limitations: no limitations General appearance: alert, in no apparent distress Head exam: Present: atraumatic, normocephalic Eye exam: Present: normal appearance. Absent: scleral icterus, conjunctival injection ENT exam: Present: normal oropharynx Respiratory exam: Present: wheezes. Absent: respiratory distress, rales, rhonchi, stridor, accessory muscle use, decreased breath sounds Cardiovascular Exam: Present: regular rate, normal rhythm, normal heart sounds. Absent: systolic murmur, diastolic murmur, rubs, gallop GI/Abdominal exam: Present: soft. Absent: distended, tenderness, guarding, rebound, rigid Extremities exam: Present: normal inspection, normal capillary refill. Absent: pedal edema, calf tenderness Back exam: Present: normal inspection. Absent: CVA tenderness (R), CVA tenderness (L) Neurological exam: Present: alert Skin exam: Present: warm, dry, intact, normal color. Absent: rash Course Vital Signs 03/06/20 03/06/20 04:33 05:39 Temperature 98.0 F Pulse Rate 77 74 Respiratory 22 Rate Blood Pressure 146/84 O2 Sat by Pulse 98 Oximetry Medical Decision Making - Lab Data Result diagrams: 03/06/20 05:21 03/06/20 05:21 Lab Results 03/06/20 03/06/20 03/06/20 Range/Units 05:21 05:21 05:21 WBC 9.8 (3.8-10.6) k/uL RBC 4.55 (4.30-5.90) m/uL Hgb 15.2 (13.0-17.5) gm/dL Hct 45.2 (39.0-53.0) % MCV 99.3 (80.0-100.0) fL MCH 33.4 (25.0-35.0) pg MCHC 33.6 (31.0-37.0) g/dL RDW 13.1 (11.5-15.5) % Plt Count 204 (150-450) k/uL Neutrophils % 75 % Lymphocytes % 13 % Monocytes % 6 % Eosinophils % 2 % Basophils % 1 % Neutrophils # 7.4 (1.3-7.7) k/uL Lymphocytes # 1.3 (1.0-4.8) k/uL Monocytes # 0.6 (0-1.0) k/uL Eosinophils # 0.2 (0-0.7) k/uL Basophils # 0.1 (0-0.2) k/uL D-Dimer 0.91 H (<0.60) mg/L FEU Sodium 137 (137-145) mmol/L Potassium 4.4 (3.5-5.1) mmol/L Chloride 105 (98-107) mmol/L Carbon Dioxide 24 (22-30) mmol/L Anion Gap 8 mmol/L BUN 13 (9-20) mg/dL Creatinine 0.53 L (0.66-1.25) mg/dL Est GFR (CKD-EPI)AfAm >90 (>60 ml/min/1.73 sqM) Est GFR (CKD-EPI)NonAf >90 (>60 ml/min/1.73 sqM) Glucose 96 (74-99) mg/dL Calcium 9.7 (8.4-10.2) mg/dL Total Bilirubin 0.6 (0.2-1.3) mg/dL AST 30 (17-59) U/L ALT 18 (4-49) U/L Alkaline Phosphatase 151 H (38-126) U/L Troponin I (0.000-0.034) ng/mL NT-Pro-B Natriuret Pep pg/mL Total Protein 7.9 (6.3-8.2) g/dL Albumin 4.3 (3.5-5.0) g/dL 03/06/20 03/06/20 Range/Units 05:21 05:21 WBC (3.8-10.6) k/uL RBC (4.30-5.90) m/uL Hgb (13.0-17.5) gm/dL Hct (39.0-53.0) % MCV (80.0-100.0) fL MCH (25.0-35.0) pg MCHC (31.0-37.0) g/dL RDW (11.5-15.5) % Plt Count (150-450) k/uL Neutrophils % % Lymphocytes % % Monocytes % % Eosinophils % % Basophils % % Neutrophils # (1.3-7.7) k/uL Lymphocytes # (1.0-4.8) k/uL Monocytes # (0-1.0) k/uL Eosinophils # (0-0.7) k/uL Basophils # (0-0.2) k/uL D-Dimer (<0.60) mg/L FEU Sodium (137-145) mmol/L Potassium (3.5-5.1) mmol/L Chloride (98-107) mmol/L Carbon Dioxide (22-30) mmol/L Anion Gap mmol/L BUN (9-20) mg/dL Creatinine (0.66-1.25) mg/dL Est GFR (CKD-EPI)AfAm (>60 ml/min/1.73 sqM) Est GFR (CKD-EPI)NonAf (>60 ml/min/1.73 sqM) Glucose (74-99) mg/dL Calcium (8.4-10.2) mg/dL Total Bilirubin (0.2-1.3) mg/dL AST (17-59) U/L ALT (4-49) U/L Alkaline Phosphatase (38-126) U/L Troponin I <0.012 (0.000-0.034) ng/mL NT-Pro-B Natriuret Pep 165 pg/mL Total Protein (6.3-8.2) g/dL Albumin (3.5-5.0) g/dL - EKG Data -: EKG Interpreted by Nm EKG shows normal: sinus rhythm, intervals (OH interval 106 ms, short. QTC 431 ms, normal. QRS duration is 126 ms, prolonged consistent with the right bundle- branch block.), QRS complexes (There is a right bundle-branch block.) Rate: normal (Rate 72 bpm) Disposition Clinical Impression: COPD exacerbation Disposition: HOME SELF-CARE Condition: Good Instructions (If sedation given, give patient instructions): COPD (Chronic Obstructive Pulmonary Disease) (ED) Prescriptions: predniSONE 60 mg PO DAILY #30 tab Is patient prescribed a controlled substance at d/c from ED?: No Referrals: Trino Ely MD [Primary Care Provider] - 1-2 days
[2020-03-06] MEDS ORDERED: predniSONE 20 MG TAB PO STA (05:09)
[2020-03-06] MEDS ORDERED: IPRATROPIUM-ALBUTEROL 3 ML NEB INHALATION STA (05:09)
[2020-03-06 05:27] LABS: Basophils # (A) 0.1 k/uL (0-0.2); Basophils % (A) 1 %; Eosinophils # (A) 0.2 k/uL (0-0.7); Eosinophils % (A) 2 %; HCT 45.2 % (39.0-53.0); HGB 15.2 gm/dL (13.0-17.5); Lymphocytes # (A) 1.3 k/uL (1.0-4.8); Lymphocytes % (A) 13 %; MCH 33.4 pg (25.0-35.0); MCHC 33.6 g/dL (31.0-37.0); MCV 99.3 fL (80.0-100.0); Mean Platelet Volume 8.9; Monocytes # (A) 0.6 k/uL (0-1.0); Monocytes % (A) 6 %; Neutrophils # (A) 7.4 k/uL (1.3-7.7); Neutrophils % (A) 75 %; Platelet Count 204 k/uL (150-450); RBC 4.55 m/uL (4.30-5.90); RDW 13.1 % (11.5-15.5); WBC 9.8 k/uL (3.8-10.6)
--- NOTE | 2020-03-06 05:36 | XR ---
EXAMINATION TYPE: XR chest 2V DATE OF EXAM: 03/06/2020 COMPARISON: 07/05/2019 HISTORY: Difficulty breathing TECHNIQUE: 2 views FINDINGS: There is some blunting of the left costophrenic angle. The lungs are clear of consolidation . There are chest leads. Heart size is normal. There is no heart failure. IMPRESSION: There is some pleural diaphragmatic scarring left lung base increased compared to old exa m. Normal heart.
[2020-03-06 05:37] LABS: ALT 18 U/L (4-49); AST 30 U/L (17-59); African American GFR (CKD) >90 (>60 ml/min/1.73 sqM); Albumin 4.3 g/dL (3.5-5.0); Alkaline Phosphatase 151 U/L (38-126); Anion Gap 8 mmol/L; Blood Urea Nitrogen 13 mg/dL (9-20); Calcium 9.7 mg/dL (8.4-10.2); Carbon Dioxide 24 mmol/L (22-30); Chloride 105 mmol/L (98-107); Glucose 96 mg/dL (74-99); Non-African American GFR(CKD) >90 (>60 ml/min/1.73 sqM); Potassium 4.4 mmol/L (3.5-5.1); Sodium 137 mmol/L (137-145); Total Bilirubin 0.6 mg/dL (0.2-1.3); Total Protein 7.9 g/dL (6.3-8.2)
--- NOTE | 2020-03-06 07:00 | CT ---
EXAMINATION TYPE: CT chest angio for PE DATE OF EXAM: 03/06/2020 COMPARISON: 08/26/2018 HISTORY: Trouble breathing CT DLP: 282.3 mGycm Automated exposure control for dose reduction was used. CONTRAST: Performed with IV Contrast, patient injected with 100, wasted 12 mL of Isovue 370. There are 3-D post processed images. Images obtained from the thoracic inlet to the diaphragm with IV contrast. FINDINGS: There is diffuse pulmonary emphysema. There is no evidence of a pulmonary mass. There is no pleural e ffusion. There is no mediastinal adenopathy. Thoracic aorta is intact. There is no aneurysm or dissec tion. There are no hilar masses. Heart size is normal. There is no pericardial effusion. There is normal contrast opacification of the pulmonary arteries. There are no filling defect. Thoracic vertebra have normal alignment. Posterior elements are intact. The ribs appear intact. Upper abdominal soft tissues appear intact. IMPRESSION: No evidence of pulmonary embolism. Pulmonary emphysema. Minimal subsegmental atelectasis at the posterior lung bases.
[2020-03-06 07:20] VITALS: BP 143/90; PULSE 79; RESP 15; TEMP 98.7
== END 2020-03-06 07:20 | disposition home or self-care (01) ==
LOC: EC 04:30
DX: J44.1 Chronic obstructive pulmonary disease with (acute) exacerbation (principal); I45.10 Unspecified right bundle-branch block; F17.200 Nicotine dependence, unspecified, uncomplicated; Z20.828 Contact with and (suspected) exposure to other viral communicable diseases; Z79.51 Long term (current) use of inhaled steroids
CPT/HCPCS: 36415; 94640; 93005; 85379; 83880; 80053; 84484; 85025; 71046; 71275; 99285; U0003; J7512; Q9967

== ENCOUNTER → 2020-05-04 | Outpatient (CLI) | payer BC, OTHER ==
[~2020-05-04] MED LIST changes: -DEXAMETHASONE SOD PHOSPHATE 10 MG/ML 1 ML VIAL IV ONE; -LACTATED RINGERS 1,000 ML IV SCH; -LIDOCAINE 1% 20 ML VIAL (10MG/ML) FOR IV START INTRADERMA PRN; -MIDAZOLAM 2 MG/2 ML VIAL IV PRN; -ONDANSETRON 4 MG/2 ML VIAL IVP ONE; +REGADENOSON 0.4 MG/5 ML SYRINGE IV ONE; -fentaNYL (PF) 50 MCG/ML 2 ML AMP IV PRN
--- NOTE | 2020-05-04 13:36 | P.STRESS ---
- Stress Test Note Stress Test Results/Findings: Exam Performed: NM stress lexiscan cardiolite Exam Date: 05/04/20 Reason for Exam: ABNORMAL EKG Height: 5 ft 7 in Weight: 130 kg Protocol: LEXISCAN Stage: NA Duration of Exercise: NA Resting Heart Rate: 73 Resting Blood Pressure: 130/87 Maximum Achieved Heart Rate: 93 Maximum Achieved Blood Pressure: 147/88 85% PMHR: NA 100% PMHR: NA METS: NA Technologist Comment: Stress Test Results/Findings: At baseline EKG showed normal sinus rhythm with a heart rate of 83 bpm, normal axis, right bundle branch block with nonspecific ST-T wave abnormalities Patient recieved IV infusion of Lexiscan 0.4mg and at peak infusion EKG showed no significant change from baseline EKG with continued right bundle branch block and nonspecific ST T wave abnormalities. Conclusions: 1. Normal EKG response to Lexiscan infusion 2. Nuclear imaging to be reported separately.
--- NOTE | 2020-05-04 14:43 | NM ---
EXAMINATION TYPE: NM stress lexiscan cardiolite DATE OF EXAM: 05/04/2020 COMPARISON: NONE HISTORY: 50-year-old male with abnormal EKG. Hypertension, chest pain, difficulty breathing, palpitat ions, tobacco use, 35 pack-year history. COPD. TECHNIQUE: After the intravenous administration of 10.1 mCi Tc 99m Sestamibi - Cardiolite resting SP ECT images acquired 45 minutes post injection. The patient received 0.4mg Lexiscan, 25.6 mCi Tc 99m Sestamibi - Stress images obtained [address] injection FINDINGS: Review of stress and rest SPECT images demonstrates decreased perfusion along the inferior wall on re st images. This does not persist on stress images. Findings suggest diaphragmatic attenuation artifac t. No reversibility is identified. Gated analysis shows normal wall motion with an estimated left balwinder tricular ejection fraction of 56 %. TID is calculated at 0.94, within normal limits. IMPRESSION: No scintigraphic evidence for reversible ischemia.
== END | disposition home or self-care (01) ==
LOC: RADNMMAIN 08:06
PROVIDERS: ATTEND Family Medicine
DX: R94.31 Abnormal electrocardiogram [ECG] [EKG] (principal)
CPT/HCPCS: 93017; 78452; A9500; J2785

== ENCOUNTER 2020-05-29 14:11 | Observation (INO) | payer BC, OTHER ==
[2020-05-29] MEDS ORDERED: NITROGLYCERIN SL TABS 0.4 MG TAB SUBLINGUAL STA ×3 (14:50)
[2020-05-29] MEDS ORDERED: ASPIRIN 81 MG PO STA (14:50)
--- NOTE | 2020-05-29 14:53 | ED ---
General Adult HPI - General Chief complaint: Chest Pain Stated complaint: Chest Pain Time Seen by Provider: 05/29/20 14:21 Source: patient, RN notes reviewed Mode of arrival: wheelchair Limitations: no limitations - History of Present Illness Initial comments: Patient is a pleasant 50-year-old male presenting to the emergency Department with complaints of chest discomfort. Onset of symptoms was around 7:30 this morning. Discomfort remained steady around 7/10. Discomfort feels like tightness. There is some associated dyspnea that is significantly improved following inhaler. There was also associated sweating that has resolved. Patient does have somewhat similar symptoms previously associated with COPD. No history of previous heart problems. No leg pain or leg swelling. - Related Data Home Medications Medication Instructions Recorded Confirmed Ibuprofen [Advil] 800 mg PO TID PRN 07/05/19 10/25/19 Albuterol Inhaler (Mhu) [Ventolin 2 puff INHALATION RT-Q6H PRN 10/25/19 10/25/19 Hfa Inhaler] Previous Rx's Medication Instructions Recorded predniSONE 60 mg PO DAILY #30 tab 03/06/20 Allergies Allergy/AdvReac Type Severity Reaction Status Date / Time No Known Allergies Allergy Verified 05/29/20 17:16 Review of Systems ROS Statement: Those systems with pertinent positive or pertinent negative responses have been documented in the HPI. ROS Other: All systems not noted in ROS Statement are negative. Constitutional: Denies: fever Eyes: Denies: eye pain ENT: Denies: ear pain Respiratory: Reports: as per HPI Cardiovascular: Reports: chest pain Endocrine: Denies: fatigue Gastrointestinal: Denies: abdominal pain, nausea Genitourinary: Denies: dysuria Musculoskeletal: Denies: back pain Skin: Denies: rash Neurological: Denies: weakness Past Medical History Past Medical History: Chest Pain / Angina, COPD, GERD/Reflux, Hearing Disorder / Deafness, Hypertension Additional Past Medical History / Comment(s): Heart murmur, frequent diarrhea, daily gerd, bilateral [place]JA-wears L hearing aide. History of Any Multi-Drug Resistant Organisms: None Reported Past Surgical History: Ear Surgery, Hernia Repair Additional Past Surgical History / Comment(s): Isac fundloplication, EGD, colonoscopy, multiple bilateral ear surgeries/tubes and eardrum reconstructions. Past Anesthesia/Blood Transfusion Reactions: No Reported Reaction Additional Past Anesthesia/Blood Transfusion Reaction / Comment(s): no hx blood transfusion Past Psychological History: No Psychological Hx Reported Smoking Status: Current every day smoker Past Alcohol Use History: Occasional Past Drug Use History: Marijuana - Past Family History Son(s) Family Medical History: Diabetes Mellitus Father Family Medical History: COPD, Pneumonia General Exam Limitations: no limitations General appearance: alert, in no apparent distress Head exam: Present: normocephalic Eye exam: Present: normal appearance Neck exam: Present: normal inspection Respiratory exam: Present: normal lung sounds bilaterally. Absent: chest wall tenderness Cardiovascular Exam: Present: regular rate, normal rhythm Expanded Peripheral pulses: 2+: Radial (R), Radial (L), Posterior Tibialis (R), Posterior Tibialis (L) GI/Abdominal exam: Present: soft. Absent: tenderness Extremities exam: Present: normal inspection. Absent: pedal edema, calf tenderness Neurological exam: Present: alert Psychiatric exam: Present: normal affect, normal mood Skin exam: Present: normal color Course Vital Signs 05/29/20 05/29/20 05/29/20 14:13 14:42 14:53 Temperature 98.2 F Pulse Rate 79 83 78 Respiratory 18 17 18 Rate Blood Pressure 158/100 141/93 O2 Sat by Pulse 100 96 Oximetry 05/29/20 05/29/20 05/29/20 15:00 15:30 16:00 Temperature Pulse Rate 91 85 74 Respiratory 18 20 18 Rate Blood Pressure 141/93 127/90 127/90 O2 Sat by Pulse Oximetry 05/29/20 05/29/20 16:30 16:57 Temperature Pulse Rate 85 82 Respiratory 16 18 Rate Blood Pressure 133/87 133/87 O2 Sat by Pulse 96 Oximetry EKG Findings - EKG Comments: EKG Findings:: Normal sinus rhythm 75. [place] 118. QRS 134. QT 406. QTc 453. Right bundle branch block and normal axis. No acute ST change. Medical Decision Making - Medical Decision Making Patient reevaluated and is feeling much better. Patient and family updated on results and plan. Case was discussed in detail with Dr. Ely, who will admit his patient. - Lab Data Result diagrams: 05/29/20 14:53 05/29/20 14:53 Lab Results 05/29/20 05/29/20 05/29/20 Range/Units 14:53 14:53 14:53 WBC 7.0 (3.8-10.6) k/uL RBC 4.86 (4.30-5.90) m/uL Hgb 15.4 (13.0-17.5) gm/dL Hct 47.1 (39.0-53.0) % MCV 96.9 (80.0-100.0) fL MCH 31.7 (25.0-35.0) pg MCHC 32.7 (31.0-37.0) g/dL RDW 13.3 (11.5-15.5) % Plt Count 230 (150-450) k/uL Neutrophils % 69 % Lymphocytes % 19 % Monocytes % 7 % Eosinophils % 3 % Basophils % 1 % Neutrophils # 4.8 (1.3-7.7) k/uL Lymphocytes # 1.3 (1.0-4.8) k/uL Monocytes # 0.5 (0-1.0) k/uL Eosinophils # 0.2 (0-0.7) k/uL Basophils # 0.1 (0-0.2) k/uL PT 9.4 (9.0-12.0) sec INR 0.9 (<1.2) APTT 23.3 (22.0-30.0) sec D-Dimer 0.71 H (<0.60) mg/L FEU Sodium 136 L (137-145) mmol/L Potassium 4.8 (3.5-5.1) mmol/L Chloride 105 (98-107) mmol/L Carbon Dioxide 26 (22-30) mmol/L Anion Gap 5 mmol/L BUN 13 (9-20) mg/dL Creatinine 0.51 L (0.66-1.25) mg/dL Est GFR (CKD-EPI)AfAm >90 (>60 ml/min/1.73 sqM) Est GFR (CKD-EPI)NonAf >90 (>60 ml/min/1.73 sqM) Glucose 95 (74-99) mg/dL Calcium 9.8 (8.4-10.2) mg/dL Magnesium 1.9 (1.6-2.3) mg/dL Total Bilirubin 1.1 (0.2-1.3) mg/dL AST 48 (17-59) U/L ALT 22 (4-49) U/L Alkaline Phosphatase 134 H (38-126) U/L Troponin I (0.000-0.034) ng/mL Total Protein 8.6 H (6.3-8.2) g/dL Albumin 4.7 (3.5-5.0) g/dL 05/29/20 Range/Units 14:53 WBC (3.8-10.6) k/uL RBC (4.30-5.90) m/uL Hgb (13.0-17.5) gm/dL Hct (39.0-53.0) % MCV (80.0-100.0) fL MCH (25.0-35.0) pg MCHC (31.0-37.0) g/dL RDW (11.5-15.5) % Plt Count (150-450) k/uL Neutrophils % % Lymphocytes % % Monocytes % % Eosinophils % % Basophils % % Neutrophils # (1.3-7.7) k/uL Lymphocytes # (1.0-4.8) k/uL Monocytes # (0-1.0) k/uL Eosinophils # (0-0.7) k/uL Basophils # (0-0.2) k/uL PT (9.0-12.0) sec INR (<1.2) APTT (22.0-30.0) sec D-Dimer (<0.60) mg/L FEU Sodium (137-145) mmol/L Potassium (3.5-5.1) mmol/L Chloride (98-107) mmol/L Carbon Dioxide (22-30) mmol/L Anion Gap mmol/L BUN (9-20) mg/dL Creatinine (0.66-1.25) mg/dL Est GFR (CKD-EPI)AfAm (>60 ml/min/1.73 sqM) Est GFR (CKD-EPI)NonAf (>60 ml/min/1.73 sqM) Glucose (74-99) mg/dL Calcium (8.4-10.2) mg/dL Magnesium (1.6-2.3) mg/dL Total Bilirubin (0.2-1.3) mg/dL AST (17-59) U/L ALT (4-49) U/L Alkaline Phosphatase (38-126) U/L Troponin I <0.012 (0.000-0.034) ng/mL Total Protein (6.3-8.2) g/dL Albumin (3.5-5.0) g/dL - Radiology Data Radiology results: report reviewed (Computed tomography scan of the chest negative for pulmonary embolism. Emphysematous changes.), image reviewed (Chest x-ray shows chronic changes without acute process.) Disposition Clinical Impression: Chest pain Disposition: ADMITTED IP TO THIS HOSP Is patient prescribed a controlled substance at d/c from ED?: No Referrals: Trino Ely MD [Primary Care Provider] - 1-2 days Decision Time: 17:17
[2020-05-29 15:07] LABS: Basophils # (A) 0.1 k/uL (0-0.2); Basophils % (A) 1 %; Eosinophils # (A) 0.2 k/uL (0-0.7); Eosinophils % (A) 3 %; HCT 47.1 % (39.0-53.0); HGB 15.4 gm/dL (13.0-17.5); Lymphocytes # (A) 1.3 k/uL (1.0-4.8); Lymphocytes % (A) 19 %; MCH 31.7 pg (25.0-35.0); MCHC 32.7 g/dL (31.0-37.0); MCV 96.9 fL (80.0-100.0); Mean Platelet Volume 7.2; Monocytes # (A) 0.5 k/uL (0-1.0); Monocytes % (A) 7 %; Neutrophils # (A) 4.8 k/uL (1.3-7.7); Neutrophils % (A) 69 %; Platelet Count 230 k/uL (150-450); RBC 4.86 m/uL (4.30-5.90); RDW 13.3 % (11.5-15.5)
--- NOTE | 2020-05-29 15:10 | XR ---
EXAMINATION TYPE: XR chest 2V DATE OF EXAM: 05/29/2020 COMPARISON: Chest x-ray March 06, 2020. HISTORY: Chest pain for 2 days. TECHNIQUE: Frontal and lateral views of the chest are obtained. FINDINGS: There is chronic parenchymal changes bilaterally without suspicious new focal air space op acity or pneumothorax seen. Stable multiple tiny left pleural effusion or pleural thickening The car diac silhouette size remains within normal limits. The osseous structures are intact. IMPRESSION: Chronic changes without acute pulmonary process.
[2020-05-29 15:18] LABS: ALT 22 U/L (4-49); AST 48 U/L (17-59); African American GFR (CKD) >90 (>60 ml/min/1.73 sqM); Albumin 4.7 g/dL (3.5-5.0); Alkaline Phosphatase 134 U/L (38-126); Anion Gap 5 mmol/L; Blood Urea Nitrogen 13 mg/dL (9-20); Calcium 9.8 mg/dL (8.4-10.2); Carbon Dioxide 26 mmol/L (22-30); Chloride 105 mmol/L (98-107); Glucose 95 mg/dL (74-99); Magnesium 1.9 mg/dL (1.6-2.3); Non-African American GFR(CKD) >90 (>60 ml/min/1.73 sqM); Sodium 136 mmol/L (137-145); Total Bilirubin 1.1 mg/dL (0.2-1.3); Total Protein 8.6 g/dL (6.3-8.2)
[2020-05-29 15:20] LABS: Potassium 4.8 mmol/L (3.5-5.1)
[2020-05-29 15:25] LABS: INR 0.9 (<1.2); Partial Thromboplastin Time 23.3 sec (22.0-30.0); Prothrombin Time 9.4 sec (9.0-12.0)
[2020-05-29 15:27] LABS: D-Dimer 0.71 mg/L FEU (<0.60)
--- NOTE | 2020-05-29 16:36 | CT ---
EXAMINATION TYPE: CT angio chest DATE OF EXAM: 05/29/2020 COMPARISON: CT chest March 06, 2020 HISTORY: chest pain, sob, elevated d-dimer CT DLP: 274.6 mGycm. Automated Exposure Control for Dose Reduction was Utilized. CONTRAST: CTA scan of the thorax is performed with IV Contrast, patient injected with 80 mL of Isovue 370, pulm onary embolism protocol. MIP Images are created on CT scanner and reviewed. FINDINGS: LUNGS: [id number] underlying emphysematous change greatest in the lung apices is redemonstrated . Dependent atelectasis in the bilateral lower lobes again seen. Mild peripheral linear scarring and/ or atelectasis lateral left lung base redemonstrated. No new suspicious focal consolidation. No pleur al effusion or pneumothorax. No suspicious nodules or masses. MEDIASTINUM: Satisfactory enhancement of the aorta without aneurysm or dissection. There is satisfact ory enhancement of the pulmonary artery and its branches, there is no CT evidence for pulmonary embol ism. There are no greater than 1 cm hilar or mediastinal lymph nodes. Tiny pericardial effusion is s een. No cardiomegaly. OTHER: No additional significant abnormality is seen. IMPRESSION: No CT evidence for acute pulmonary embolism. [id number] emphysematous change withou t new suspicious acute pulmonary process.
[2020-05-29] MEDS ORDERED: NITROGLYCERIN SL TABS 0.4 MG TAB SUBLINGUAL PRN (17:17)
[2020-05-29] MEDS ORDERED: FAMOTIDINE 20 MG TAB PO PRN (21:00)
[2020-05-29] MEDS: NITROGLYCERIN OINT 1 INCH/GM PACKET TOPICAL SCH ×2 (21:03→23:20)
--- NOTE | 2020-05-29 23:29 | HP ---
HISTORY AND PHYSICAL This patient is a 50-year-old white male who came to the emergency room with some chest discomfort around 7:30 this morning time he got nitroglycerin in the hospital. He also had some sweating, which resolved. He had a CT of the chest which was negative. He has a history of COPD and nicotine addiction. No leg swelling, hemoptysis. HOME MEDICINES: Advil 800 q.i.d., albuterol inhaler, amlodipine 5 mg daily. ALLERGIES: NEGATIVE. REVIEW OF SYSTEMS: Fourteen-point review of systems negative except for mentioned in HPI. FAMILY HISTORY: Son with diabetes mellitus. Father with COPD and pneumonia. PHYSICAL EXAMINATION: Vital signs are stable. Afebrile. Blood pressure is 140s to 150s over 93 to 100. Temperature 98.2, pulse 70s to 80s, respiratory rate 16 to 18. CARDIOVASCULAR: S1, S2. LUNGS: Mild wheezes x4. HEMATOLOGY: Negative Homans. PSYCH: Fair mood and affect. NEUROLOGIC: Alert and orient x3. : No suprapubic tenderness. GI: Soft. EKG sinus rhythm, right bundle branch block. ASSESSMENT: Atypical chest pain, relieved by nitroglycerin. Will wait for Cardiology to assess him. he will have to be checked out for possible heart catheterization due to recurrent chest pain. CT of the chest rules out pulmonary embolism or any aneurysms. Please see further orders. MMODL / IJN: [id number] /
[2020-05-30 00:06] VITALS: RESP 16
[2020-05-30 03:05] LABS: Cholesterol 199 mg/dL (<200); Triglycerides 50 mg/dL (<150)
[2020-05-30 03:12] LABS: LDL Cholesterol,Calculated 70 mg/dL (0-99)
[2020-05-30 03:18] LABS: HDL Cholesterol 119 mg/dL (40-60)
[2020-05-30] MEDS: NITROGLYCERIN OINT 1 INCH/GM PACKET TOPICAL SCH ×2 (05:57→13:51)
[2020-05-30] MEDS: IPRATROPIUM 0.5 MG/2.5 ML NEBU INHALATION SCH ×3 (07:44→15:25)
[2020-05-30] MEDS ORDERED: SYMBICORT 80-4.5 MCG INHALER INHALATION SCH (08:00)
[2020-05-30 08:19] VITALS: TEMP 97.6
[2020-05-30] MEDS ORDERED: ASPIRIN 325 MG TAB PO STA (08:36)
[2020-05-30] MEDS ORDERED: NITROGLYCERIN SL TABS 0.4 MG TAB SUBLINGUAL PRN (08:36)
[2020-05-30] MEDS ORDERED: ATORVASTATIN 80 MG TAB PO STA (08:36)
[2020-05-30] MEDS ORDERED: ALPRAZolam 0.25 MG TAB PO PRN (08:36)
[2020-05-30] MEDS ORDERED: ALPRAZolam 0.5 MG TAB PO PRN (08:36)
[2020-05-30] MEDS ORDERED: SODIUM CHLORIDE 0.9% 1,000 ML in EMPTY BAG 1 BAG IV ONE (08:36)
[2020-05-30] MEDS ORDERED: ASPIRIN 325 MG TAB PO SCH (09:00)
--- NOTE | 2020-05-30 11:59 | CONS ---
CONSULTATION Mr. Donnelly is a 50-year-old male with known history of hypertension, chronic tobacco use, daily alcohol intake; who presented to the emergency room with symptoms of chest discomfort occurred at rest, substernal, tightness like. Because of that, he came into the emergency room and subsequently admitted. At the time of my evaluation, he is feeling well. The patient is relatively active physically. Denies any exertional chest discomfort but he has some dyspnea on exertion. He has history of chronic obstructive lung disease. He has been having those symptoms of chest discomfort on and off in the past and has underwent a stress test on May 04 and at that time there was no evidence of stress-induced ischemia by nuclear scanning. The patient has no radiation of the discomfort, but he has dyspnea on exertion. He denies any dizziness or palpitation. No syncope. No PND, orthopnea, and no significant peripheral edema. His coronary risk factors are remarkable for smoking. He is nondiabetic. He is hypertensive. His lipid profile is not available. MEDICATIONS: Include Norvasc 5 mg daily, fluticasone, and Pepcid. REVIEW OF SYSTEMS: RESPIRATORY system: He has history of chronic obstructive lung disease, history of dyspnea on exertion and occasional cough. GI system: No recent GI bleeding. No peptic ulcer disease. system: No dysuria or hematuria. Nervous system: No stroke or seizure. PHYSICAL EXAMINATION: A 50-year-old male, alert, oriented, no apparent distress. Blood pressure 120/70 with a heart rate in the 70s. HEAD: Normocephalic. Eyes sclerae anicteric. NECK: Good carotid upstroke. No bruit. No jugular venous distention. LUNGS: Decreased air exchange. No wheezes. HEART: Regular rate and rhythm S1, S2. No S3. No rub or gallop. ABDOMEN: Soft, nontender. Positive bowel sounds. No megaly. EXTREMITIES: No edema. Intact distal pulses. LAB DATA: Revealed troponin less than 0.012 for 3 samples, BUN and creatinine 13 and 0.5. Cholesterol of 199 with an LDL of 70, HDL of 119. Hemoglobin of 15.4. EKG revealed sinus mechanism, right bundle branch block, nonspecific ST-T wave changes. CT angiogram of the chest revealed no evidence of embolism with evidence of mild to moderate emphysema. IMPRESSION: 1. Symptoms of chest discomfort of unclear etiology in a patient with normal myocardial perfusion imaging recently. 2. History of chronic tobacco use. 3. Hypertension. RECOMMENDATIONS: In view of the persistent symptoms and recurrence, I have recommend proceeding with coronary angiography to assess his status and guide his treatment. The rationale behind the procedure, risks and complication were discussed with the patient who is in full understanding and agreement. Thank you for this consult. We will follow with you. SUSHMA / IJN: [id number] /
--- NOTE | 2020-05-30 13:12 | P.GSCN ---
History of Present Illness Consult date: 05/30/20 History of present illness: CHIEF COMPLAINT: Chest pain HISTORY OF PRESENT ILLNESS: This is a 50-year-old male with a known history of GERD, COPD, hypertension and Isac fundoplication. Patient presented to the emergency room with complaints of chest pain. His chest pain started early this morning. He also has some shortness of breath. Patient is being seen evaluated by cardiology. Patient denies any dysphagia, nausea or vomiting, bowel movement changes, fever, chills or sweats. Patient did have EGD and colonoscopy with Dr. Centeno in 10/27/2019 showing duodenitis, antral gastritis, sliding hiatal hernia and esophagitis. PAST MEDICAL HISTORY: See list. PAST SURGICAL HISTORY: See list. MEDICATIONS: See list. ALLERGIES: See list. SOCIAL HISTORY: No illicit drug use. REVIEW OF SYSTEMS: CONSTITUTIONAL: Denies fever or chills. HEENT: Denies blurred vision, vision changes, or eye pain. Denies hemoptysis CARDIOVASCULAR: Denies chest pain or pressure. RESPIRATORY: No shortness of breath. GASTROINTESTINAL: See HPI for pertinent findings HEMATOLOGIC: Denies bleeding disorders. GENITOURINARY: Denies any blood in urine or increased urinary frequency. SKIN: Denies pruitis. Denies rash. PHYSICAL EXAM: VITAL SIGNS: Reviewed GENERAL: Well-developed in no acute distress. HEENT: No sclera icterus. Extraocular movements grossly intact. Moist buccal mucosa. Head is atraumatic, normocephalic. No nasal drainage. ABDOMEN: Soft. Nontender nondistended NEUROLOGIC: Alert and oriented. Cranial nerves II through XII grossly intact. LABORATORY DATA: WBC 7.0 hemoglobin 15.4 AST 48 ALT 22 troponins negative 3 IMAGING: CTA of chest negative for PE ASSESSMENT: 1. Chest pain 2. History of previous Isac fundoplication 3. History of EGD and colonoscopy in October [address] 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 Signing provider agrees with the documented findings, assessment, and plan of care. Past Medical History Past Medical History: Chest Pain / Angina, COPD, GERD/Reflux, Hearing Disorder / Deafness, Hypertension Additional Past Medical History / Comment(s): Heart murmur, frequent diarrhea, daily gerd, bilateral [place]-wears L hearing aide. History of Any Multi-Drug Resistant Organisms: None Reported Past Surgical History: Ear Surgery, Hernia Repair Additional Past Surgical History / Comment(s): Isac fundloplication, EGD, colonoscopy, multiple bilateral ear surgeries/tubes and eardrum reconstructions. Past Anesthesia/Blood Transfusion Reactions: No Reported Reaction Additional Past Anesthesia/Blood Transfusion Reaction / Comm: no hx blood tr ansfusion Past Psychological History: No Psychological Hx Reported Additional Psychological History / Comment(s): Pt resides with his spouse. He is independent. Smoking Status: Current every day smoker Past Alcohol Use History: Occasional Additional Past Alcohol Use History / Comment(s): Pt started smoking in 1985 and smokes 1.5 ppd. He drinks 5 20 oz beers a day. Past Drug Use History: Marijuana Additional Drug Use History / Comment(s): uses marijuana occasionally - Past Family History Son(s) Family Medical History: Diabetes Mellitus Father Family Medical History: COPD, Pneumonia Medications and Allergies Home Medications Medication Instructions Recorded Confirmed Type Famotidine [Pepcid AC] 10 mg PO QID PRN 05/29/20 05/29/20 History Fluticasone/Umeclidin/Vilanter 1 puff INHALATION RT-DAILY 05/29/20 05/29/20 History [Trelegy Ellipta 100-62.5-25] amLODIPine [Norvasc] 5 mg PO DAILY@1700 05/29/20 05/29/20 History Allergies Allergy/AdvReac Type Severity Reaction Status Date / Time No Known Allergies Allergy Verified 05/29/20 17:16 Surgical - Exam Vital Signs Temp Pulse Resp BP Pulse Ox 98.2 F 79 18 158/100 100 05/29/20 14:13 05/29/20 14:13 05/29/20 14:13 05/29/20 14:13 05/29/20 14:13 Results - Labs 05/29/20 14:53 05/29/20 14:53 Abnormal Lab Results - Last 24 Hours (Table) 05/29/20 05/29/20 05/29/20 Range/Units 14:53 14:53 14:53 D-Dimer 0.71 H (<0.60) mg/L FEU Sodium 136 L (137-145) mmol/L Creatinine 0.51 L (0.66-1.25) mg/dL Alkaline Phosphatase 134 H (38-126) U/L Total Protein 8.6 H (6.3-8.2) g/dL HDL Cholesterol 119 H (40-60) mg/dL Diabetes panel 05/29/20 05/29/20 Range/Units 14:53 14:53 Sodium 136 L (137-145) mmol/L Potassium 4.8 (3.5-5.1) mmol/L Chloride 105 (98-107) mmol/L Carbon Dioxide 26 (22-30) mmol/L BUN 13 (9-20) mg/dL Creatinine 0.51 L (0.66-1.25) mg/dL Glucose 95 (74-99) mg/dL Calcium 9.8 (8.4-10.2) mg/dL AST 48 (17-59) U/L ALT 22 (4-49) U/L Alkaline Phosphatase 134 H (38-126) U/L Total Protein 8.6 H (6.3-8.2) g/dL Albumin 4.7 (3.5-5.0) g/dL Triglycerides 50 (<150) mg/dL HDL Cholesterol 119 H (40-60) mg/dL Calcium panel 05/29/20 Range/Units 14:53 Calcium 9.8 (8.4-10.2) mg/dL Albumin 4.7 (3.5-5.0) g/dL Pituitary panel 05/29/20 Range/Units 14:53 Sodium 136 L (137-145) mmol/L Potassium 4.8 (3.5-5.1) mmol/L Chloride 105 (98-107) mmol/L Carbon Dioxide 26 (22-30) mmol/L BUN 13 (9-20) mg/dL Creatinine 0.51 L (0.66-1.25) mg/dL Glucose 95 (74-99) mg/dL Calcium 9.8 (8.4-10.2) mg/dL Adrenal panel 05/29/20 Range/Units 14:53 Sodium 136 L (137-145) mmol/L Potassium 4.8 (3.5-5.1) mmol/L Chloride 105 (98-107) mmol/L Carbon Dioxide 26 (22-30) mmol/L BUN 13 (9-20) mg/dL Creatinine 0.51 L (0.66-1.25) mg/dL Glucose 95 (74-99) mg/dL Calcium 9.8 (8.4-10.2) mg/dL Total Bilirubin 1.1 (0.2-1.3) mg/dL AST 48 (17-59) U/L ALT 22 (4-49) U/L Alkaline Phosphatase 134 H (38-126) U/L Total Protein 8.6 H (6.3-8.2) g/dL Albumin 4.7 (3.5-5.0) g/dL
[2020-05-30] MEDS ORDERED: fentaNYL (PF) 50 MCG/ML 2 ML AMP IVP ONE (14:08)
[2020-05-30] MEDS ORDERED: LIDOCAINE 1% INJ 10MG/ML (20 ML MDV) SQ ONE (14:08)
[2020-05-30] MEDS ORDERED: MIDAZOLAM 2 MG/2 ML VIAL IVP ONE (14:08)
[2020-05-30] MEDS ORDERED: VERAPAMIL SYRINGE (5 MG/10 ML) INTRAARTER ONE (14:10)
[2020-05-30] MEDS ORDERED: IV FLUID CONTINUATION 1,000 ML IV ONE (14:16)
[2020-05-30] MEDS ORDERED: HEPARIN SODIUM 1,000 UN/ML (10ML VL) IV ONE (14:21)
[2020-05-30] MEDS ORDERED: IOPAMIDOL-370 125ML BTL INJ ONE (14:23)
[2020-05-30] MEDS ORDERED: RX INFO: IV CONTRAST WAS GIVEN 1 EACH MISC MISCELLANE PRN (14:28)
[2020-05-30] MEDS ORDERED: SODIUM CHLORIDE 0.9% 1,000 ML IV SCH (14:30)
[2020-05-30 15:58] VITALS: BP 131/77; PULSE 82
[2020-05-30] MEDS ORDERED: amLODIPine 5 MG TAB PO SCH (17:00)
--- NOTE | 2020-05-30 17:20 | ECHOF ---
Referral Reason: MEASUREMENTS -------- HEIGHT: 170.2 cm WEIGHT: 58.1 kg BP: 120/71 RVIDd: 3.1 cm (< 3.3) IVSd: 1.1 cm (0.6 - 1.1) LVIDd: 4.5 cm (3.9 - 5.3) LVPWd: 1.0 cm (0.6 - 1.1) IVSs: 1.6 cm LVIDs: 3.0 cm LVPWs: 1.6 cm LA Diam: 3.0 cm (2.7 - 3.8) LAESV Index (A-L): 28.99 ml/m Ao Diam: 3.4 cm (2.0 - 3.7) AV Cusp: 2.0 cm (1.5 - 2.6) MV EXCURSION: 18.547 mm (> 18.000) MV EF SLOPE: 75 mm/s (70 - 150) EPSS: 1.1 cm MV E Paul: 0.69 m/s MV DecT: 250 ms MV A Paul: 0.66 m/s MV E/A Ratio: 1.05 FINDINGS -------- Sinus rhythm. This was a technically good study. The left ventricular size is normal. There is borderline concentric left ventricular hypertrophy. Overall left ventricular systolic function is normal with, an EF between 60 - 65 %. The right ventricle is normal in size. LA is midly dilated 29-33ml/m2. The right atrium is normal in size. Interatrial and interventricular septum intact. The aortic valve is trileaflet and appears structurally normal. The mitral valve is normal. The tricuspid valve appears structurally normal. There is no pulmonic regurgitation present. The aortic root size is normal. Normal inferior vena cava with normal inspiratory collapse consistent with estimated right atrial pre ssure of 5 mmHg. There is no pericardial effusion. CONCLUSIONS -------- 1. The left ventricular size is normal. 2. There is borderline concentric left ventricular hypertrophy. 3. Overall left ventricular systolic function is normal with, an EF between 60 - 65 %. 4. LA is midly dilated 29-33ml/m2. 5. There is no pericardial effusion. CLINICAL TRIAL ASSISTANT: Samantha Knott RDCS
--- NOTE | 2020-05-30 20:44 | CC ---
CARDIAC CATHETERIZATION REPORT Mr. Donnelly is a 50-year-old male with known history of hypertension, history of chronic tobacco use, who presented with symptoms of chest discomfort, that has been going on for a while. He recently underwent a myocardial perfusion imaging that revealed no evidence of inducible ischemia. In view of the persistent symptoms and his risk factors, recommendation made regarding cardiac catheterization. The procedures, risks, and complication were discussed with the patient, who is in full understanding and agreement. PROCEDURE DETAILS: Patient was brought to manager laboratory in a fasting state after receiving fentanyl and Benadryl and achieving moderate conscious sedated state. Using Xylocaine anesthesia and Seldinger technique, a 6-Kinyarwanda sheath was introduced in the right radial artery. Selective right and left coronary angiography performed using 5-Kinyarwanda, 3.5 bend right and left Judkin's catheter. Multiple views of the coronary arteries including hemiaxial views obtained. Following that, the right Susan catheter was used to cross the aortic valve and left ventricular end-diastolic pressure was calculated. Following that, catheter and sheath were removed. Hemostasis was obtained with deployment of a TR band. There was no immediate complication patient was returned to his room in stable condition. Of note, the patient received 3500 units of intravenous heparin as well as intra-arterial verapamil. FINDINGS: LEFT MAIN: This is a short size vessel, bifurcating into left circumflex, left anterior descending artery, left main coronary artery has no evidence of high-grade stenosis. LEFT ANTERIOR DESCENDING ARTERY: This is a large-sized vessel reaching to the apex giving rise to a diagonal branch. The left anterior descending artery has mild plaque in the mid segment of 10-20% without any evidence of high-grade stenosis. LEFT CIRCUMFLEX: This is a nondominant giving rise to a large obtuse marginal branch. The left circumflex as well as branches have no evidence of obstructive coronary artery disease. RIGHT CORONARY ARTERY: This is a large dominant vessel bifurcating distally to PDA and posterolateral segment and branches. The right coronary artery has mild intimal disease in the mid segment of 10% to 20% without any evidence of high-grade stenosis. LEFT VENTRICULOGRAM: Left ventriculogram was not performed. HEMODYNAMICS: There was no gradient across the aortic valve. The left ventricular end-diastolic pressure was 12-14 mmHg. CONCLUSION: 1. 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 2. Right dominance. RECOMMENDATIONS: In view of findings and anatomy, I recommend continue medical therapy with aggressive risk modifications that are being initiated. Those findings and recommendation were discussed with the patient and his family and they are in full understanding and agreement. MMNEETAL / IJN: [id number] /
[2020-05-30] MEDS ORDERED: PANTOPRAZOLE 40 MG/10 ML VIAL IVP SCH (21:00)
--- NOTE | 2020-05-31 08:22 | CONS ---
CONSULTATION DATE OF CONSULTATION: 05/30/2020 REQUESTING PHYSICIAN: Dr. Trino Ely. REASON FOR CONSULTATION: Chest pain. HISTORY OF PRESENT ILLNESS: The patient is a 50-year-old pleasant white male with longstanding history of gastroesophageal reflux disease, hypertension, admitted to hospital with severe substernal chest tightness for the last 2-3 days' duration. While he was at home, he took some sublingual nitroglycerin and symptoms improved. He was evaluated by Cardiology and underwent a stress test 3 weeks ago that was normal. Today he underwent cardiac catheterization which revealed normal coronaries. We were hence consulted for possible EGD. The patient states that he has been having these episodes on and off for several years. He usually has gastroesophageal reflux disease. Takes Pepcid as needed. He recalls lately he has been forgetting the medications because of work hours that have changed. Today he is feeling better. The chest pain has resolved. He is presently receiving Protonix 40 mg daily. He denies any abdominal pain. No nausea, no vomiting. PAST MEDICAL HISTORY: Significant for gastroesophageal reflux disease, history of hypertension and asthma. MEDICATIONS: Medications at home are Advil, Ventolin, Pepcid. ALLERGIES: None. SOCIAL HISTORY: Chronic smoker but no alcohol use. FAMILY HISTORY: The son has diabetes mellitus and father has stable COPD. PAST SURGICAL HISTORY: Unremarkable. REVIEW OF SYSTEMS: CARDIOPULMONARY: Chest pain, improved. No shortness of breath. : No dysuria or hematuria. MUSCULOSKELETAL: Unremarkable. SKIN: Unremarkable. ENDOCRINE: Unremarkable. PSYCHIATRIC: Unremarkable. NEUROLOGY: Unremarkable. ENT/VISION: Unremarkable. CONSTITUTIONAL: No recent weight loss. No fever, chills, night sweats. PHYSICAL EXAMINATION: He appears comfortable. No apparent distress. Vital signs are stable. Blood pressure is 131/77, pulse rate 82 and afebrile. HEENT: Examination unremarkable. Conjunctivae are pink. Sclerae anicteric. Oral cavity no lesions. No JVD or lymph node enlargement. CHEST: Clear to auscultation. HEART: Regular rate and rhythm. ABDOMEN: Soft. Bowel sounds are positive. No organomegaly. EXTREMITIES: No pedal edema. NEURO: He is alert and oriented x3. No focal deficits. LABS: WBC 7, hemoglobin 15.4, platelets normal. Basic metabolic panel is within normal limits. AST, ALT, T-bilirubin, alkaline phosphatase are within normal limits. IMPRESSION: 1. Atypical chest pain on and off for the last several weeks duration. His symptoms have been significantly worse for the last 2 days and symptoms improved with sublingual nitroglycerin. He did have a cardiac evaluation done. Cardiac catheterization this morning showed normal coronaries. 2. History of longstanding history of gastroesophageal reflux disease. Takes Pepcid as needed. RECOMMENDATION: I had a lengthy discussion with the patient regarding management of his symptoms which are highly suggestive of gastroesophageal reflux. He did have an upper endoscopy by Dr. Centeno in October of this year that showed some esophagitis and gastritis as well as a small hiatal hernia. I recommend that he continue with Protonix 40 mg daily half hour before dinnertime and follow anti-reflux measures and use Pepcid only as needed. No reason to do any repeat upper endoscopy at the present time. He was briefly educated about diet modification and anti-reflux measures and advised to follow up in office in 6 weeks following discharge from the hospital. Thank you for this consultation. MMNEETAL / IJN: [id number] /
[2020-05-31] MEDS ORDERED: ASPIRIN 81 MG PO SCH (09:00)
== END 2020-05-30 18:30 | disposition home or self-care (01) ==
LOC: EC 14:11 → 3SCARD 17:17
PROVIDERS: ADMIT Family Medicine; ATTEND Family Medicine
DX: R07.89 Other chest pain (principal); F17.200 Nicotine dependence, unspecified, uncomplicated; H91.90 Unspecified hearing loss, unspecified ear; I10 Essential (primary) hypertension; J44.9 Chronic obstructive pulmonary disease, unspecified; K21.0 Gastro-esophageal reflux disease with esophagitis; K29.70 Gastritis, unspecified, without bleeding; K29.80 Duodenitis without bleeding; K44.9 Diaphragmatic hernia without obstruction or gangrene; Z79.899 Other long term (current) drug therapy; Z82.5 Family history of asthma and other chronic lower respiratory diseases; Z83.3 Family history of diabetes mellitus
CPT/HCPCS: 93005 ×2; 99285; 36415; 94640 ×2; 93306; 93458; 85379; 80061; 80053; 83735; 84484; 85025; 85610; 85730; 71046; 71275; G0378 ×2; C1769; C1894; J2250; J2001; J3010; J1644; Q9967 ×2

== ENCOUNTER 2020-11-13 02:52 | Emergency (ER) | payer BC ==
[2020-11-13 03:00] VITALS: BP 145/99; PULSE 93; RESP 18; TEMP 98.3
--- NOTE | 2020-11-13 03:43 | XR ---
EXAM: XR Left Foot Complete, 3 or More Views CLINICAL HISTORY: ITS.REASON XR Reason: pain TECHNIQUE: Frontal, lateral and oblique views of the left foot. COMPARISON: No relevant prior studies available. FINDINGS: Bones/joints: Question fracture of the distal head of the proximal phalanx of the fifth digit. No dislocation. Soft tissues: Unremarkable. No radiopaque foreign body. IMPRESSION: Question fracture of the distal head of the proximal phalanx of the fifth digit.
--- NOTE | 2020-11-13 04:54 | ED ---
Lower Extremity Injury HPI - General Chief Complaint: Extremity Injury, Lower Stated Complaint: Foot Pain Time Seen by Provider: 11/13/20 04:47 Source: patient Mode of arrival: wheelchair Limitations: no limitations - History of Present Illness Initial Comments: Patient is a 50-year-old man who was helping an associate move a heavy dresser and it was set down on his foot. Patient indicates pain to the mid foot. He has been able to bear weight but states that it does cause an increase in the pain. MD Complaint: foot injury Onset/Timin -: days(s) Injury: Foot: Left Type of Injury: blunt Severity: severe Improves With: nothing Worsens With: weight bearing Context: direct blow Associated Symptoms: swelling, able to partially bear weight - Related Data Home Medications Medication Instructions Recorded Confirmed Famotidine [Pepcid AC] 10 mg PO QID PRN 05/29/20 05/29/20 Fluticasone/Umeclidin/Vilanter 1 puff INHALATION RT-DAILY 05/29/20 05/29/20 [Trelegy Ellipta 100-62.5-25] amLODIPine [Norvasc] 5 mg PO DAILY@1700 05/29/20 05/29/20 Previous Rx's Medication Instructions Recorded Acetaminophen-Codeine 300-30mg 1 tab PO Q4H PRN #15 tablet 11/13/20 [Tylenol w/codeine #3] Allergies Allergy/AdvReac Type Severity Reaction Status Date / Time No Known Allergies Allergy Verified 11/13/20 03:01 Review of Systems ROS Statement: Those systems with pertinent positive or pertinent negative responses have been documented in the HPI. ROS Other: All systems not noted in ROS Statement are negative. Constitutional: Denies: fever, chills Musculoskeletal: Reports: as per HPI, arthralgia Skin: Denies: lesions Neurological: Denies: weakness, numbness, paresthesias Past Medical History Past Medical History: Chest Pain / Angina, COPD, GERD/Reflux, Hearing Disorder / Deafness, Hypertension Additional Past Medical History / Comment(s): Heart murmur, frequent diarrhea, daily gerd, bilateral [place]-wears L hearing aide. History of Any Multi-Drug Resistant Organisms: None Reported Past Surgical History: Ear Surgery, Hernia Repair Additional Past Surgical History / Comment(s): Isac fundloplication, EGD, colonoscopy, multiple bilateral ear surgeries/tubes and eardrum reconstructions. Past Anesthesia/Blood Transfusion Reactions: No Reported Reaction Additional Past Anesthesia/Blood Transfusion Reaction / Comment(s): no hx blood transfusion Past Psychological History: No Psychological Hx Reported Smoking Status: Current every day smoker Past Alcohol Use History: Daily Past Drug Use History: Marijuana - Past Family History Son(s) Family Medical History: Diabetes Mellitus Father Family Medical History: COPD, Pneumonia General Exam Limitations: no limitations General appearance: alert, in no apparent distress Cardiovascular Exam: Present: other (Left dorsalis pedis pulse is normal in strength. Normal capillary refill.) Extremities exam: Present: full ROM, tenderness, normal capillary refill, other (Mild swelling of the forefoot. No point tenderness. No obvious deformity.). Absent: pedal edema Neurological exam: Absent: motor sensory deficit (No sensory/motor deficit throughout the left forefoot) Skin exam: Present: warm, dry, intact, normal color. Absent: rash Course Vital Signs 11/13/20 02:55 Temperature 98.3 F Pulse Rate 93 Respiratory 18 Rate Blood Pressure 145/99 O2 Sat by Pulse 96 Oximetry Disposition Clinical Impression: Contusion of foot, left Disposition: HOME SELF-CARE Condition: Good Instructions (If sedation given, give patient instructions): Foot Contusion (ED) Prescriptions: Acetaminophen-Codeine 300-30mg [Tylenol w/codeine #3] 1 tab PO Q4H PRN #15 tablet PRN Reason: Pain Is patient prescribed a controlled substance at d/c from ED?: Yes When asked, does pt state using other controlled substances?: No If prescribed controlled substance>3 days was MAPS reviewed?: Prescribed <3 Days If opioid is for acute pain is fill amount 7 days or less?: Yes If Rx opioid, was Start Talking consent form obtained?: Yes Referrals: Trino Ely MD [Primary Care Provider] - 1-2 days
== END 2020-11-13 05:07 | disposition home or self-care (01) ==
LOC: EC 02:52
DX: S90.32XA Contusion of left foot, initial encounter (principal); F17.200 Nicotine dependence, unspecified, uncomplicated; I10 Essential (primary) hypertension; J44.9 Chronic obstructive pulmonary disease, unspecified; K21.9 Gastro-esophageal reflux disease without esophagitis; F12.90 Cannabis use, unspecified, uncomplicated; X58.XXXA Exposure to other specified factors, initial encounter
CPT/HCPCS: 99283

== ENCOUNTER 2021-02-09 21:01 | Emergency (ER) | payer BC ==
[2021-02-09 21:24] VITALS: TEMP 97.5
[2021-02-09] MEDS ORDERED: methylPREDNISolone SOD SUCCI 125 MG/2 ML VIAL IV STA (22:31)
[2021-02-09] MEDS ORDERED: ALBUTEROL NEB (CONC) 2.5 MG/0.5 ML INHALATION STA (22:31)
[2021-02-09] MEDS ORDERED: IPRATROPIUM-ALBUTEROL 3 ML NEB INHALATION STA (22:31)
[2021-02-09 22:50] LABS: Basophils # (A) 0.1 k/uL (0-0.2); Basophils % (A) 1 %; Eosinophils # (A) 0.2 k/uL (0-0.7); Eosinophils % (A) 3 %; HCT 41.5 % (39.0-53.0); Lymphocytes # (A) 2.1 k/uL (1.0-4.8); Lymphocytes % (A) 27 %; MCH 32.1 pg (25.0-35.0); MCHC 33.8 g/dL (31.0-37.0); MCV 95.2 fL (80.0-100.0); Monocytes # (A) 0.6 k/uL (0-1.0); Monocytes % (A) 8 %; Neutrophils # (A) 4.5 k/uL (1.3-7.7); Neutrophils % (A) 59 %; Platelet Count 254 k/uL (150-450); RBC 4.36 m/uL (4.30-5.90); RDW 12.6 % (11.5-15.5); WBC 7.7 k/uL (3.8-10.6)
[2021-02-09 22:58] LABS: INR 0.9 (<1.2); Partial Thromboplastin Time 22.7 sec (22.0-30.0); Prothrombin Time 9.4 sec (9.0-12.0)
--- NOTE | 2021-02-09 22:59 | XR ---
EXAMINATION TYPE: XR chest 2V DATE OF EXAM: 02/09/2021 COMPARISON: 05/29/2020 HISTORY: Difficulty breathing TECHNIQUE: 2 views FINDINGS: Heart and mediastinum are normal. Lungs are clear of infiltrate. There is no heart failure. There are chest leads. Costophrenic angles are clear. Bony thorax appears intact. IMPRESSION: No active cardiopulmonary disease. Normal heart. No change.
[2021-02-09 23:19] LABS: ALT 15 U/L (4-49); AST 27 U/L (17-59); African American GFR (CKD) >90 (>60 ml/min/1.73 sqM); Albumin 4.2 g/dL (3.5-5.0); Alkaline Phosphatase 103 U/L (38-126); Anion Gap 12 mmol/L; Blood Urea Nitrogen 10 mg/dL (9-20); Calcium 9.4 mg/dL (8.4-10.2); Carbon Dioxide 24 mmol/L (22-30); Chloride 98 mmol/L (98-107); Glucose 83 mg/dL (74-99); Non-African American GFR(CKD) >90 (>60 ml/min/1.73 sqM); Potassium 3.4 mmol/L (3.5-5.1); Sodium 134 mmol/L (137-145); Total Bilirubin 0.2 mg/dL (0.2-1.3); Total Protein 7.5 g/dL (6.3-8.2)
[2021-02-09] MEDS ORDERED: POTASSIUM CHLORIDE ER 20 MEQ TAB.ER PO STA (23:54)
[2021-02-09] MEDS ORDERED: AZITHROMYCIN 500 MG TAB PO STA (23:57)
[2021-02-09] MEDS ORDERED: guaiFENesin-DM 600/30MG 1 EACH TAB.ER.12H PO STA (23:57)
--- NOTE | 2021-02-09 23:57 | ED ---
General Adult HPI - General Chief complaint: Shortness of Breath Stated complaint: Diff Breathing,Flank Pain Time Seen by Provider: 02/09/21 21:34 Source: patient Mode of arrival: wheelchair Limitations: no limitations - History of Present Illness Initial comments: 50 year-old male patient with history of COPD presents to the emergency department for evaluation of shortness of breath that started around 0300. He states he has had increase in coughing with green sputum production. Reports wheezing. Denies any chest pain or tightness. Denies fever or chills. Denies any racing heart or palpitations. States he did his Trelogy inhaler. Did not have any other breathing treatments or inhalers. Patient denies any recent rash, abdominal pain, nausea, vomiting, diarrhea, constipation, back pain, numbness, tingling, dizziness, weakness, hematuria, dysuria, urinary urgency, urinary frequency, headache, visual changes, or any other complaints. - Related Data Home Medications Medication Instructions Recorded Confirmed Famotidine [Pepcid AC] 10 mg PO QID PRN 05/29/20 05/29/20 Fluticasone/Umeclidin/Vilanter 1 puff INHALATION RT-DAILY 05/29/20 05/29/20 [Trelegy Ellipta 100-62.5-25] amLODIPine [Norvasc] 5 mg PO DAILY@1700 05/29/20 05/29/20 Previous Rx's Medication Instructions Recorded Acetaminophen-Codeine 300-30mg 1 tab PO Q4H PRN #15 tablet 11/13/20 [Tylenol w/codeine #3] Azithromycin [Zithromax Z-pack (6 0 mg PO DIRECTED #6 tab 02/09/21 tabs)] guaiFENesin-DM 600/30MG [Mucinex 1 each PO Q12HR #10 tab.er.12h 02/09/21 Dm] predniSONE 50 mg PO DAILY #5 tablet 02/09/21 Allergies Allergy/AdvReac Type Severity Reaction Status Date / Time No Known Allergies Allergy Verified 02/09/21 21:23 Review of Systems ROS Statement: Those systems with pertinent positive or pertinent negative responses have been documented in the HPI. ROS Other: All systems not noted in ROS Statement are negative. Past Medical History Past Medical History: Chest Pain / Angina, COPD, GERD/Reflux, Hearing Disorder / Deafness, Hypertension Additional Past Medical History / Comment(s): Heart murmur, frequent diarrhea, daily gerd, bilateral [place]-wears L hearing aide. History of Any Multi-Drug Resistant Organisms: None Reported Past Surgical History: Ear Surgery, Hernia Repair Additional Past Surgical History / Comment(s): Isac fundloplication, EGD, colonoscopy, multiple bilateral ear surgeries/tubes and eardrum reconstructions. Past Anesthesia/Blood Transfusion Reactions: No Reported Reaction Additional Past Anesthesia/Blood Transfusion Reaction / Comment(s): no hx blood transfusion Past Psychological History: No Psychological Hx Reported Smoking Status: Current every day smoker Past Alcohol Use History: Daily Past Drug Use History: Marijuana - Past Family History Son(s) Family Medical History: Diabetes Mellitus Father Family Medical History: COPD, Pneumonia General Exam Limitations: no limitations General appearance: alert, in no apparent distress, other (Social well- developed, well-nourished adult male patient in no acute distress. Vital signs upon presentation temperature 97.5F, pulse 78, respirations 20, blood pressure 131/94, pulse ox 97% on room air.) Eye exam: Present: normal appearance, PERRL, EOMI. Absent: scleral icterus, conjunctival injection, periorbital swelling ENT exam: Present: normal exam, normal oropharynx, mucous membranes moist Respiratory exam: Present: normal lung sounds bilaterally, wheezes (Upper lung judd posteriorly). Absent: respiratory distress, rales, rhonchi, stridor Cardiovascular Exam: Present: regular rate, normal rhythm, normal heart sounds. Absent: systolic murmur, diastolic murmur, rubs, gallop, clicks GI/Abdominal exam: Present: soft, normal bowel sounds. Absent: distended, tenderness, guarding, rebound, rigid Neurological exam: Present: alert, oriented X3, CN II-XII intact Psychiatric exam: Present: normal affect, normal mood Skin exam: Present: warm, dry, intact, normal color. Absent: rash Course Vital Signs 02/09/21 02/09/21 02/09/21 21:19 22:46 23:33 Temperature 97.5 F L Pulse Rate 78 84 73 Respiratory 20 18 Rate Blood Pressure 131/94 124/91 O2 Sat by Pulse 97 97 Oximetry 02/09/21 02/10/21 23:53 00:30 Temperature Pulse Rate 76 80 Respiratory 16 Rate Blood Pressure 121/88 O2 Sat by Pulse 98 Oximetry Medical Decision Making - Medical Decision Making 50-year-old male patient presents to the emergency department today for evaluation of shortness of breath and wheezing. Also reporting cough and sputum production. Physical examination did reveal some expiratory wheezing in the upper posterior lung judd. Oxygen saturation 97% on arrival. Chest x-ray is negative. Labs unremarkable. EKG is unremarkable. Patient does report improvement in symptoms after receiving IV steroids and a 5 mg albuterol with Atrovent breathing treatment. He does still couple being discharged home at this time with a course of steroids, Mucinex, and a azithromycin. 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 Return parameters were discussed in detail. He verbalizes understanding and agrees with this plan. Case discussed with my attending Dr. Dumont. - Lab Data Result diagrams: 02/09/21 22:40 02/09/21 22:40 Lab Results 02/09/21 02/09/21 02/09/21 Range/Units 22:40 22:40 22:40 WBC 7.7 (3.8-10.6) k/uL RBC 4.36 (4.30-5.90) m/uL Hgb 14.0 (13.0-17.5) gm/dL Hct 41.5 (39.0-53.0) % MCV 95.2 (80.0-100.0) fL MCH 32.1 (25.0-35.0) pg MCHC 33.8 (31.0-37.0) g/dL RDW 12.6 (11.5-15.5) % Plt Count 254 (150-450) k/uL MPV 7.0 Neutrophils % 59 % Lymphocytes % 27 % Monocytes % 8 % Eosinophils % 3 % Basophils % 1 % Neutrophils # 4.5 (1.3-7.7) k/uL Lymphocytes # 2.1 (1.0-4.8) k/uL Monocytes # 0.6 (0-1.0) k/uL Eosinophils # 0.2 (0-0.7) k/uL Basophils # 0.1 (0-0.2) k/uL PT 9.4 (9.0-12.0) sec INR 0.9 (<1.2) APTT 22.7 (22.0-30.0) sec Sodium 134 L (137-145) mmol/L Potassium 3.4 L (3.5-5.1) mmol/L Chloride 98 (98-107) mmol/L Carbon Dioxide 24 (22-30) mmol/L Anion Gap 12 mmol/L BUN 10 (9-20) mg/dL Creatinine 0.51 L (0.66-1.25) mg/dL Est GFR (CKD-EPI)AfAm >90 (>60 ml/min/1.73 sqM) Est GFR (CKD-EPI)NonAf >90 (>60 ml/min/1.73 sqM) Glucose 83 (74-99) mg/dL Plasma Lactic Acid Alexander (0.7-2.0) mmol/L Calcium 9.4 (8.4-10.2) mg/dL Total Bilirubin 0.2 (0.2-1.3) mg/dL AST 27 (17-59) U/L ALT 15 (4-49) U/L Alkaline Phosphatase 103 (38-126) U/L Troponin I (0.000-0.034) ng/mL Total Protein 7.5 (6.3-8.2) g/dL Albumin 4.2 (3.5-5.0) g/dL 02/09/21 02/09/21 Range/Units 22:40 22:40 WBC (3.8-10.6) k/uL RBC (4.30-5.90) m/uL Hgb (13.0-17.5) gm/dL Hct (39.0-53.0) % MCV (80.0-100.0) fL MCH (25.0-35.0) pg MCHC (31.0-37.0) g/dL RDW (11.5-15.5) % Plt Count (150-450) k/uL MPV Neutrophils % % Lymphocytes % % Monocytes % % Eosinophils % % Basophils % % Neutrophils # (1.3-7.7) k/uL Lymphocytes # (1.0-4.8) k/uL Monocytes # (0-1.0) k/uL Eosinophils # (0-0.7) k/uL Basophils # (0-0.2) k/uL PT (9.0-12.0) sec INR (<1.2) APTT (22.0-30.0) sec Sodium (137-145) mmol/L Potassium (3.5-5.1) mmol/L Chloride (98-107) mmol/L Carbon Dioxide (22-30) mmol/L Anion Gap mmol/L BUN (9-20) mg/dL Creatinine (0.66-1.25) mg/dL Est GFR (CKD-EPI)AfAm (>60 ml/min/1.73 sqM) Est GFR (CKD-EPI)NonAf (>60 ml/min/1.73 sqM) Glucose (74-99) mg/dL Plasma Lactic Acid Alexander 1.5 (0.7-2.0) mmol/L Calcium (8.4-10.2) mg/dL Total Bilirubin (0.2-1.3) mg/dL AST (17-59) U/L ALT (4-49) U/L Alkaline Phosphatase (38-126) U/L Troponin I <0.012 (0.000-0.034) ng/mL Total Protein (6.3-8.2) g/dL Albumin (3.5-5.0) g/dL - EKG Data -: EKG Interpreted by [facility] EKG Comments: EKG obtained at 2150 shows normal sinus rhythm with a right bundle branch block. Ventricular rate is 74, MA interval 114, QRS duration 132, QT 406, QTc 450. Right bundle branch block is present on previous EKGs. - Radiology Data Radiology results: report reviewed, image reviewed Two-view x-ray of the chest is obtained. Report was reviewed in its entirety. Impression by Dr. Zurita shows no active cardiopulmonary disease. Normal heart. No change. Disposition Clinical Impression: COPD exacerbation Disposition: HOME SELF-CARE Condition: Good Instructions (If sedation given, give patient instructions): COPD (Chronic Obstructive Pulmonary Disease) (ED) Additional Instructions: Take medications as directed. Follow-up with her primary care physician for recheck in 1-2 days. Return for any new, worsening, or concerning symptoms. Prescriptions: guaiFENesin-DM 600/30MG [Mucinex Dm] 1 each PO Q12HR #10 tab.er.12h predniSONE 50 mg PO DAILY #5 tablet Azithromycin [Zithromax Z-pack (6 tabs)] 0 mg PO DIRECTED #6 tab Is patient prescribed a controlled substance at d/c from ED?: No Referrals: Trino Ely MD [Primary Care Provider] - 1-2 days Time of Disposition: 23:57
[2021-02-10 00:40] VITALS: BP 121/88; PULSE 80; RESP 16
== END 2021-02-10 00:30 | disposition home or self-care (01) ==
LOC: EC 21:01
DX: J44.1 Chronic obstructive pulmonary disease with (acute) exacerbation (principal); H91.93 Unspecified hearing loss, bilateral; K21.9 Gastro-esophageal reflux disease without esophagitis; I10 Essential (primary) hypertension; F17.200 Nicotine dependence, unspecified, uncomplicated; Z79.51 Long term (current) use of inhaled steroids; Z79.2 Long term (current) use of antibiotics; Z79.899 Other long term (current) drug therapy
CPT/HCPCS: 99285; 96374; 36415; 94640; 80053; 83605; 84484; 85025; 85610; 85730; 71046; J2930

== ENCOUNTER 2021-04-19 20:59 | Emergency (ER) | payer BC ==
[2021-04-19 21:25] VITALS: RESP 16; TEMP 98.1
[2021-04-19] MEDS ORDERED: ORPHENADRINE 30 MG/ML 2 ML VIAL IM STA (23:09)
[2021-04-19] MEDS ORDERED: MORPHINE SULFATE 4 MG/ML SYRINGE IM STA (23:09)
[2021-04-19] MEDS ORDERED: LIDOCAINE 5% PATCH TOPICAL STA (23:11)
--- NOTE | 2021-04-19 23:12 | ED ---
Back Pain HPI - General Chief Complaint: Back Pain/Injury Stated Complaint: Fall/Back pain Time Seen by Provider: 04/19/21 22:33 Source: patient, family Limitations: physical limitation - History of Present Illness Initial Comments: 51-year-old male patient presents the emergency department today for evaluation of right low back pain with radiation down the right leg. Patient states symptoms started about 3 weeks ago and have been worsening. He did see his primary care physician who diagnosed him with a pinched nerve. States he started him on steroids. Patient states that he has pain to the right buttock, states it radiates down the leg to about knee level. Patient states he feels that his foot is cold and tingly. He states when he rubs his right groin seems to make the pain better. He denies any loss of bowel or bladder control. Denies saddle anesthesia. Denies any swelling or discoloration to the leg. Denies any known injury. States he did have 2 falls today due to the pain but did not injure anything. Denies hitting his head or losing consciousness. Denies any neck pain. States he has had Tylenol codeine home and doesn't seem to be helping and it does make him nauseous. Patient denies any recent rash, fever, chills, cough, shortness of breath, chest pain, abdominal pain, nausea, vomiting, diarrhea, constipation, dizziness, weakness, hematuria, dysuria, urinary urgency, urinary frequency, headache, visual changes, or any other complaints. - Related Data Home Medications Medication Instructions Recorded Confirmed Famotidine [Pepcid AC] 10 mg PO QID PRN 05/29/20 05/29/20 Fluticasone/Umeclidin/Vilanter 1 puff INHALATION RT-DAILY 05/29/20 05/29/20 [Trelegy Ellipta 100-62.5-25] amLODIPine [Norvasc] 5 mg PO DAILY@1700 05/29/20 05/29/20 Previous Rx's Medication Instructions Recorded Acetaminophen-Codeine 300-30mg 1 tab PO Q4H PRN #15 tablet 11/13/20 [Tylenol w/codeine #3] Azithromycin [Zithromax Z-pack (6 0 mg PO DIRECTED #6 tab 02/09/21 tabs)] guaiFENesin-DM 600/30MG [Mucinex 1 each PO Q12HR #10 tab.er.12h 02/09/21 Dm] predniSONE 50 mg PO DAILY #5 tablet 02/09/21 Lidocaine 5% Patch [Lidoderm] 1 patch TOPICAL DAILY #20 patch 04/19/21 Orphenadrine [Norflex] 100 mg PO Q12H PRN #20 tablet.er 04/19/21 Allergies Allergy/AdvReac Type Severity Reaction Status Date / Time No Known Allergies Allergy Verified 04/19/21 21:20 Review of Systems ROS Statement: Those systems with pertinent positive or pertinent negative responses have been documented in the HPI. ROS Other: All systems not noted in ROS Statement are negative. Past Medical History Past Medical History: Chest Pain / Angina, COPD, GERD/Reflux, Hearing Disorder / Deafness, Hypertension Additional Past Medical History / Comment(s): Heart murmur, frequent diarrhea, daily gerd, bilateral [place]-wears L hearing aide. History of Any Multi-Drug Resistant Organisms: None Reported Past Surgical History: Ear Surgery, Hernia Repair Additional Past Surgical History / Comment(s): Isac fundloplication, EGD, colonoscopy, multiple bilateral ear surgeries/tubes and eardrum reconstructions. Past Anesthesia/Blood Transfusion Reactions: No Reported Reaction Additional Past Anesthesia/Blood Transfusion Reaction / Comment(s): no hx blood transfusion Past Psychological History: No Psychological Hx Reported Smoking Status: Current every day smoker Past Alcohol Use History: Daily Past Drug Use History: Marijuana - Past Family History Son(s) Family Medical History: Diabetes Mellitus Father Family Medical History: COPD, Pneumonia General Exam Limitations: physical limitation General appearance: alert, in no apparent distress, other (This is a well developed, well nourished adult male patient in no acute distress. V/S upon presentation are temperature 98.1, pulse 83, resp 16, BP 129/87, pulse ox 97%. ) Eye exam: Present: normal appearance, PERRL, EOMI. Absent: scleral icterus, conjunctival injection, periorbital swelling ENT exam: Present: normal exam, normal oropharynx, mucous membranes moist Respiratory exam: Present: normal lung sounds bilaterally. Absent: respiratory distress, wheezes, rales, rhonchi, stridor Cardiovascular Exam: Present: regular rate, normal rhythm, normal heart sounds. Absent: systolic murmur, diastolic murmur, rubs, gallop, clicks GI/Abdominal exam: Present: soft, normal bowel sounds. Absent: distended, tenderness, guarding, rebound, rigid Extremities exam: Present: normal inspection, full ROM, normal capillary refill, other (Skin to the lower extremity is pink, warm, dry. Cap refill less than 3 seconds. Feet are equal in temperature and warm. Pedal and posttibial pulses are 2+). Absent: tenderness, pedal edema, joint swelling, calf tenderness Back exam: Present: normal inspection. Absent: paraspinal tenderness, vertebral tenderness Neurological exam: Present: alert, oriented X3, CN II-XII intact Psychiatric exam: Present: normal affect, normal mood Skin exam: Present: warm, dry, intact, normal color. Absent: rash Course Vital Signs 04/19/21 04/19/21 21:20 23:30 Temperature 98.1 F Pulse Rate 83 81 Respiratory 16 16 Rate Blood Pressure 129/87 118/81 O2 Sat by Pulse 97 98 Oximetry Medical Decision Making - Medical Decision Making 51-year-old male patient presents to the emergency department for evaluation of right low back pain with radiation down the right leg. He is neurovascularly and neurologically intact. No focal deficits. No concerning symptoms for cauda equina. Vital signs are unremarkable. He will be discharged with Lidoderm patch and muscle relaxer. He is instructed to follow-up with his primary care physician for recheck in 1-2 days. Return parameters were discussed in detail. He verbalizes understanding and agrees with this plan. My attending is Dr. Cole. Disposition Clinical Impression: Lumbar radiculopathy Disposition: HOME SELF-CARE Condition: Good Instructions (If sedation given, give patient instructions): Lumbar Radiculopathy (ED) Additional Instructions: Take medications as directed. Follow up with ecmo specialist for further evaluation as soon as possible. Return to the emergency department for any new, worsening, or concerning symptoms. Prescriptions: Lidocaine 5% Patch [Lidoderm] 1 patch TOPICAL DAILY #20 patch Orphenadrine [Norflex] 100 mg PO Q12H PRN #20 tablet.er PRN Reason: Back pain Is patient prescribed a controlled substance at d/c from ED?: No Referrals: Trino Ely MD [Primary Care Provider] - 1-2 days Time of Disposition: 23:12
[2021-04-19 23:37] VITALS: BP 118/81; PULSE 81
== END 2021-04-19 23:30 | disposition home or self-care (01) ==
LOC: EC 20:59
DX: M54.16 Radiculopathy, lumbar region (principal); F17.200 Nicotine dependence, unspecified, uncomplicated; J44.9 Chronic obstructive pulmonary disease, unspecified; I10 Essential (primary) hypertension; K21.9 Gastro-esophageal reflux disease without esophagitis; Z79.899 Other long term (current) drug therapy
CPT/HCPCS: 99283; 96372; J2270; J2360

== ENCOUNTER → 2021-05-09 | Outpatient (CLI) | payer BC ==
--- NOTE | 2021-05-09 10:34 | XR ---
EXAMINATION TYPE: XR lumbar spine 2 or 3V DATE OF EXAM: 05/09/2021 CLINICAL HISTORY: pain TECHNIQUE: Three views of the lumbar spine are submitted. COMPARISON: None. FINDINGS: There are 5 lumbar type vertebral bodies identified. The lumbar spine shows satisfactory alignment w ithout evidence of acute fracture or dislocation. Vertebral body heights are within normal limits. Moderate multilevel degenerative disc space narrowing and spondylosis. The overlying soft tissue ignacio ears unremarkable. IMPRESSION: No acute fracture or dislocation is seen in the lumbar spine. ICD 10 NO FRACTURE, INITIAL EVALUATION
== END | disposition home or self-care (01) ==
LOC: RADXRMAIN 09:41
PROVIDERS: ATTEND Family Medicine
DX: M54.5 Low back pain (principal)
CPT/HCPCS: 72100

== ENCOUNTER 2021-06-03 21:21 | Emergency (ER) | payer BC ==
[2021-06-03 21:36] VITALS: BP 147/98; PULSE 93; RESP 18; TEMP 97.4
--- NOTE | 2021-06-03 22:35 | CT ---
EXAMINATION TYPE: CT brain cspine wo con DATE OF EXAM: 06/03/2021 COMPARISON: CT brain 03/15/2018 HISTORY: Fall injury CT DLP: 1322 mGycm Automated exposure control for dose reduction was used. Ventricles have normal size. There is no mass effect nor midline shift. There is no sign of intracran ial hemorrhage. The calvarium is intact. There is no evidence of cerebral edema. There is normal alignment of the cervical vertebra. There is mild disc space narrowing and spur forma tion. Posterior elements are intact. Facet joints are intact. Prevertebral soft tissues are intact. IMPRESSION: Mild multilevel cervical spondylotic changes. No fracture. Negative CT scan of the brain. Brain not changed compared to old exam.
--- NOTE | 2021-06-03 22:45 | ED ---
Fall HPI - General Chief Complaint: Fall Stated Complaint: fall 2 days ago Time Seen by Provider: 06/03/21 21:45 Source: patient Mode of arrival: ambulatory - History of Present Illness Initial Comments: This patient is a 51-year-old man who presents to have evaluation for a head injury. The patient states that on Friday night he was drinking with his cousin. He went in to use the bathroom and then states that he must of fallen and struck his head on the bathtub. 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 Witnessed: no Place Fall Occurred: home Loss of Consciousness: yes Prolonged Down Time?: no Symptoms Prior to Fall: none Location: head, neck Severity: moderate Quality: aching Context: alcohol use Associated Symptoms: headache, neck pain - Related Data Home Medications Medication Instructions Recorded Confirmed Famotidine [Pepcid AC] 10 mg PO QID PRN 05/29/20 05/29/20 Fluticasone/Umeclidin/Vilanter 1 puff INHALATION RT-DAILY 05/29/20 05/29/20 [Trelegy Ellipta 100-62.5-25] amLODIPine [Norvasc] 5 mg PO DAILY@1700 05/29/20 05/29/20 Previous Rx's Medication Instructions Recorded Acetaminophen-Codeine 300-30mg 1 tab PO Q4H PRN #15 tablet 11/13/20 [Tylenol w/codeine #3] Azithromycin [Zithromax Z-pack (6 0 mg PO DIRECTED #6 tab 02/09/21 tabs)] guaiFENesin-DM 600/30MG [Mucinex 1 each PO Q12HR #10 tab.er.12h 02/09/21 Dm] predniSONE 50 mg PO DAILY #5 tablet 02/09/21 Lidocaine 5% Patch [Lidoderm] 1 patch TOPICAL DAILY #20 patch 04/19/21 Orphenadrine [Norflex] 100 mg PO Q12H PRN #20 tablet.er 04/19/21 Ibuprofen [Motrin] 600 mg PO Q8HR PRN #20 tab 06/03/21 Methocarbamol [Robaxin-750] 750 mg PO TID PRN #30 tablet 06/03/21 Allergies Allergy/AdvReac Type Severity Reaction Status Date / Time No Known Allergies Allergy Verified 06/03/21 21:36 Review of Systems ROS Statement: Those systems with pertinent positive or pertinent negative responses have been documented in the HPI. ROS Other: All systems not noted in ROS Statement are negative. Past Medical History Past Medical History: Chest Pain / Angina, COPD, GERD/Reflux, Hearing Disorder / Deafness, Hypertension Additional Past Medical History / Comment(s): Heart murmur, frequent diarrhea, daily gerd, bilateral [place]-wears L hearing aide. History of Any Multi-Drug Resistant Organisms: None Reported Past Surgical History: Ear Surgery, Hernia Repair Additional Past Surgical History / Comment(s): Isac fundloplication, EGD, colonoscopy, multiple bilateral ear surgeries/tubes and eardrum reconstructions. Past Anesthesia/Blood Transfusion Reactions: No Reported Reaction Additional Past Anesthesia/Blood Transfusion Reaction / Comment(s): no hx blood transfusion Past Psychological History: No Psychological Hx Reported Smoking Status: Current every day smoker Past Alcohol Use History: Daily Past Drug Use History: Marijuana - Past Family History Son(s) Family Medical History: Diabetes Mellitus Father Family Medical History: COPD, Pneumonia General Exam Limitations: no limitations Course Vital Signs 06/03/21 21:33 Temperature 97.4 F L Pulse Rate 93 Respiratory 18 Rate Blood Pressure 147/98 O2 Sat by Pulse 96 Oximetry Disposition Clinical Impression: Fall, Head injury Disposition: HOME SELF-CARE Condition: Good Instructions (If sedation given, give patient instructions): Fall Prevention (ED), Head Injury (ED) Prescriptions: Ibuprofen [Motrin] 600 mg PO Q8HR PRN #20 tab PRN Reason: Pain Methocarbamol [Robaxin-750] 750 mg PO TID PRN #30 tablet PRN Reason: pain Is patient prescribed a controlled substance at d/c from ED?: No Referrals: Trino Ely MD [Primary Care Provider] - 1-2 days
== END 2021-06-04 00:19 | disposition home or self-care (01) ==
LOC: EC 21:21
DX: S09.90XA Unspecified injury of head, initial encounter (principal); F17.200 Nicotine dependence, unspecified, uncomplicated; J44.9 Chronic obstructive pulmonary disease, unspecified; I10 Essential (primary) hypertension; K21.9 Gastro-esophageal reflux disease without esophagitis; Z79.899 Other long term (current) drug therapy; Z79.51 Long term (current) use of inhaled steroids; W01.198A Fall on same level from slipping, tripping and stumbling with subsequent striking against other object, initial encounter; Y92.002 Bathroom of unspecified non-institutional (private) residence as the place of occurrence of the external cause
CPT/HCPCS: 70450; 72125; 99284

== ENCOUNTER 2022-04-02 23:01 | Emergency (ER) | payer BC, OTHER ==
[2022-04-02 23:09] VITALS: BP 138/85; PULSE 90; RESP 16; TEMP 97.5
--- NOTE | 2022-04-03 00:29 | ED ---
General Adult HPI - General Chief complaint: ENT Stated complaint: Right side facial swelling Time Seen by Provider: 04/02/22 23:49 Source: patient, RN notes reviewed Mode of arrival: ambulatory - History of Present Illness Initial comments: 51-year-old male presents to the emergency department for evaluation of right- sided facial pain and swelling, onset yesterday and worsening today. Patient states this is a recurrent issue for him though is worse than usual today. States he was told he would have to have surgery on a gland, but has never followed up. Denies any aggravating or alleviating factors. Did not take anything to treat his discomfort prior to arrival. Denies fever, chills, headache, difficulty swallowing, sore throat, chest pain, shortness of breath, abdominal pain, nausea, vomiting, diarrhea, or dysuria. - Related Data Home Medications Medication Instructions Recorded Confirmed Famotidine [Pepcid AC] 10 mg PO QID PRN 05/29/20 05/29/20 Fluticasone/Umeclidin/Vilanter 1 puff INHALATION RT-DAILY 05/29/20 05/29/20 [Trelegy Ellipta 100-62.5-25] amLODIPine [Norvasc] 5 mg PO DAILY@1700 05/29/20 05/29/20 Previous Rx's Medication Instructions Recorded Acetaminophen-Codeine 300-30mg 1 tab PO Q4H PRN #15 tablet 11/13/20 [Tylenol w/codeine #3] Azithromycin [Zithromax Z-pack (6 0 mg PO DIRECTED #6 tab 02/09/21 tabs)] guaiFENesin-DM 600/30MG [Mucinex 1 each PO Q12HR #10 tab.er.12h 02/09/21 Dm] predniSONE 50 mg PO DAILY #5 tablet 02/09/21 Lidocaine 5% Patch [Lidoderm] 1 patch TOPICAL DAILY #20 patch 04/19/21 Orphenadrine [Norflex] 100 mg PO Q12H PRN #20 tablet.er 04/19/21 Ibuprofen [Motrin] 600 mg PO Q8HR PRN #20 tab 06/03/21 methocarbamoL [Robaxin-750] 750 mg PO TID PRN #30 tablet 06/03/21 Amoxic-Pot Clav 875-125Mg 1 tab PO Q12HR 5 Days #10 tab 04/03/22 [Augmentin [id number]] Allergies Allergy/AdvReac Type Severity Reaction Status Date / Time No Known Allergies Allergy Verified 04/02/22 23:09 Review of Systems ROS Statement: Those systems with pertinent positive or pertinent negative responses have been documented in the HPI. ROS Other: All systems not noted in ROS Statement are negative. Past Medical History Past Medical History: Chest Pain / Angina, COPD, GERD/Reflux, Hearing Disorder / Deafness, Hypertension Additional Past Medical History / Comment(s): Heart murmur, frequent diarrhea, daily gerd, bilateral [place]-wears L hearing aide. History of Any Multi-Drug Resistant Organisms: None Reported Past Surgical History: Ear Surgery, Hernia Repair Additional Past Surgical History / Comment(s): Isac fundloplication, EGD, colonoscopy, multiple bilateral ear surgeries/tubes and eardrum reconstructions. Past Anesthesia/Blood Transfusion Reactions: No Reported Reaction Additional Past Anesthesia/Blood Transfusion Reaction / Comment(s): no hx blood transfusion Past Psychological History: No Psychological Hx Reported Smoking Status: Current every day smoker Past Alcohol Use History: Daily Past Drug Use History: Marijuana - Past Family History Son(s) Family Medical History: Diabetes Mellitus Father Family Medical History: COPD, Pneumonia General Exam Limitations: no limitations (Well-developed, well-nourished female in no acute distress. Initial temperature 97.5, pulse 90, respirations 16, blood pressure 130/85, pulse ox 95% on room air.) General appearance: alert, in no apparent distress, anxious ENT exam: Present: normal oropharynx, mucous membranes moist, other (Localized area of swelling along the right mandible near TMJ; site is soft and mildly tender) Expanded Ear exam: Present: normal external inspection, other (Artificial left tympanic membrane) Mouth exam: Present: tongue normal. Absent: trismus, muffled voice Throat exam: normal inspection Respiratory exam: Present: normal lung sounds bilaterally. Absent: respiratory distress, wheezes, rales, rhonchi, stridor Cardiovascular Exam: Present: regular rate, normal rhythm, normal heart sounds. Absent: systolic murmur, diastolic murmur, rubs, gallop, clicks GI/Abdominal exam: Present: soft, normal bowel sounds. Absent: distended, tenderness, guarding, rebound, rigid Neurological exam: Present: alert, oriented X3, CN II-XII intact Psychiatric exam: Present: anxious Course Vital Signs 04/02/22 23:05 Temperature 97.5 F L Pulse Rate 90 Respiratory 16 Rate Blood Pressure 138/85 O2 Sat by Pulse 95 Oximetry Medical Decision Making - Medical Decision Making 51-year-old male with a previous history of Parotitis assents to the emergency department for evaluation of right-sided facial swelling. Upon exam, there is mild swelling localized along the right mandible near the TMJ. No trismus. Patient is afebrile. Reports that this is a recurrent issue for which he has not sought follow-up care. Patient was given [place] for pain with some improvem ent. Discussed antibiotic therapy, patient reports that this was beneficial previously. He is instructed to follow up with ENT as soon as possible. Return parameters were discussed in detail. Patient verbalizes understanding and agrees with this plan. Attending: Tim Palacios Clinical Impression: Infectious parotitis Disposition: HOME SELF-CARE Condition: Stable Instructions (If sedation given, give patient instructions): Parotid Duct Obstruction (ED), Sialoadenitis (ED) Additional Instructions: Take Motrin if needed for discomfort. Follow-up with ENT as soon as possible. Return to the emergency department with any new, worsening, or concerning symptoms. Prescriptions: Amoxic-Pot Clav 875-125Mg [Augmentin 875-125] 1 tab PO Q12HR 5 Days #10 tab Is patient prescribed a controlled substance at d/c from ED?: No Referrals: Trino Ely MD [Primary Care Provider] - 1-2 days Jossue Hunter DO [Doctor of Osteopathic Medicine] - 1-2 days Forms: Work/School Release Time of Disposition: 02:01
[2022-04-03] MEDS ORDERED: AMOXIC-POT CLAV 875-125MG 1 EACH TAB PO STA (01:57)
[2022-04-03] MEDS ORDERED: HYDROcodone/APAP 5-325MG 1 EACH TAB PO STA (01:57)
== END 2022-04-03 02:23 | disposition home or self-care (01) ==
LOC: EC 23:01
DX: B26.9 Mumps without complication (principal); J44.9 Chronic obstructive pulmonary disease, unspecified; K21.9 Gastro-esophageal reflux disease without esophagitis; I10 Essential (primary) hypertension; F17.200 Nicotine dependence, unspecified, uncomplicated; F12.90 Cannabis use, unspecified, uncomplicated; Z79.899 Other long term (current) drug therapy
CPT/HCPCS: 99283

== ENCOUNTER 2022-05-20 18:46 | Emergency (ER) | payer OTHER ==
[2022-05-20 18:52] VITALS: TEMP 97.5
[2022-05-20] MEDS ORDERED: predniSONE 20 MG TAB PO STA (21:46)
--- NOTE | 2022-05-20 21:53 | ED ---
SOB HPI - General Chief Complaint: Shortness of Breath Stated Complaint: sob, back pain Time Seen by Provider: 05/20/22 21:39 Source: patient, RN notes reviewed Mode of arrival: ambulatory Limitations: no limitations - History of Present Illness Initial Comments: This is a pleasant 52-year-old male that I initially saw in the triage area. Patient has history of COPD, continues to smoke cigarettes, history of hypertension and previous chest pain. Patient states he has had increasing shortness of breath for the last 2 weeks. Patient states she is getting a sharp pain in his back right side with deep breathing. Patient has had no fever. No chest pain. Patient has been immunized against COVID-19. Patient states she's been coughing up phlegm which is essentially clear. No headache, no fever or chills, no changes in vision or hearing, no sore throat or difficulty with speech, no neck pain, no chest pain, no abdominal pain, no nausea or vomiting, no changes in urination or bowel movements, no numbness or tingling, no extremity pain, no skin rashes or lesions. Past medical, surgical, social, and family history reviewed. - Related Data Home Medications Medication Instructions Recorded Confirmed Famotidine [Pepcid AC] 10 mg PO QID PRN 05/29/20 05/29/20 Fluticasone/Umeclidin/Vilanter 1 puff INHALATION RT-DAILY 05/29/20 05/29/20 [Trelegy Ellipta 100-62.5-25] amLODIPine [Norvasc] 5 mg PO DAILY@1700 05/29/20 05/29/20 Previous Rx's Medication Instructions Recorded Acetaminophen-Codeine 300-30mg 1 tab PO Q4H PRN #15 tablet 11/13/20 [Tylenol w/codeine #3] Azithromycin [Zithromax Z-pack (6 0 mg PO DIRECTED #6 tab 02/09/21 tabs)] guaiFENesin-DM 600/30MG [Mucinex 1 each PO Q12HR #10 tab.er.12h 02/09/21 Dm] predniSONE 50 mg PO DAILY #5 tablet 02/09/21 Lidocaine 5% Patch [Lidoderm] 1 patch TOPICAL DAILY #20 patch 04/19/21 Orphenadrine [Norflex] 100 mg PO Q12H PRN #20 tablet.er 04/19/21 Ibuprofen [Motrin] 600 mg PO Q8HR PRN #20 tab 06/03/21 methocarbamoL [Robaxin-750] 750 mg PO TID PRN #30 tablet 06/03/21 Amoxic-Pot Clav 875-125Mg 1 tab PO Q12HR 5 Days #10 tab 04/03/22 [Augmentin 875-125] Albuterol Inhaler [Ventolin Hfa 2 puff INHALATION Q4HR PRN #1 each 05/21/22 Inhaler] Doxycycline [Vibramycin] 100 mg PO BID 1 Days #14 each 05/21/22 predniSONE 50 mg PO DAILY #5 tab 05/21/22 Allergies Allergy/AdvReac Type Severity Reaction Status Date / Time No Known Allergies Allergy Verified 05/20/22 18:52 Review of Systems ROS Statement: Those systems with pertinent positive or pertinent negative responses have been documented in the HPI. ROS Other: All systems not noted in ROS Statement are negative. Past Medical History Past Medical History: Chest Pain / Angina, COPD, GERD/Reflux, Hearing Disorder / Deafness, Hypertension Additional Past Medical History / Comment(s): Heart murmur, frequent diarrhea, daily gerd, bilateral [place]-wears L hearing aide. History of Any Multi-Drug Resistant Organisms: None Reported Past Surgical History: Ear Surgery, Hernia Repair Additional Past Surgical History / Comment(s): Isac fundloplication, EGD, colonoscopy, multiple bilateral ear surgeries/tubes and eardrum reconstructions. Past Anesthesia/Blood Transfusion Reactions: No Reported Reaction Additional Past Anesthesia/Blood Transfusion Reaction / Comment(s): no hx blood transfusion Past Psychological History: No Psychological Hx Reported Smoking Status: Current every day smoker Past Alcohol Use History: Daily Past Drug Use History: Marijuana - Past Family History Son(s) Family Medical History: Diabetes Mellitus Father Family Medical History: COPD, Pneumonia General Exam - General Exam Comments Initial Comments: Vital signs stable, patient afebrile. Patient does not appear to be ill or toxic. No respiratory distress. Limitations: no limitations General appearance: alert, in no apparent distress Head exam: Present: atraumatic, normocephalic, normal inspection Eye exam: Present: normal appearance, PERRL, EOMI. Absent: scleral icterus, conjunctival injection, periorbital swelling ENT exam: Present: normal exam, normal oropharynx, mucous membranes moist, normal external ear exam. Absent: mucous membranes dry Neck exam: Present: normal inspection, full ROM. Absent: tenderness, meningismus, lymphadenopathy Respiratory exam: Present: rhonchi. Absent: normal lung sounds bilaterally, respiratory distress, wheezes, rales, stridor, chest wall tenderness, accessory muscle use, decreased breath sounds, prolonged expiratory Cardiovascular Exam: Present: regular rate, normal rhythm, normal heart sounds. Absent: systolic murmur, diastolic murmur, rubs, gallop, clicks GI/Abdominal exam: Present: soft, normal bowel sounds. Absent: distended, tenderness, guarding, rebound, rigid Extremities exam: Present: normal inspection, full ROM, normal capillary refill. Absent: tenderness, pedal edema, joint swelling, calf tenderness Back exam: Present: normal inspection Neurological exam: Present: alert, oriented X3, CN II-XII intact Psychiatric exam: Present: normal affect, normal mood Skin exam: Present: warm, dry, intact, normal color. Absent: rash Course Vital Signs 05/20/22 05/20/22 05/21/22 18:50 23:52 00:00 Temperature 97.5 F L Pulse Rate 96 75 Respiratory 20 18 14 Rate Blood Pressure 141/95 125/89 O2 Sat by Pulse 99 Oximetry 05/21/22 05/21/22 00:30 01:00 Temperature Pulse Rate 81 74 Respiratory 16 14 Rate Blood Pressure 135/93 135/96 O2 Sat by Pulse Oximetry - Reevaluation(s) Reevaluation #1: 05/21/22 00:04 Medical record is reviewed Symptoms are improved here in the emergency department Patient is informed of results and questions answered Patient in no distress Patient resting comfortably Medical Decision Making - Medical Decision Making Patient is PERC 1 due to age. Patient continues to smoke cigarettes. History of COPD. Is on ipratropium bromide and albuterol at home. Patient denying any no fever. Differential diagnosis includes COPD exacerbation, bronchitis, bacterial pneumonia. Patient presents with no respiratory distress, believe pulmonary embolism is unlikely. However we'll order a d-dimer. Patient's vital signs are stable, is afebrile. I think this makes bacterial pneumonia also unlikely. Patient has pleuritic posterior upper back pain with deep breathing. This does raise suspicion of pleurisy. Pneumothorax possible as the patient does have COPD. Possible bleb rupture. We'll order cardiopulmonary assessment and plan for reevaluation. - Lab Data Result diagrams: 05/20/22 23:29 05/20/22 23:29 Lab Results 05/20/22 05/20/22 05/20/22 Range/Units 23:29 23:29 23:29 WBC 5.9 (3.8-10.6) k/uL RBC 4.35 (4.30-5.90) m/uL Hgb 14.6 (13.0-17.5) gm/dL Hct 44.6 (39.0-53.0) % MCV 102.4 H (80.0-100.0) fL MCH 33.6 (25.0-35.0) pg MCHC 32.8 (31.0-37.0) g/dL RDW 13.2 (11.5-15.5) % Plt Count 273 (150-450) k/uL MPV 7.9 Neutrophils % 60 % Lymphocytes % 26 % Monocytes % 7 % Eosinophils % 2 % Basophils % 1 % Neutrophils # 3.6 (1.3-7.7) k/uL Lymphocytes # 1.6 (1.0-4.8) k/uL Monocytes # 0.4 (0-1.0) k/uL Eosinophils # 0.1 (0-0.7) k/uL Basophils # 0.1 (0-0.2) k/uL Macrocytosis Slight D-Dimer (<0.60) mg/L FEU Sodium 138 (137-145) mmol/L Potassium 4.1 (3.5-5.1) mmol/L Chloride 104 (98-107) mmol/L Carbon Dioxide 22 (22-30) mmol/L Anion Gap 12 mmol/L BUN 7 L (9-20) mg/dL Creatinine 0.48 L (0.66-1.25) mg/dL Est GFR (CKD-EPI)AfAm >90 (>60 ml/min/1.73 sqM) Est GFR (CKD-EPI)NonAf >90 (>60 ml/min/1.73 sqM) Glucose 83 (74-99) mg/dL Calcium 9.0 (8.4-10.2) mg/dL Total Bilirubin 0.2 (0.2-1.3) mg/dL AST 29 (17-59) U/L ALT 17 (4-49) U/L Alkaline Phosphatase 104 (38-126) U/L Troponin I <0.012 (0.000-0.034) ng/mL NT-Pro-B Natriuret Pep pg/mL Total Protein 7.7 (6.3-8.2) g/dL Albumin 4.3 (3.5-5.0) g/dL Coronavirus (PCR) (Not Detectd) 05/20/22 05/20/22 05/20/22 Range/Units 23:29 23:29 23:29 WBC (3.8-10.6) k/uL RBC (4.30-5.90) m/uL Hgb (13.0-17.5) gm/dL Hct (39.0-53.0) % MCV (80.0-100.0) fL MCH (25.0-35.0) pg MCHC (31.0-37.0) g/dL RDW (11.5-15.5) % Plt Count (150-450) k/uL MPV Neutrophils % % Lymphocytes % % Monocytes % % Eosinophils % % Basophils % % Neutrophils # (1.3-7.7) k/uL Lymphocytes # (1.0-4.8) k/uL Monocytes # (0-1.0) k/uL Eosinophils # (0-0.7) k/uL Basophils # (0-0.2) k/uL Macrocytosis D-Dimer 0.89 H (<0.60) mg/L FEU Sodium (137-145) mmol/L Potassium (3.5-5.1) mmol/L Chloride (98-107) mmol/L Carbon Dioxide (22-30) mmol/L Anion Gap mmol/L BUN (9-20) mg/dL Creatinine (0.66-1.25) mg/dL Est GFR (CKD-EPI)AfAm (>60 ml/min/1.73 sqM) Est GFR (CKD-EPI)NonAf (>60 ml/min/1.73 sqM) Glucose (74-99) mg/dL Calcium (8.4-10.2) mg/dL Total Bilirubin (0.2-1.3) mg/dL AST (17-59) U/L ALT (4-49) U/L Alkaline Phosphatase (38-126) U/L Troponin I (0.000-0.034) ng/mL NT-Pro-B Natriuret Pep 60 pg/mL Total Protein (6.3-8.2) g/dL Albumin (3.5-5.0) g/dL Coronavirus (PCR) Not Detected (Not Detectd) - EKG Data -: EKG Interpreted by Me EKG Comments: EKG done at 2231 read by the ED attending physician reveals sinus rhythm with a short OR interval. One PVC. OR interval 112 ms. Remainder of the intervals are normal. Right bundle-branch block. He changes. Compared to the previous study from January 2021 there is no significant change to include the OR interval Disposition Clinical Impression: COPD with exacerbation Disposition: HOME SELF-CARE Condition: Good Instructions (If sedation given, give patient instructions): How to Stop Smoking (ED), COPD (Chronic Obstructive Pulmonary Disease) (ED) Additional Instructions: Follow-up with your regular physician as directed. Return to the ER immediately if any symptoms worsen, new symptoms arise, or any other problems develop. Prescriptions: predniSONE 50 mg PO DAILY #5 tab Albuterol Inhaler [Ventolin Hfa Inhaler] 2 puff INHALATION Q4HR PRN #1 each PRN Reason: Wheezing Doxycycline [Vibramycin] 100 mg PO BID 1 Days #14 each Is patient prescribed a controlled substance at d/c from ED?: No Referrals: Trino Ely MD [Primary Care Provider] - 1-2 days Time of Disposition: 01:55
--- NOTE | 2022-05-20 22:04 | XR ---
EXAMINATION TYPE: XR chest 2V DATE OF EXAM: 05/20/2022 COMPARISON: 02/09/2021 HISTORY: Short of breath TECHNIQUE: FINDINGS: There is no heart failure nor confluent pneumonic infiltrate. Costophrenic angles are clear . There is pulmonary hyperinflation. Only thorax is intact. IMPRESSION: COPD. No active cardiopulmonary disease. No change.
[2022-05-20 23:48] LABS: ALT 17 U/L (4-49); AST 29 U/L (17-59); African American GFR (CKD) >90 (>60 ml/min/1.73 sqM); Albumin 4.3 g/dL (3.5-5.0); Alkaline Phosphatase 104 U/L (38-126); Anion Gap 12 mmol/L; Blood Urea Nitrogen 7 mg/dL (9-20); Carbon Dioxide 22 mmol/L (22-30); Chloride 104 mmol/L (98-107); Glucose 83 mg/dL (74-99); Non-African American GFR(CKD) >90 (>60 ml/min/1.73 sqM); Potassium 4.1 mmol/L (3.5-5.1); Sodium 138 mmol/L (137-145); Total Bilirubin 0.2 mg/dL (0.2-1.3); Total Protein 7.7 g/dL (6.3-8.2)
[2022-05-21 00:19] LABS: Basophils # (A) 0.1 k/uL (0-0.2); Basophils % (A) 1 %; Eosinophils # (A) 0.1 k/uL (0-0.7); Eosinophils % (A) 2 %; HCT 44.6 % (39.0-53.0); HGB 14.6 gm/dL (13.0-17.5); Lymphocytes # (A) 1.6 k/uL (1.0-4.8); Lymphocytes % (A) 26 %; MCH 33.6 pg (25.0-35.0); MCHC 32.8 g/dL (31.0-37.0); MCV 102.4 fL (80.0-100.0); Macrocytosis Slight; Mean Platelet Volume 7.9; Monocytes # (A) 0.4 k/uL (0-1.0); Monocytes % (A) 7 %; Neutrophils # (A) 3.6 k/uL (1.3-7.7); Neutrophils % (A) 60 %; Platelet Count 273 k/uL (150-450); RBC 4.35 m/uL (4.30-5.90); RDW 13.2 % (11.5-15.5); WBC 5.9 k/uL (3.8-10.6)
[2022-05-21] MEDS ORDERED: SODIUM CHLORIDE 0.9% 1,000 ML IV ONE (00:39)
--- NOTE | 2022-05-21 01:23 | CT ---
EXAMINATION TYPE: CT chest angio for PE DATE OF EXAM: 05/21/2022 COMPARISON: 05/29/2020 HISTORY: pain CT DLP: 258.3 mGycm Automated exposure control for dose reduction was used. CONTRAST: Performed with IV Contrast, patient injected with 80 mL of Isovue 370. There are Three-D postprocessed images. The lungs are clear of consolidation. No pulmonary mass. Heart size is normal. No pericardial effusio n. No pleural effusion. There are no hilar masses. No mediastinal adenopathy. Thoracic aorta is intac t. No aneurysm. There is normal contrast opacification of the pulmonary arteries. No filling defect. Thoracic spine is intact. No compression fracture. Sternum is intact. IMPRESSION: No evidence of pulmonary embolism. No adverse change compared to old exam. There are some emphysemato us changes at the lung apices.
[2022-05-21] MEDS ORDERED: DOXYCYCLINE 100 MG CAP PO STA (01:51)
[2022-05-21] MEDS ORDERED: IPRATROPIUM-ALBUTEROL 3 ML NEB INHALATION STA (01:53)
[2022-05-21 02:03] VITALS: BP 140/92
[2022-05-21 02:19] VITALS: PULSE 88; RESP 20
== END 2022-05-21 02:18 | disposition home or self-care (01) ==
LOC: EC 18:46
DX: J44.1 Chronic obstructive pulmonary disease with (acute) exacerbation (principal); H91.90 Unspecified hearing loss, unspecified ear; F17.200 Nicotine dependence, unspecified, uncomplicated; Z20.822 Contact with and (suspected) exposure to COVID-19
CPT/HCPCS: 36415; 94640; 93005; 85379; 83880; 80053; 84484; 85025; 87635; 71046; 71275; 99284; 96360; J7512; Q9967

== ENCOUNTER 2022-08-20 11:51 | Emergency (ER) | payer OTHER ==
[2022-08-20] MEDS ORDERED: dexAMETHasone 2 MG TAB PO STA (12:22)
--- NOTE | 2022-08-20 12:24 | ED ---
URI HPI - General Chief Complaint: Upper Respiratory Infection Stated Complaint: cough, SOB Time Seen by Provider: 08/20/22 12:11 Source: patient, RN notes reviewed, old records reviewed Mode of arrival: ambulatory Limitations: no limitations - History of Present Illness Initial Comments: 52-year-old male presents to the emergency room with low back pain and cough, states feels like he has pneumonia. He is a pack-a-day smoker. Denies any fevers, nausea vomiting or diarrhea. Does have a history of COPD, hypertension, heart murmur. MD Complaint: cough, other (back pain) -: days(s) Severity scale (1-10): 8 Quality: aching Consistency: constant Improves With: nothing Worsens With: deep breaths Treatments Prior to Arrival: other (Albuterol) - Related Data Home Medications Medication Instructions Recorded Confirmed Famotidine [Pepcid AC] 10 mg PO QID PRN 05/29/20 05/29/20 Fluticasone/Umeclidin/Vilanter 1 puff INHALATION RT-DAILY 05/29/20 05/29/20 [Trelegy Ellipta 100-62.5-25] amLODIPine [Norvasc] 5 mg PO DAILY@1700 05/29/20 05/29/20 Previous Rx's Medication Instructions Recorded Acetaminophen-Codeine 300-30mg 1 tab PO Q4H PRN #15 tablet 11/13/20 [Tylenol w/codeine #3] Azithromycin [Zithromax Z-pack (6 0 mg PO DIRECTED #6 tab 02/09/21 tabs)] guaiFENesin-DM 600/30MG [Mucinex 1 each PO Q12HR #10 tab.er.12h 02/09/21 Dm] predniSONE 50 mg PO DAILY #5 tablet 02/09/21 Lidocaine 5% Patch [Lidoderm] 1 patch TOPICAL DAILY #20 patch 04/19/21 Orphenadrine [Norflex] 100 mg PO Q12H PRN #20 tablet.er 04/19/21 Ibuprofen [Motrin] 600 mg PO Q8HR PRN #20 tab 06/03/21 methocarbamoL [Robaxin-750] 750 mg PO TID PRN #30 tablet 06/03/21 Amoxic-Pot Clav 875-125Mg 1 tab PO Q12HR 5 Days #10 tab 04/03/22 [Augmentin 875-125] Albuterol Inhaler [Ventolin Hfa 2 puff INHALATION Q4HR PRN #1 each 05/21/22 Inhaler] Doxycycline [Vibramycin] 100 mg PO BID 1 Days #14 each 05/21/22 predniSONE 50 mg PO DAILY #5 tab 05/21/22 Azithromycin [Zithromax Z Pack] 1 tab PO DIRECTED #6 tab 08/20/22 Allergies Allergy/AdvReac Type Severity Reaction Status Date / Time No Known Allergies Allergy Verified 05/20/22 18:52 Review of Systems ROS Statement: Those systems with pertinent positive or pertinent negative responses have been documented in the HPI. ROS Other: All systems not noted in ROS Statement are negative. Past Medical History Past Medical History: Chest Pain / Angina, COPD, GERD/Reflux, Hearing Disorder / Deafness, Hypertension Additional Past Medical History / Comment(s): Heart murmur, frequent diarrhea, daily gerd, bilateral [place]-wears L hearing aide. History of Any Multi-Drug Resistant Organisms: None Reported Past Surgical History: Ear Surgery, Hernia Repair Additional Past Surgical History / Comment(s): Isac fundloplication, EGD, colonoscopy, multiple bilateral ear surgeries/tubes and eardrum reconstructions. Past Anesthesia/Blood Transfusion Reactions: No Reported Reaction Additional Past Anesthesia/Blood Transfusion Reaction / Comment(s): no hx blood transfusion Past Psychological History: No Psychological Hx Reported Smoking Status: Current every day smoker Past Alcohol Use History: Daily Past Drug Use History: Marijuana - Past Family History Son(s) Family Medical History: Diabetes Mellitus Father Family Medical History: COPD, Pneumonia General Exam Limitations: no limitations General appearance: alert, in no apparent distress Head exam: Present: atraumatic Eye exam: Absent: scleral icterus, conjunctival injection, periorbital swelling ENT exam: Present: mucous membranes moist Neck exam: Present: normal inspection, full ROM. Absent: tenderness, meningismu s, lymphadenopathy Respiratory exam: Present: normal lung sounds bilaterally. Absent: respiratory distress, wheezes, rales, rhonchi, stridor, chest wall tenderness, accessory muscle use Cardiovascular Exam: Present: regular rate GI/Abdominal exam: Present: soft. Absent: distended Neurological exam: Present: alert, oriented X3, normal gait Psychiatric exam: Present: normal affect, normal mood Skin exam: Present: warm, dry, normal color. Absent: cyanosis, diaphoretic, pallor Course Vital Signs 08/20/22 08/20/22 12:03 13:49 Temperature 97.8 F 98.7 F Pulse Rate 76 64 Respiratory 16 22 Rate Blood Pressure 148/91 144/88 O2 Sat by Pulse 99 100 Oximetry Medical Decision Making - Medical Decision Making Patient presents with cough and low back pain concerned for pneumonia. He does have a history of COPD and is continuing to be a pack-a-day smoker. Patient denies any fevers or chest pain. No respiratory distress. Chest x-ray interpreted by me shows COPD with no evidence of consolidation concerning for pneumonia. Radiologist interpretation no acute cardiopulmonary disease. COPD changes. Patient was given Decadron by mouth. I did consider giving a DuoNeb treatment however patient's lung sounds are clear to auscultation. Oxygen saturation 99% on room air He was discharged and directed to continue his daily inhalers and albuterol as needed. Zpack prescribed for COPD exacerbation with reports of change in sputum to thick and yellow. Directed to follow up with his primary care doctor next week. I did direct him to continue to try to quit smoking. Return to the emergency room with any new or concerning symptoms. Patient and family member agreeable to this plan of care. Case discussed with Dr. Christianson. Disposition Clinical Impression: COPD exacerbation Disposition: HOME SELF-CARE Condition: Good Instructions (If sedation given, give patient instructions): COPD (Chronic Obstructive Pulmonary Disease) (ED) Additional Instructions: Take antibiotics as prescribed. Continue your previously prescribed medications. Follow up with her primary care doctor this week. Return to the emergency room with a concerning symptoms including chest pain or fevers. Prescriptions: Azithromycin [Zithromax Z Pack] 1 tab PO DIRECTED #6 tab Is patient prescribed a controlled substance at d/c from ED?: No Referrals: Trino Ely MD [Primary Care Provider] - 1-2 days Time of Disposition: 13:36
--- NOTE | 2022-08-20 13:14 | XR ---
EXAMINATION TYPE: XR chest 2V DATE OF EXAM: 08/20/2022 1:05 PM COMPARISON: Chest radiographs from 05/20/2022, CTA chest 05/21/2022. TECHNIQUE: XR chest 2V Frontal and lateral views of the chest. CLINICAL INDICATION:Male, 52 years old with history of cough; FINDINGS: Lungs/Pleura: There is flattening of the diaphragm with increased lucency of the lungs. No evidence o f pneumothorax, pleural effusion or focal consolidation. Pulmonary vascularity: Unremarkable. Heart/mediastinum: Cardiomediastinal silhouette is unremarkable. Musculoskeletal: No acute osseous pathology. IMPRESSION: 1. No acute cardiopulmonary disease process. 2. COPD changes.
[2022-08-20 13:49] VITALS: BP 144/88; PULSE 64; RESP 22; TEMP 98.7
== END 2022-08-20 13:50 | disposition home or self-care (01) ==
LOC: EC 11:51
DX: J44.1 Chronic obstructive pulmonary disease with (acute) exacerbation (principal); I10 Essential (primary) hypertension; K21.9 Gastro-esophageal reflux disease without esophagitis; F17.210 Nicotine dependence, cigarettes, uncomplicated; F12.90 Cannabis use, unspecified, uncomplicated; Z79.51 Long term (current) use of inhaled steroids; Z79.899 Other long term (current) drug therapy
CPT/HCPCS: 99285 ×2; 71046; 99284; J8540

== ENCOUNTER 2023-01-03 19:48 | Emergency (ER) | payer OTHER ==
[2023-01-03 20:05] VITALS: TEMP 98.3
--- NOTE | 2023-01-03 20:58 | ED ---
Chest Pain HPI - General Chief Complaint: Chest Pain Stated Complaint: Chest tightness/sob Time Seen by Provider: 01/03/23 20:41 Source: patient, family, RN notes reviewed, old records reviewed Mode of arrival: wheelchair Limitations: no limitations - History of Present Illness Initial Comments: This is a 52-year-old male to the emergency department for evaluation patient resents today for evaluation regards to chest pain he really complains of anxiety not sleeping well and persistent anxiety here in the ER although improving he is here, patient is here with his who urged him to come the emergency department and presents to ER today for chest pain evaluation she was concerned over the symptoms. Patient denies current chest pain or shortness of breath MD Complaint: chest pain -: days(s) Onset: during rest, during exertion Pain Location: substernal Pain Radiation: none Severity: mild Quality: aching Consistency: intermittent, now resolved Improves With: nothing Worsens With: nothing Anginal Symptoms: dyspnea Other Symptoms: palpitations Treatments Prior to Arrival: none - Related Data Home Medications Medication Instructions Recorded Confirmed Aspirin EC [Ecotrin] 975 mg PO DAILY 01/03/23 01/03/23 Previous Rx's Medication Instructions Recorded Mirtazapine [Remeron] 15 mg PO HS #30 tab 01/03/23 Allergies Allergy/AdvReac Type Severity Reaction Status Date / Time No Known Allergies Allergy Verified 01/03/23 21:55 Review of Systems ROS Statement: Those systems with pertinent positive or pertinent negative responses have been documented in the HPI. ROS Other: All systems not noted in ROS Statement are negative. EKG Findings - EKG Comments: EKG Findings:: EKG is sinus 71 SD 119 QRS 140 QTC 420 Past Medical History Past Medical History: Chest Pain / Angina, COPD, GERD/Reflux, Hearing Disorder / Deafness, Hypertension Additional Past Medical History / Comment(s): Heart murmur, frequent diarrhea, daily gerd, bilateral [place]-wears L hearing aide. History of Any Multi-Drug Resistant Organisms: None Reported Past Surgical History: Ear Surgery, Hernia Repair Additional Past Surgical History / Comment(s): Isac fundloplication, EGD, colonoscopy, multiple bilateral ear surgeries/tubes and eardrum reconstructions. Past Anesthesia/Blood Transfusion Reactions: No Reported Reaction Additional Past Anesthesia/Blood Transfusion Reaction / Comment(s): no hx blood transfusion Past Psychological History: No Psychological Hx Reported Smoking Status: Current every day smoker Past Alcohol Use History: Daily Past Drug Use History: Marijuana - Past Family History Son(s) Family Medical History: Diabetes Mellitus Father Family Medical History: COPD, Pneumonia General Exam Limitations: no limitations General appearance: alert, in no apparent distress Head exam: Present: atraumatic, normocephalic, normal inspection Eye exam: Present: normal appearance, PERRL, EOMI. Absent: scleral icterus, conjunctival injection, periorbital swelling ENT exam: Present: normal exam, mucous membranes moist Neck exam: Present: normal inspection. Absent: tenderness, meningismus, lymphadenopathy Respiratory exam: Present: normal lung sounds bilaterally. Absent: respiratory distress, wheezes, rales, rhonchi, stridor Cardiovascular Exam: Present: regular rate, normal rhythm, normal heart sounds. Absent: systolic murmur, diastolic murmur, rubs, gallop, clicks GI/Abdominal exam: Present: soft, normal bowel sounds. Absent: distended, tenderness, guarding, rebound, rigid Extremities exam: Present: normal inspection, full ROM, normal capillary refill. Absent: tenderness, pedal edema, joint swelling, calf tenderness Back exam: Present: normal inspection Neurological exam: Present: alert, oriented X3, CN II-XII intact Psychiatric exam: Present: normal affect, normal mood Skin exam: Present: warm, dry, intact, normal color. Absent: rash Course Vital Signs 01/03/23 01/03/23 01/03/23 20:01 20:50 21:00 Temperature 98.3 F Pulse Rate 76 80 67 Respiratory 16 15 10 L Rate Blood Pressure 162/100 151/97 151/97 O2 Sat by Pulse 100 99 99 Oximetry 01/03/23 01/03/23 01/03/23 21:10 21:20 21:30 Temperature Pulse Rate 75 81 71 Respiratory 19 7 L 6 L Rate Blood Pressure O2 Sat by Pulse 100 99 100 Oximetry 01/03/23 01/03/23 01/03/23 21:40 21:50 22:00 Temperature Pulse Rate 71 74 73 Respiratory 10 L 7 L 9 L Rate Blood Pressure O2 Sat by Pulse 99 98 99 Oximetry - Reevaluation(s) Reevaluation #1: 01/03/23 23:02 Medical records reviewed Reevaluation #2: 01/03/23 23:02 Patient informed results and questions answered Reevaluation #3: 01/03/23 23:02 No chest pain throughout ER stay Studies Chest x-rays negative for acute disease interpreted by me Reevaluation #4: 01/03/23 23:02 Was pt. sent in by a medical professional or institution? @ -no Did you speak to anyone other than the patient for history? @ -Since was at bedside concerned for patient's symptoms and persistent symptoms including weight loss and not sleeping Did you review nursing and triage notes? @ -agree Were old charts reviewed? @ -no Differential Diagnosis? @ -prior EKG interpreted by me (3pts min.)? @ -yes X-rays interpreted by me (1pt min.)? @ -yes CT interpreted by me (1pt min.)? @ -no U/S interpreted by me (1pt. min.)? @ -no What testing was considered but not performed? (CT, X-rays, U/S, labs)? Why? @ no What meds were considered but not given? Why? @ -none Did you discuss the management of the patient with other professionals? @ -no Did you reconcile home meds? @ -no Was smoking cessation discussed for >3mins.? @ -no Was critical care preformed (if so, how long)? @ -no Were there social determinants of health that impacted care today? How? (Homelessness, low income, unemployed, alcoholism, drug addiction, transportation, low edu. Level, literacy, decrease access to med. care, care home, rehab)? @ -no Was there de-escalation of care discussed even if they declined? (Discuss DNR or withdrawal of care, Hospice)? @ -no What co-morbidities impacted this encounter? (DM, HTN, Smoking, COPD, CAD, Cancer, CVA, Hep., AIDS, mental health diagnosis, sleep apnea, morbid obesity)? @ -none Was patient admitted / discharged? @ -dc Undiagnosed new problem with uncertain prognosis? @ -no Drug Therapy requiring intensive monitoring for toxicity (Heparin, Nitro, Insulin, Cardizem)? @ -none Were any procedures done? @ -no Diagnosis/symptom? @ -Chest pain, insomnia, anxiety Acute, or Chronic, or Acute on Chronic? @ -acute Uncomplicated (without systemic symptoms) or Complicated (systemic symptoms)? @ -uncomplicated Side effects of treatment? @ -none Exacerbation, Progression, or Severe Exacerbation] @ -None Poses a threat to life or bodily function? @ -no Reevaluation #5: 01/03/23 23:02 Differential Chest Pain: Stable Angina, Unstable Angina, STEMI, NSTEMI Aortic Dissection, Pneumothorax, Musculoskeletal, Esophageal Spasm GERD, Cholecystitis, Pancreatitis, Zoster, this is not meant to be an all-inclusive list. Chest Pain MDM - MDM 49 female to the emergency department for chest pain today he complains of anxiety decreased sleeping level like to have something to help him sleep. Patient denying chest pain throughout ER stay testing is normal and he can be discharged Disposition Clinical Impression: Chest pain, Atypical chest pain, Insomnia, Anxiety Disposition: HOME SELF-CARE Condition: Good Instructions (If sedation given, give patient instructions): Chest Pain (ED) Prescriptions: Mirtazapine [Remeron] 15 mg PO HS #30 tab Is patient prescribed a controlled substance at d/c from ED?: No Referrals: Trino Ely MD [Primary Care Provider] - 1-2 days Time of Disposition: 22:20
--- NOTE | 2023-01-03 21:15 | XR ---
EXAMINATION TYPE: XR chest 2V DATE OF EXAM: 01/03/2023 9:09 PM COMPARISON: Chest radiographs from 08/20/2022 TECHNIQUE: XR chest 2V Frontal and lateral views of the chest. CLINICAL INDICATION:Male, 52 years old with history of Chest Pain; FINDINGS: Lungs/Pleura: Prominent interstitial lung markings are seen scattered throughout the lungs with derek ening of the diaphragm and increased lucency of the lung apices. No evidence of focal consolidation, pneumothorax or pleural effusion. Pulmonary vascularity: Unremarkable. Heart/mediastinum: Cardiomediastinal silhouette is unremarkable. Musculoskeletal: No acute osseous pathology. IMPRESSION: 1. No acute cardiopulmonary disease process. 2. COPD changes.
[2023-01-03 21:28] LABS: HCT 44.8 % (39.0-53.0); HGB 14.3 gm/dL (13.0-17.5); MCH 31.5 pg (25.0-35.0); MCHC 31.8 g/dL (31.0-37.0); Mean Platelet Volume 8.3; Platelet Count 195 k/uL (150-450); RBC 4.53 m/uL (4.30-5.90); RDW 13.5 % (11.5-15.5); WBC 4.8 k/uL (3.8-10.6)
[2023-01-03 21:30] LABS: ALT 22 U/L (4-49); AST 29 U/L (17-59); African American GFR (CKD) >90 (>60 ml/min/1.73 sqM); Albumin 4.2 g/dL (3.5-5.0); Alkaline Phosphatase 87 U/L (38-126); Anion Gap 12 mmol/L; Blood Urea Nitrogen 11 mg/dL (9-20); Calcium 8.7 mg/dL (8.4-10.2); Carbon Dioxide 20 mmol/L (22-30); Chloride 102 mmol/L (98-107); Glucose 72 mg/dL (74-99); Lipase 162 U/L (23-300); Magnesium 1.9 mg/dL (1.6-2.3); Non-African American GFR(CKD) >90 (>60 ml/min/1.73 sqM); Potassium 3.7 mmol/L (3.5-5.1); Sodium 134 mmol/L (137-145); Total Bilirubin 0.4 mg/dL (0.2-1.3); Total Protein 7.9 g/dL (6.3-8.2)
[2023-01-03 21:37] LABS: INR 0.9 (<1.2); Prothrombin Time 9.9 sec (9.0-12.0)
[2023-01-03 22:00] LABS: Eosinophils # (M) 0.14 k/uL (0-0.7); Lymphocytes # (M) 2.02 k/uL (1.0-4.8); Monocytes # (M) 0.67 k/uL (0-1.0); Neutrophils # (M) 1.97 k/uL (1.3-7.7); Neutrophils % (M) 41 %; Nucleated Red Blood Cells 0 /100 WBC (0-0); RBC Morphology Normal; Total Cells Counted 100
[2023-01-03 22:06] VITALS: BP 151/97; PULSE 73; RESP 9
[2023-01-03] MEDS ORDERED: LORazepam 1 MG TAB PO STA (22:23)
[2023-01-03] MEDS ORDERED: ZOLPIDEM 5 MG TAB PO STA (22:24)
== END 2023-01-03 22:57 | disposition home or self-care (01) ==
LOC: EC 19:48
DX: R07.89 Other chest pain (principal); F41.9 Anxiety disorder, unspecified; G47.00 Insomnia, unspecified; J44.9 Chronic obstructive pulmonary disease, unspecified; K21.9 Gastro-esophageal reflux disease without esophagitis; I10 Essential (primary) hypertension; F17.200 Nicotine dependence, unspecified, uncomplicated; F12.90 Cannabis use, unspecified, uncomplicated; Z79.82 Long term (current) use of aspirin
CPT/HCPCS: 36415; 71046; 80053; 83690; 83735; 83880; 84484; 85025; 85610; 85730; 93005; 99285

== ENCOUNTER 2023-01-28 14:39 | Inpatient (IN) | payer MEDICAID, OTHER ==
[2023-01-28] MEDS ORDERED: LORazepam 0.5 MG TAB PO STA (15:43)
[2023-01-28] MEDS ORDERED: THIAMINE 100 MG/ML 2 ML VIAL IM STA (16:10)
[2023-01-28] MEDS ORDERED: LORazepam 2 MG/ML INJ IV PRN ×3 (16:10)
--- NOTE | 2023-01-28 16:10 | ED ---
General Adult HPI - General Chief complaint: Psychiatric Symptoms Stated complaint: Mental Health Time Seen by Provider: 01/28/23 14:51 Source: patient, EMS, RN notes reviewed, old records reviewed Mode of arrival: EMS Limitations: no limitations - History of Present Illness Initial comments: Patient is a 52-year-old male with past medical history remarkable for depression, suicidal ideations, daily alcohol abuse presents emergency Department complaining of acute alcohol intoxication, suicidal ideation, depression for 3 weeks after splinting from his . Denies any plans or attempts or suicide. Denies any homicidal ideations, attempts complaints. Has required inpatient psychiatric admission previously. He is not on any medications. Has a history of hypertension but is not compliant with meds. Denies any other acute complaints at this time. Wants to be evaluated by psychiatry. Patient is acutely intoxicated with alcohol. Denies any drug abuse. Denies any hallucinations. - Related Data Home Medications Medication Instructions Recorded Confirmed No Known Home Medications 01/28/23 01/28/23 Allergies Allergy/AdvReac Type Severity Reaction Status Date / Time No Known Allergies Allergy Verified 01/28/23 15:57 Review of Systems ROS Statement: Those systems with pertinent positive or pertinent negative responses have been documented in the HPI. Review of Systems: CONST: Denies fever EYES: Denies blurry vision ENT: Denies nasal congestion C/V: Denies Chest pain RESP: Denies shortness of breath GI: Denies abdominal pain : Denies dysuria SKIN: Denies rash. MSK: Denies joint pain. NEURO: Denies headache PSYCH: Denies homicidal ideations/plans/attempts. Denies visual or auditory hallucinations. He endorses depression, suicidal ideations. Denies any suicidal attempts or plans. ROS Other: All systems not noted in ROS Statement are negative. Past Medical History Past Medical History: Chest Pain / Angina, COPD, GERD/Reflux, Hearing Disorder / Deafness, Hypertension Additional Past Medical History / Comment(s): Heart murmur, frequent diarrhea, daily gerd, bilateral [place]-wears L hearing aide. History of Any Multi-Drug Resistant Organisms: None Reported Past Surgical History: Ear Surgery, Hernia Repair Additional Past Surgical History / Comment(s): Isac fundloplication, EGD, colonoscopy, multiple bilateral ear surgeries/tubes and eardrum reconstructions. Past Anesthesia/Blood Transfusion Reactions: No Reported Reaction Additional Past Anesthesia/Blood Transfusion Reaction / Comment(s): no hx blood transfusion Past Psychological History: Depression Smoking Status: Current every day smoker Past Alcohol Use History: Daily Past Drug Use History: Marijuana - Past Family History Son(s) Family Medical History: Diabetes Mellitus Father Family Medical History: COPD, Pneumonia General Exam - General Exam Comments Initial Comments: General: Appears in no acute distress. HEAD: Normal with no signs of head trauma. EYES: PERRLA, EOMI, conjunctiva normal, no discharge. ENT: Hearing grossly intact, normal oropharynx. RESPIRATORY: Clear breath sounds bilaterally. No wheezes, rales, or rhonchi. C/V: Regular rate and rhythm. S1 and S2 auscultated, peripheral pulses 2+ and intact throughout ABD: Abd is soft, nontender, nondistended EXT: Normal range of motion, no obvious deformity SKIN: No rashes or lesions observed on exposed skin. NEURO: Alert and oriented 4. Limitations: no limitations Course Vital Signs 01/28/23 01/28/23 01/28/23 14:40 23:02 23:53 Temperature 98.2 F 93.8 F L Pulse Rate 76 Pulse Rate [ 82 Bilateral] Respiratory 18 20 18 Rate Blood Pressure 154/100 Blood Pressure 160/97 [Right Arm] O2 Sat by Pulse 97 97 Oximetry 01/29/23 02:04 Temperature Pulse Rate Pulse Rate [ Bilateral] Respiratory 18 Rate Blood Pressure Blood Pressure [Right Arm] O2 Sat by Pulse Oximetry Medical Decision Making - Medical Decision Making Was pt. sent in by a medical professional or institution (, PA, SENIOR UI DEVELOPER, urgent care, hospital, or prison...) When possible be specific @ -No Did you speak to anyone other than the patient for history (EMS, parent, family, police, friend...)? What history was obtained from this source @ -No Did you review nursing and triage notes (agree or disagree)? Why? @ -I reviewed and agree with nursing and triage notes Were old charts reviewed (outside hosp., previous admission, EMS record, old EKG, old radiological studies, urgent care reports/EKG's, prison records)? Report findings @ -No old charts were reviewed Differential Diagnosis (chest pain, altered mental status, abdominal pain women, abdominal pain men, vaginal bleeding, weakness, fever, dyspnea, syncope, headache, dizziness, GI bleed, back pain, seizure, CVA, palpatations, mental health, musculoskeletal)? @ -Differential Mental Health Depression, anxiety, bipolar, psychosis, schizophrenia, borderline personality, situational depression, adjustment disorder, behavioral disorder, brain tumor, malingering, substance abuse, encephalopathy, medication reaction, dementia, hypothyroidism, degenerative neurologic disorder, lupus.... This is not meant to be all-inclusive list EKG interpreted by me (3pts min.). @ -None done X-rays interpreted by me (1pt min.). @ -None done CT interpreted by me (1pt min.). @ -None done U/S interpreted by me (1pt. min.). @ -None done What testing was considered but not performed or refused? (CT, X-rays, U/S, labs)? Why? @ -None What meds were considered but not given or refused? Why? @ -None Did you discuss the management of the patient with other professionals (professionals i.e. , PA, SENIOR UI DEVELOPER, lab, RT, psych nurse, social media intern, timber hewer, teacher, campus security officer, case maker)? Give summary @ -No Was smoking cessation discussed for >3mins.? @ -No Was critical care preformed (if so, how long)? @ -No Were there social determinants of health that impacted care today? How? (Homelessness, low income, unemployed, alcoholism, drug addiction, transportation, low edu. Level, literacy, decrease access to med. care, senior care, rehab)? @ -No Was there de-escalation of care discussed even if they declined (Discuss DNR or withdrawal of care, Hospice)? DNR status @ -No What co-morbidities impacted this encounter? (DM, HTN, Smoking, COPD, CAD, Cancer, CVA, ARF, Chemo, Hep., AIDS, mental health diagnosis, sleep apnea, morbid obesity)? @ -None Was patient admitted / discharged? Hospital course, mention meds given and route, prescriptions, significant lab abnormalities, going to OR and other pertinent info. @ -Patient is a 52 year old male presents emergency Department complaining of depression, suicidal ideations. Patient is also acutely intoxicated with alcohol. He was placed in green scrubs. Sitter and suicide precautions ordered. Has no other acute complaints at this time. Patient's BAT is 0.161 UDS is pending. Vital signs within acceptable limits. No evidence of alcohol withdrawals at this time. Patient is medically cleared for evaluation by psychiatry when sober. Disposition is pending psychiatric evaluation. CIWA protocol was ordered for the patient in the event of showing signs of alcohol withdrawal. EPS was notifi ed. Patient was eventually admitted to inpatient psychiatry. Undiagnosed new problem with uncertain prognosis? @ -No Drug Therapy requiring intensive monitoring for toxicity (Heparin, Nitro, Insulin, Cardizem)? @ -No Were any procedures done? @ -No Diagnosis/symptom? @ -Alcohol intoxication Acute, or Chronic, or Acute on Chronic? @ -Acute Uncomplicated (without systemic symptoms) or Complicated (systemic symptoms)? @ -Uncomplicated Side effects of treatment? @ -No Exacerbation, Progression, or Severe Exacerbation? @ -No Poses a threat to life or bodily function? How? (Chest pain, [place], [place], pneumonia, PE, COPD, DKA, ARF, appy, cholecystitis, CVA, Diverticulitis, Homicidal, Suicidal, threat to staff... and all critical care pts) @ -No Diagnosis/symptom? @ -Suicidal ideations, depression, encounter for psychiatric evaluation Acute, or Chronic, or Acute on Chronic? @ -Acute Uncomplicated (without systemic symptoms) or Complicated (systemic symptoms)? @ -Uncomplicated Side effects of treatment? @ -none Exacerbation, Progression, or Severe Exacerbation] @ -no Poses a threat to life or bodily function? @ -yes - Lab Data Result diagrams: 01/29/23 07:27 01/29/23 07:27 Lab Results 01/28/23 01/28/23 Range/Units 15:55 22:13 Urine Opiates Screen Not Detected (NotDetected) Ur Oxycodone Screen Not Detected (NotDetected) Urine Methadone Screen Not Detected (NotDetected) Ur Propoxyphene Screen Not Detected (NotDetected) Ur Barbiturates Screen Not Detected (NotDetected) U Tricyclic Antidepress Not Detected (NotDetected) Ur Phencyclidine Scrn Not Detected (NotDetected) Ur Amphetamines Screen Not Detected (NotDetected) U Methamphetamines Scrn Not Detected (NotDetected) U Benzodiazepines Scrn Not Detected (NotDetected) Urine Cocaine Screen Not Detected (NotDetected) U Marijuana (THC) Screen Not Detected (NotDetected) Influenza Type A (PCR) Not Detected (Not Detectd) Influenza Type B (PCR) Not Detected (Not Detectd) RSV (PCR) Not Detected (Not Detectd) SARS-CoV-2 (PCR) Not Detected (Not Detectd) Disposition Clinical Impression: Encounter for psychiatric assessment, Suicidal ideation, Alcohol intoxication Disposition: ADMITTED IP TO THIS HOSP Condition: Stable
[2023-01-28 16:23] LABS: Amphetamine Screen,Urine Not Detected (NotDetected); Barbiturate Screen,Urine Not Detected (NotDetected); Benzodiazepines Screen,Urine Not Detected (NotDetected); Cocaine Screen,Urine Not Detected (NotDetected); Methadone Screen, Urine Not Detected (NotDetected); Opiate Screen,Urine Not Detected (NotDetected); Oxycodone Screen, Urine Not Detected (NotDetected); Phencyclidine Screen,Urine Not Detected (NotDetected); Tricyclic Antidepressant,Urine Not Detected (NotDetected); Urn Cannabinoid Scrn Not Detected (NotDetected)
[2023-01-28] MEDS ORDERED: IBUPROFEN 600 MG TAB PO PRN (23:57)
[2023-01-28] MEDS ORDERED: traZODone HCL 50 MG TAB PO PRN (23:57)
[2023-01-28] MEDS ORDERED: OLANZapine 5 MG TAB PO PRN (23:57)
[2023-01-28] MEDS ORDERED: OLANZapine 10 MG VIAL IM PRN (23:57)
[2023-01-28] MEDS ORDERED: ACETAMINOPHEN TAB 325 MG TAB PO PRN (23:57)
[2023-01-28] MEDS ORDERED: hydrOXYzine HCL 50 MG/ML 1 ML VIAL IM PRN (23:57)
[2023-01-28] MEDS ORDERED: MAGNESIUM HYDROXIDE 2,400 MG/10 ML CUP PO PRN (23:57)
[2023-01-28] MEDS ORDERED: MAG HYDROX/AL HYDROX/SIMETH 30 ML CUP PO PRN (23:57)
[2023-01-29 07:59] LABS: Basophils % (A) 1 %; Eosinophils # (A) 0.1 k/uL (0-0.7); Eosinophils % (A) 1 %; HCT 49.3 % (39.0-53.0); HGB 16.3 gm/dL (13.0-17.5); Lymphocytes # (A) 0.9 k/uL (1.0-4.8); Lymphocytes % (A) 19 %; MCH 32.5 pg (25.0-35.0); MCV 98.5 fL (80.0-100.0); Mean Platelet Volume 8.3; Monocytes # (A) 0.4 k/uL (0-1.0); Monocytes % (A) 8 %; Neutrophils # (A) 3.3 k/uL (1.3-7.7); Neutrophils % (A) 68 %; Platelet Count 212 k/uL (150-450); RBC 5.01 m/uL (4.30-5.90); RDW 13.4 % (11.5-15.5); WBC 4.8 k/uL (3.8-10.6)
[2023-01-29 08:12] LABS: ALT 93 U/L (4-49); AST 334 U/L (17-59); African American GFR (CKD) >90 (>60 ml/min/1.73 sqM); Albumin 4.4 g/dL (3.5-5.0); Alkaline Phosphatase 130 U/L (38-126); Anion Gap 6 mmol/L; Blood Urea Nitrogen 11 mg/dL (9-20); Calcium 9.1 mg/dL (8.4-10.2); Carbon Dioxide 30 mmol/L (22-30); Chloride 100 mmol/L (98-107); Glucose 88 mg/dL (74-99); Non-African American GFR(CKD) >90 (>60 ml/min/1.73 sqM); Potassium 4.7 mmol/L (3.5-5.1); Sodium 136 mmol/L (137-145); Total Bilirubin 0.9 mg/dL (0.2-1.3); Total Protein 8.2 g/dL (6.3-8.2)
[2023-01-29] MEDS: THIAMINE 100 MG TAB PO SCH (08:25)
[2023-01-29] MEDS ORDERED: chlordiazePOXIDE 25 MG CAP PO SCH (09:00)
[2023-01-29] MEDS ORDERED: NICOTINE 21MG/24HR PATCH TRANSDERM SCH (09:00)
[2023-01-29] MEDS ORDERED: LORazepam 1 MG TAB PO PRN ×2 (10:17→10:18)
--- NOTE | 2023-01-29 10:29 | P.HP ---
Psychiatric H&P - . H&P Date: 01/29/23 History & Physical: Allergies Allergy/AdvReac Type Severity Reaction Status Date / Time No Known Allergies Allergy Verified 01/28/23 15:57 Vital Signs Temp 96.8 F L 01/29/23 02:09 Pulse 104 H 01/29/23 08:28 Resp 18 01/29/23 02:09 BP 132/81 01/29/23 08:28 Pulse Ox 97 01/29/23 02:09 FiO2 Intake & Output 01/28/23 01/29/23 01/29/23 18:59 06:59 18:59 Weight 56.699 kg Laboratory Last Values WBC 4.8 k/uL (3.8-10.6) 01/29/23 07:27 RBC 5.01 m/uL (4.30-5.90) 01/29/23 07:27 Hgb 16.3 gm/dL (13.0-17.5) 01/29/23 07:27 Hct 49.3 % (39.0-53.0) 01/29/23 07:27 MCV 98.5 fL (80.0-100.0) 01/29/23 07:27 MCH 32.5 pg (25.0-35.0) 01/29/23 07:27 MCHC 33.0 g/dL (31.0-37.0) 01/29/23 07:27 RDW 13.4 % (11.5-15.5) 01/29/23 07:27 Plt Count 212 k/uL (150-450) 01/29/23 07:27 MPV 8.3 01/29/23 07:27 Neutrophils % 68 % 01/29/23 07:27 Lymphocytes % 19 % 01/29/23 07:27 Monocytes % 8 % 01/29/23 07:27 Eosinophils % 1 % 01/29/23 07:27 Basophils % 1 % 01/29/23 07:27 Neutrophils # 3.3 k/uL (1.3-7.7) 01/29/23 07:27 Lymphocytes # 0.9 k/uL (1.0-4.8) L 01/29/23 07:27 Monocytes # 0.4 k/uL (0-1.0) 01/29/23 07:27 Eosinophils # 0.1 k/uL (0-0.7) 01/29/23 07:27 Basophils # 0.0 k/uL (0-0.2) 01/29/23 07:27 Sodium 136 mmol/L (137-145) L 01/29/23 07:27 Potassium 4.7 mmol/L (3.5-5.1) 01/29/23 07:27 Chloride 100 mmol/L (98-107) 01/29/23 07:27 Carbon Dioxide 30 mmol/L (22-30) 01/29/23 07:27 Anion Gap 6 mmol/L 01/29/23 07:27 BUN 11 mg/dL (9-20) 01/29/23 07:27 Creatinine 0.61 mg/dL (0.66-1.25) L 01/29/23 07:27 Est GFR (CKD-EPI)AfAm >90 (>60 ml/min/1.73 sqM) 01/29/23 07:27 Est GFR (CKD-EPI)NonAf >90 (>60 ml/min/1.73 sqM) 01/29/23 07:27 Glucose 88 mg/dL (74-99) 01/29/23 07:27 Calcium 9.1 mg/dL (8.4-10.2) 01/29/23 07:27 Total Bilirubin 0.9 mg/dL (0.2-1.3) 01/29/23 07:27 AST 334 U/L (17-59) H 01/29/23 07:27 ALT 93 U/L (4-49) H 01/29/23 07:27 Alkaline Phosphatase 130 U/L (38-126) H 01/29/23 07:27 Total Protein 8.2 g/dL (6.3-8.2) 01/29/23 07:27 Albumin 4.4 g/dL (3.5-5.0) 01/29/23 07:27 TSH 0.954 mIU/L (0.465-4.680) 01/29/23 07:27 Urine Opiates Screen Not Detected (NotDetected) 01/28/23 15:55 Ur Oxycodone Screen Not Detected (NotDetected) 01/28/23 15:55 Urine Methadone Screen Not Detected (NotDetected) 01/28/23 15:55 Ur Propoxyphene Screen Not Detected (NotDetected) 01/28/23 15:55 Ur Barbiturates Screen Not Detected (NotDetected) 01/28/23 15:55 U Tricyclic Antidepress Not Detected (NotDetected) 01/28/23 15:55 Ur Phencyclidine Scrn Not Detected (NotDetected) 01/28/23 15:55 Ur Amphetamines Screen Not Detected (NotDetected) 01/28/23 15:55 U Methamphetamines Scrn Not Detected (NotDetected) 01/28/23 15:55 U Benzodiazepines Scrn Not Detected (NotDetected) 01/28/23 15:55 Urine Cocaine Screen Not Detected (NotDetected) 01/28/23 15:55 U Marijuana (THC) Screen Not Detected (NotDetected) 01/28/23 15:55 Influenza Type A (PCR) Not Detected (Not Detectd) 01/28/23 22:13 Influenza Type B (PCR) Not Detected (Not Detectd) 01/28/23 22:13 RSV (PCR) Not Detected (Not Detectd) 01/28/23 22:13 SARS-CoV-2 (PCR) Not Detected (Not Detectd) 01/28/23 22:13 01/29/23 10:22 IDENTIFYING DATA: Patient is a 52-year-old male, currently lives alone in an apartment, he is currently for per , he has one son and works at the [employer]. HPI: Patient presented to the hospital yesterday complaining of depression and suicidal thoughts and also acute alcohol intoxication. Patient had stated in the ER that he had recently from his about 3 weeks ago and has not been handling it well. Patient also is not on any psychiatric medications, has one previous psychiatric admission in 2014. His urine drug screen was negative, his LFTs were significantly elevated. Patient was admitted voluntarily to the mental health unit and seen today by advertising copywriter. Patient had a soft tone of voice, poor eye contact. He states that he has been feeling depressed lately and it has been getting worse. He was minimizing his need for hospitalization and also his drinking. He claims that he called the crisis line yesterday due to being heavily intoxicated and stated that he was feeling depressed and suicidal and claims that "the medicaid plan compliance director just came to my door". He states that he was brought to the hospital. He claims that recently he has been dealing with insomnia, the separation from his for about 3 weeks now. He states that they are also under financial stress. Claims that he is having anxiety at this time. States that he drank "a lot" yesterday and states that it was mainly moonshine and several beers. He states that he does have binge episodes of drinking on and off for about 30 years now. He claims that he does not have any withdrawals that are significant from alcohol and no DUIs however has been to rehab once in the past and does not want to go back. He claims that he does not have access to guns or weapons at home, claims his sleep is bad, appetite is fair. He was denying any current suicidal thoughts or any homicidal ideations intent or plan. At this time patient denies any auditory or visual hallucinations. Patient denies any flight of ideas racing thoughts and increased in goal directed behavior. Patient admits to using alcohol as noted above, also smokes cigarettes daily. PAST PSYCHIATRIC HISTORY: Patient states that depression and alcohol abuse. Patient denies being on any psychiatric medications currently however states that he was previously on Zoloft when he was previously admitted and also has tried trazodone in the past. Patient was last psychiatrically hospitalized on mental health unit in 2013. Patient denies any psychiatric outpatient follow- up. Patient denies any history of suicide attempts in the past. PMH:Past Medical History: Chest Pain / Angina, COPD, GERD/Reflux, Hearing Disorder / Deafness, Hypertension Additional Past Medical History / Comment(s): Heart murmur, frequent diarrhea, daily gerd, bilateral [place]-wears L hearing aide. History of Any Multi-Drug Resistant Organisms: None Reported Past Surgical History: Ear Surgery, Hernia Repair Additional Past Surgical History / Comment(s): Isac fundloplication, EGD, colonoscopy, multiple bilateral ear surgeries/tubes and eardrum reconstructions. Past Anesthesia/Blood Transfusion Reactions: No Reported Reaction Additional Past Anesthesia/Blood Transfusion Reaction / Comment(s): no hx blood transfusion Past Psychological History: Depression Smoking Status: Current every day smoker Past Alcohol Use History: Daily Past Drug Use History: Marijuana ALLERGIES: as per EMR CHEMICAL DEPENDENCY HISTORY: as per HPI FAMILY PSYCHIATRIC/SUBSTANCE USE HISTORY: denies SOCIAL HISTORY: Patient was born and raised in [place] and also in [facility]. He claims that he completed up to the 12th grade in school however did not graduate. 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 Claims that he currently lives alone in an apartment, he is however they are currently for about 3 weeks now. He has one son. Dates that he went to alf once in the past briefly for child support. MENTAL STATUS EXAM: General Appearance: Patient appears to be thin, wearing glasses, mildly disheveled appearance, stated age is alert, superficial at times however attempts to cooperate. Patient appears to have poor hygiene and grooming. Behavior: Patient is seated without any agitated behavior. Superficial. Minimizing. Speech: Patient's speech is fluent and nonpressured. Soft tone. Mood/Affect: Patient reports their mood is depressed and anxious, affect is congruent and constricted. Suicidality/Homicidality: Patient denies having any homicidal ideation intent or plan. Denies any suicidal ideations intent or plan Perceptions: Patient denies any visual hallucinations and denies any auditory hallucinations Though content/process: There is no evidence of any delusional thought content and thought process is linear and goal-directed. Minimizing his need for hospitalization and also his alcohol use Memory and concentration: AOX3, grossly intact for the purposes of this session. Can spell "WORLD" backwards Judgment and insight: poor STRENGTHS/WEAKNESSES: strength is that patient is resilient. Weakness is that patient has poor judgment and is impulsive and has a history of alcohol abuse INTELLECT: average IMPRESSIONS: Major depressive disorder, without psychotic features Alcohol use disorder Nicotine dependence PLAN: -Patient is admitted under voluntary status to MHU for stabilization of psychiatric symptoms and safety. Patient has signed adult voluntary form and medication consent and is placed in patient's chart. -Medications : Will start patient on Zoloft 50 mg daily for mood/anxiety, trazodone 50 mg daily at bedtime for insomnia/mood. We'll start a tapering dose of Librium 20 mg 3 times a day for withdrawal symptoms. Patient was also offere d into cravings medications however declined at this time. -Ativan and Zyprexa PRN for agitation/aggression -thiamine, MVM for etoh use -CITN protocol with Ativan PRN for ETOH withdrawal -Patient was counselled on substance abuse and desired to cut back on use however states he does not want to go back to rehab. -Patient was informed of the risks, benefits and side effects of the medication and patient verbally consented to taking the medications. Patient signed med consent form and was placed in chart. -Internal Medicine consult to perform medical evaluation and physical. -NRT - nicotine patch -SW on board for discharge planning. Encourage patient to participate in groups to work on coping skills.
[2023-01-29] MEDS: MULTIVITAMINS, THERA 1 EACH TAB PO SCH (11:14)
[2023-01-29] MEDS: FOLIC ACID 1 MG TAB PO SCH (11:14)
[2023-01-29] MEDS: SERTRALINE 50 MG TAB PO SCH (11:14)
[2023-01-29 16:00] LABS: Hepatitis A Antibody IgM Nonreactive (Nonreactive); Hepatitis B Core IgM Nonreactive (Nonreactive); Hepatitis C IgG Antibody Nonreactive (Nonreactive)
[2023-01-29 17:37] LABS: Hepatitis B Surface Antigen Nonreactive (Nonreactive)
[2023-01-29] MEDS: LOSARTAN 50 MG TAB PO SCH (18:00)
[2023-01-29] MEDS ORDERED: SYMBICORT 160-4.5 MCG INHALER INHALATION SCH (20:00)
[2023-01-29] MEDS ORDERED: traZODone HCL 50 MG TAB PO SCH (21:00)
--- NOTE | 2023-01-29 23:21 | CONS ---
CONSULTATION HISTORY OF PRESENT ILLNESS: This is a 52-year-old white male with past medical history of hypertension, COPD, he is in the psychiatric unit. Medical consult. He states he is not suicidal. He has been depressed for last 3 weeks as he broke up with his . Apparently, they are now. Anyways, he has history of depression. He says he has been in the psych hays, but it has been years and years ago. SOCIAL HISTORY: Does smoke as an outpatient. MEDICATIONS: He takes, 1. Symbicort 160/4.5 two puffs b.i.d. 2. Losartan 50 mg 1 daily. The med rec is incorrect in the computer. PHYSICAL EXAMINATION: GENERAL: The patient is ambulating. He is alert and oriented x3. He is giving appropriate answers. He denies suicidal ideations. He looks his stated norm from me knowing him in the past. He looks fine. VITAL SIGNS: Temp 96.8, blood pressure is 130s to 160s over 81 to 97, pulse 97 on room air. CARDIOVASCULAR: S1, S2. No murmurs, rubs, or gallops. LUNGS: Decreased breath sounds x4. HEMATOLOGY: Negative for Homans. PSYCH: Fair mood and affect. NEUROLOGIC: Alert and oriented x3. ASSESSMENT: COPD, hypertension, depression. We will restart his losartan, Symbicort, Lasix at home. Continue current treatments. Per psych criteria medically stable as can be, elevated liver enzymes. We are going to check him for hepatitis and do an ultrasound of his liver. Please see further orders. MMODL / IJN: [id number] /
[2023-01-30 06:54] VITALS: RESP 16
[2023-01-30] MEDS: MULTIVITAMINS, THERA 1 EACH TAB PO SCH (08:28)
[2023-01-30] MEDS: THIAMINE 100 MG TAB PO SCH (08:28)
[2023-01-30] MEDS: LOSARTAN 50 MG TAB PO SCH (08:28)
[2023-01-30] MEDS: SERTRALINE 50 MG TAB PO SCH (08:28)
[2023-01-30] MEDS: FOLIC ACID 1 MG TAB PO SCH (08:28)
[2023-01-30] MEDS: SYMBICORT 160-4.5 MCG INHALER (MHU) INHALATION SCH ×2 (08:31→21:01)
--- NOTE | 2023-01-30 10:15 | P.PN ---
Progress Note - Text Progress Note Date: 01/30/23 Interval History: Patient was seen [wandering the hallways] and was directable and agreeable to speak with freelance writer in the office. Patient appears to have improvement in his hygiene and grooming today. He states that he did not sleep well last night with the dose of trazodone and requested to have it increased. He states that he slept about 5 hours which is interrupted. He claims that he was having some issues with his roommate as well. He claims that he has been going to some groups however is fairly vague about what he is learning. He was somewhat superficial about his drinking and continues to refuse rehab at this time. He states that his mood and anxiety of being gradually improving and wants remain on the same dose of Zoloft. He states that he has been eating fairly at this time. At this time patient denies any suicidal or homical ideations, intent or plan. Patient denies any auditory, visual hallucinations and denies any paranoia or delusions. Patient denies any side effects from the medications and has been compliant with meds. Mental Status Exam: General Appearance: Patient appears to be thin, wearing glasses, mildly disheveled appearance, stated age is alert, superficial at times however attempts to cooperate. Patient appears to have improving hygiene and grooming. Behavior: Patient is seated without any agitated behavior. Superficial, improving mildly Speech: Patient's speech is fluent and nonpressured. Soft tone. Mood/Affect: Patient reports their mood is depressed and anxious improving mildly, affect is congruent Suicidality/Homicidality: Patient denies having any homicidal ideation intent or plan. Denies any suicidal ideations intent or plan Perceptions: Patient denies any visual hallucinations and denies any auditory hallucinations Though content/process: There is no evidence of any delusional thought content and thought process is linear and goal-directed. Minimizing his alcohol use Memory and concentration: AOX3, grossly intact for the purposes of this session Judgment and insight: Improving mildly IMPRESSIONS: Major depressive disorder, without psychotic features Alcohol use disorder Nicotine dependence PLAN: -Patient is admitted under voluntary status to MHU for stabilization of psychiatric symptoms and safety. Patient has signed adult voluntary form and medication consent and is placed in patient's chart. -Medications : Zoloft 50 mg daily for mood/anxiety, increase trazodone 100 mg daily at bedtime for insomnia/mood. decrease dose of Librium 10 mg 4 times a day for withdrawal symptoms and continue tapering tomorrow. -Ativan and Zyprexa PRN for agitation/aggression -thiamine, MVM for etoh use -CIWA protocol with Ativan PRN for ETOH withdrawal -NRT - nicotine patch -SW on board for discharge planning. Encourage patient to participate in groups to work on coping skills. possible discharge tomorrow back home if patient is doing well, if not then consider d/c friday. patient is refusing rehab at this time.
[2023-01-30 11:42] VITALS: BMI 19.8
--- NOTE | 2023-01-30 14:28 | US ---
EXAMINATION TYPE: US abdomen complete DATE OF EXAM: 01/30/2023 COMPARISON: CT CLINICAL INDICATION: Male, 52 years old with history of lft elevation; Elevated LFT's TECHNIQUE: Multiple sonographic images of the abdomen are obtained. FINDINGS: EXAM MEASUREMENTS: Liver Length: 15.2 cm Gallbladder Wall: 0.4 cm CBD: 0.4 cm Right Kidney: 10.3 x 5.0 x 4.7 cm Left Kidney: 11.5 x 5.8 x 5.3 cm Pancreas: Obscured by bowel gas Liver: Cyst lateral right lobe= 0.9 x 1.0 x 1.0 cm, echogenic in appearance Gallbladder: Thickened wall, lumen clear, no evidence for cholelithiasis. Evidence for sonographic Ladd's sign: No CBD: wnl Spleen: Obscured by overlying bowel gas Right Kidney: wnl, lower pole gassed out Left Kidney: wnl Upper IVC: wnl Abd Aorta: Obscured by overlying bowel gas The liver is homogenous without evidence of solid mass. The intrahepatic portion of the IVC and prox imal abdominal aorta are within normal limits. There is no evidence of cholelithiasis. Common bile duct is unremarkable. The visualized portions of the pancreas are homogenous. The spleen is unremar kable. Kidneys are symmetric and free of hydronephrosis. No renal lesions are seen. IMPRESSION: 1. No evidence for suspicious liver mass or ductal dilation. There is a simple hepatic cyst. 2. Somewhat thickened gallbladder orta correlate for chronic cholecystitis. Findings could just be secondary to nondistended state. No additional evidence for acute abdominal process.
[2023-01-30 16:30] LABS: Chol/HDL Ratio 1.85 Ratio; LDL Cholesterol,Calculated 69.9 mg/dL (0.0-131.0); VLDL Calculation 14.22 mg/dL (5.00-40.00)
[2023-01-30] MEDS ORDERED: traZODone HCL 100 MG TAB PO SCH (21:00)
[2023-01-31 07:01] VITALS: BP 125/75; PULSE 97; TEMP 96.9
[2023-01-31] MEDS: SERTRALINE 50 MG TAB PO SCH (08:54)
[2023-01-31] MEDS: THIAMINE 100 MG TAB PO SCH (08:55)
[2023-01-31] MEDS: SYMBICORT 160-4.5 MCG INHALER (MHU) INHALATION SCH (08:55)
[2023-01-31] MEDS: FOLIC ACID 1 MG TAB PO SCH (08:55)
[2023-01-31] MEDS: LOSARTAN 50 MG TAB PO SCH (08:55)
[2023-01-31] MEDS: MULTIVITAMINS, THERA 1 EACH TAB PO SCH (08:55)
--- NOTE | 2023-01-31 12:11 | P.DS ---
Providers Date of admission: 01/28/23 23:50 Attending physician: Genaro Pritchett MD Consults: 01/28/23 23:57 Consult Physician Routine Consulting Provider: Trino Ely Consult Reason/Comments: H&P and medical Do you want consulting provider notified?: Yes [facility] Course: After hospitalization patient received a routine physical examination were no acute physical issues were identified at this time that require attention Patient's was given the feedback on his current labs especially the liver function tests they were affected by his chronic alcoholism that included AST of 334, LDL 93, alkaline phosphatase of 1:30 and HDL of 98 Patient was briefed on the effects and side effects of chronic alcohol intake and is effects of the liver causing cirrhosis as well as on the brain and kidneys Therapy has focused on educating the patient regarding need for further follow- up care including attending AA and NA meetings Patient this time declined any pharmacotherapy and states that he is handling it fairly well and has not dealt with any withdrawal symptoms but is open to taking vitamin B1 Patient also reports that he would be willing to get some outpatient counseling regarding the marital breakup which was mainly due to financial conflicts with the seem to have difficulty maintaining steady employment [employer] supported for a month and patient at this time is unaware of any support system that is to be established Patient also is very concerned about losing his job where he works full-time at a [employer] for the last 10 years and does not want to lose his job Health Concerns: Patient was given the feedback regarding the effect of alcohol on his liver and general organ system as described above Pertinent Studies: Routine blood workup and labs as described above Procedures: None performed Plan - Discharge Summary Discharge Rx Participant: Yes New Discharge Prescriptions: No Action No Known Home Medications Discharge Medication List No Known Home Medications 01/28/23 [History] Follow up Appointment(s)/Referral(s): Trino Ely MD [Primary Care Provider] - 1-2 days Activity/Diet/Wound Care/Special Instructions: Avoid the use of street drugs and alcohol. Take all medications as prescribed. When you are in need of refills on your medications, please contact your medical provider and/or outpatient psychiatrist to have this done. Please go to scheduled outpatient appointments for aftercare treatment. If symptoms return or become worse, call the crisis line at and/or go to the nearest emergency room for evaluation.
[2023-02-01] MEDS ORDERED: SERTRALINE 50 MG TAB PO SCH (09:00)
[2023-02-01] MEDS ORDERED: SYMBICORT 160-4.5 MCG INHALER (MHU) INHALATION SCH (09:00)
== END 2023-01-31 14:08 | disposition home or self-care (01) | DRG 756 ==
LOC: EC 14:39 → 3MHU 23:50
PROVIDERS: ADMIT Psychiatry & Neurology Psychiatry; ATTEND Psychiatry & Neurology Psychiatry
DX: R45.851 Suicidal ideations (principal); F10.229 Alcohol dependence with intoxication, unspecified; F17.210 Nicotine dependence, cigarettes, uncomplicated; H91.90 Unspecified hearing loss, unspecified ear; I10 Essential (primary) hypertension; Z82.5 Family history of asthma and other chronic lower respiratory diseases; Z83.3 Family history of diabetes mellitus; Z91.148 Patient's other noncompliance with medication regimen for other reason; Z20.822 Contact with and (suspected) exposure to COVID-19
CPT/HCPCS: 76700; 80053; 80061; 80074; 80306; 82075; 83036; 84443; 85025; 87636; 96372; 99285